=== PATIENT | female | born 1940 | race Caucasian/White ===

== ENCOUNTER 2017-10-04 13:33 | Emergency (ER) | payer MEDICARE, BC ==
[~2017-10-04] VITALS: Ht 157.5 cm; Wt 78.5 kg
[2017-10-04] MEDS ORDERED: normal saline 1000ML IV soln IVB ONE (13:45)
[2017-10-04 14:27] LABS: BASOPHILS # (AUTO) 0.1 X10'3 (0-0.2); BASOPHILS % (AUTO) 0.8 % (0-1); EOSINOPHILS # (AUTO) 0.1 X10'3 (0-0.9); EOSINOPHILS % (AUTO) 1.9 % (0-6); HEMATOCRIT 37.8 % (35.0-45.0); HEMOGLOBIN 12.2 g/dl (12.0-16.0); LYMPHOCYTES # (AUTO) 0.6 X10'3 (1.1-4.8); LYMPHOCYTES % (AUTO) 8.3 % (21-51); MEAN CORPUSCULAR HGB CONC 32.3 % (33.0-36.5); MEAN CORPUSCULAR VOLUME 80.5 FL (78-98); MEAN PLATELET VOLUME 8.1 FL (7.4-10.4); MONOCYTES # (AUTO) 0.4 X10'3 (0-0.9); MONOCYTES % (AUTO) 5.5 % (2-12); NEUTROPHILS # (AUTO) 6.2 X10'3 (1.8-7.7); NEUTROPHILS % (AUTO) 83.5 % (42-75); PLATELET COUNT 223 X10'3 (140-440); WHITE BLOOD COUNT 7.4 X10'3 (4.5-11.0)
[2017-10-04 14:37] LABS: ALANINE AMINOTRANSFERASE 13 U/L (12-78); ALBUMIN 3.5 G/DL (3.4-5.0); ALBUMIN/GLOBULIN RATIO 0.9 (1.1-1.5); ALKALINE PHOSPHATASE 112 IU/L (46-116); ANION GAP 13 (8-16); ASPARTATE AMINO TRANSFERASE 16 U/L (10-37); BILIRUBIN,TOTAL 0.5 MG/DL (0.1-1.0); BLOOD UREA NITROGEN 30 MG/DL (7-18); CALCIUM 9.1 MG/DL (8.5-10.1); CHLORIDE 110 MMOL/L (99-107); CREATININE 1.88 MG/DL (0.40-0.90); GLUCOSE 96 MG/DL (70-104); POTASSIUM 4.9 MMOL/L (3.5-5.1); SODIUM 141 MMOL/L (135-145); TOTAL CARBON DIOXIDE 17.6 MMOL/L (24-32); TOTAL PROTEIN 7.3 G/DL (6.4-8.2); eGFR 26 ML/MIN
[2017-10-04 14:45] LABS: MAGNESIUM 1.7 MG/DL (1.5-2.4)
[2017-10-04] MEDS ORDERED: HYDROcodone/acetaminophen 5mg/325mg tablet PO ONE (15:05)
[2017-10-04] MEDS ORDERED: HYDR-3965 PO (15:05)
[2017-10-04] MEDS ORDERED: normal saline 1000ml 1,000 ML IV ONE (15:10)
[2017-10-04 16:18] VITALS: BP 154/101
[2017-10-04 16:35] LABS: CLARITY,URINE SLIGHTLY CLOUDY (Clear); COLOR,URINE YELLOW (Yellow); GLUCOSE, URINE NEGATIVE (Neg); KETONES,URINE NEGATIVE (Neg); LEUKOCYTE ESTERASE ,URINE NEGATIVE (Neg); NITRITES, URINE NEGATIVE (Neg); OCCULT BLOOD,URINE NEGATIVE (Neg); PH,URINE 5.5 (4.8-8.0); PROTEIN,URINE TRACE mg/dl (Neg); UROBILINOGEN,URINE 0.2 E.U/dL (0.2-1.0)
[2017-10-04 16:36] LABS: UA COLLECTION TYPE CLN CATCH MIDSTREAM
[2017-10-04 16:48] LABS: SQUAMOUS EPITHELIAL CELL,UR MODERATE /LPF (FEW)
[2017-10-04 16:49] LABS: BACTERIA,URINE 1+ /HPF (Neg); RBC,URINE 0-2 /HPF (0-2); WBC,URINE 0-4 /HPF (0-4)
== END 2017-10-04 16:27 | disposition home or self-care (01) ==
LOC: ER 13:34
DX: S32.019A Unspecified fracture of first lumbar vertebra, initial encounter for closed fracture (principal); S32.049A Unspecified fracture of fourth lumbar vertebra, initial encounter for closed fracture; E86.0 Dehydration; I10 Essential (primary) hypertension; J44.9 Chronic obstructive pulmonary disease, unspecified; Z88.0 Allergy status to penicillin; Z86.73 Personal history of transient ischemic attack (TIA), and cerebral infarction without residual deficits; Z98.890 Other specified postprocedural states; W19.XXXA Unspecified fall, initial encounter; Y93.89 Activity, other specified; Y92.89 Other specified places as the place of occurrence of the external cause; Y99.8 Other external cause status
CPT/HCPCS: 36415; 72070; 72100; 80053; 81001; 83735; 84443; 84484; 85025; 93005; 96360; 99285; J7030

== ENCOUNTER 2017-10-15 17:45 | Inpatient (IN) | payer MEDICARE, BC ==
[~2017-10-15] VITALS: Ht 154.9 cm; Wt 77.7 kg
[~2017-10-15 17:45] MED LIST: HYDR-3965 PO
[2017-10-15] MEDS ORDERED: normal saline 1000ML IV soln IVB ONE ×2 (19:00→20:20)
[2017-10-15 19:17] LABS: BASOPHILS % (AUTO) 0.2 % (0-1); EOSINOPHILS # (AUTO) 0.2 X10'3 (0-0.9); EOSINOPHILS % (AUTO) 2.2 % (0-6); HEMATOCRIT 35.2 % (35.0-45.0); HEMOGLOBIN 11.6 g/dl (12.0-16.0); LYMPHOCYTES # (AUTO) 0.7 X10'3 (1.1-4.8); LYMPHOCYTES % (AUTO) 8.4 % (21-51); MEAN CORPUSCULAR HGB CONC 32.8 % (33.0-36.5); MEAN CORPUSCULAR VOLUME 82.3 FL (78-98); MEAN PLATELET VOLUME 8.8 FL (7.4-10.4); MONOCYTES # (AUTO) 0.8 X10'3 (0-0.9); MONOCYTES % (AUTO) 10.7 % (2-12); NEUTROPHILS # (AUTO) 6.1 X10'3 (1.8-7.7); NEUTROPHILS % (AUTO) 78.5 % (42-75); PLATELET COUNT 298 X10'3 (140-440); RED BLOOD COUNT 4.27 X10'6 (4.20-5.60); RED CELL DISTRIBUTION WIDTH 20.4 % (11.5-14.5); WHITE BLOOD COUNT 7.8 X10'3 (4.5-11.0)
[2017-10-15 19:25] LABS: ALANINE AMINOTRANSFERASE 11 U/L (12-78); ALBUMIN/GLOBULIN RATIO 0.7 (1.1-1.5); ALKALINE PHOSPHATASE 125 IU/L (46-116); ANION GAP 12 (8-16); ASPARTATE AMINO TRANSFERASE 17 U/L (10-37); BILIRUBIN,TOTAL 0.4 MG/DL (0.1-1.0); BLOOD UREA NITROGEN 50 MG/DL (7-18); BUN/CREATININE RATIO 20.5 (6.6-38.0); CALCIUM 9.4 MG/DL (8.5-10.1); CHLORIDE 108 MMOL/L (99-107); CREATININE 2.44 MG/DL (0.40-0.90); GLUCOSE 100 MG/DL (70-104); LIPASE 307 U/L (73-393); POTASSIUM 4.2 MMOL/L (3.5-5.1); SODIUM 139 MMOL/L (135-145); TOTAL CARBON DIOXIDE 18.9 MMOL/L (24-32); TOTAL PROTEIN 7.1 G/DL (6.4-8.2); eGFR 19 ML/MIN
[2017-10-15 19:53] LABS: CLARITY,URINE SLIGHTLY CLOUDY (Clear); COLOR,URINE YELLOW (Yellow); GLUCOSE, URINE NEGATIVE (Neg); KETONES,URINE NEGATIVE (Neg); LEUKOCYTE ESTERASE ,URINE SMALL (Neg); NITRITES, URINE NEGATIVE (Neg); OCCULT BLOOD,URINE SMALL (Neg); PROTEIN,URINE TRACE mg/dl (Neg); UROBILINOGEN,URINE 0.2 E.U/dL (0.2-1.0)
[2017-10-15 20:04] LABS: UA COLLECTION TYPE CLN CATCH MIDSTREAM
[2017-10-15 20:06] LABS: BACTERIA,URINE FEW /HPF (Neg); RBC,URINE 0-2 /HPF (0-2); SQUAMOUS EPITHELIAL CELL,UR MODERATE /LPF (FEW); WBC,URINE 0-4 /HPF (0-4)
[2017-10-15] MEDS ORDERED: ACET-2119 PO (20:53)
[2017-10-15] MEDS ORDERED: ALLO100T PO (20:53)
[2017-10-15] MEDS ORDERED: DRON400T2 PO (20:53)
[2017-10-15] MEDS ORDERED: FOLI0.4T2 PO (20:53)
[2017-10-15] MEDS ORDERED: FAMO20TA8 PO (20:53)
[2017-10-15] MEDS ORDERED: TRAM50TA2 PO (20:53)
[2017-10-15] MEDS ORDERED: LEVO50TA8 PO (20:53)
[2017-10-15] MEDS: normal saline 1000ml 1,000 ML IV SCH (22:51)
[2017-10-15] MEDS ORDERED: mag hydrox/Alum hydrox/simeth 30ml oral suspension PO PRN (22:55)
[2017-10-15] MEDS ORDERED: ondansetron/PF 4mg/2ml inj IV PRN (22:55)
[2017-10-15] MEDS ORDERED: magnesium hydroxide 30ml (MOM) UD suspension PO PRN (22:55)
[2017-10-15] MEDS ORDERED: acetaminophen 325mg tablet PO PRN (22:55)
[2017-10-16] VITALS: BP 130/77
[2017-10-16 04:29] LABS: BASOPHILS % (AUTO) 0.6 % (0-1); EOSINOPHILS # (AUTO) 0.1 X10'3 (0-0.9); EOSINOPHILS % (AUTO) 2.2 % (0-6); HEMOGLOBIN 9.7 g/dl (12.0-16.0); LYMPHOCYTES # (AUTO) 0.9 X10'3 (1.1-4.8); LYMPHOCYTES % (AUTO) 14.7 % (21-51); MEAN CORPUSCULAR HEMOGLOBIN 26.3 PG (27.0-31.0); MEAN CORPUSCULAR HGB CONC 32.3 % (33.0-36.5); MEAN CORPUSCULAR VOLUME 81.4 FL (78-98); MONOCYTES # (AUTO) 0.6 X10'3 (0-0.9); MONOCYTES % (AUTO) 11.1 % (2-12); NEUTROPHILS # (AUTO) 4.2 X10'3 (1.8-7.7); NEUTROPHILS % (AUTO) 71.4 % (42-75); PLATELET COUNT 259 X10'3 (140-440); RED BLOOD COUNT 3.68 X10'6 (4.20-5.60); RED CELL DISTRIBUTION WIDTH 20.2 % (11.5-14.5); WHITE BLOOD COUNT 5.9 X10'3 (4.5-11.0)
[2017-10-16 05:00] LABS: ALANINE AMINOTRANSFERASE 9 U/L (12-78); ALBUMIN 2.4 G/DL (3.4-5.0); ALBUMIN/GLOBULIN RATIO 0.7 (1.1-1.5); ALKALINE PHOSPHATASE 101 IU/L (46-116); ANION GAP 14 (8-16); ASPARTATE AMINO TRANSFERASE 19 U/L (10-37); BILIRUBIN,TOTAL 0.3 MG/DL (0.1-1.0); BLOOD UREA NITROGEN 40 MG/DL (7-18); BUN/CREATININE RATIO 22.1 (6.6-38.0); CHLORIDE 113 MMOL/L (99-107); CREATININE 1.81 MG/DL (0.40-0.90); GLUCOSE 82 MG/DL (70-104); POTASSIUM 3.8 MMOL/L (3.5-5.1); SODIUM 144 MMOL/L (135-145); TOTAL CARBON DIOXIDE 16.6 MMOL/L (24-32); TOTAL PROTEIN 5.7 G/DL (6.4-8.2); eGFR 27 ML/MIN
[2017-10-16 06:00] VITALS: BP 117/66
[2017-10-16] MEDS: heparin, porcine 5000 units/ml vial SQ SCH ×2 (07:07→19:58)
[2017-10-16] MEDS: levoTHYROXINE 25mcg tablet PO SCH (07:07)
[2017-10-16] MEDS: famotidine 20mg tablet PO SCH ×2 (07:07→19:58)
[2017-10-16] MEDS: folic acid 1mg tablet PO SCH (07:07)
[2017-10-16] MEDS: dronedarone hcl 400mg tablet PO SCH ×2 (07:14→19:57)
[2017-10-16] MEDS: LIDOcaine 5% patch TP SCH (07:17)
[2017-10-16 10:00] VITALS: BP 129/78
[2017-10-16] MEDS: normal saline 1000ml 1,000 ML IV SCH ×2 (15:57→23:20)
[2017-10-16] MEDS: acetaminophen 325mg tablet PO PRN ×2 (18:10→22:03)
[2017-10-16 18:30] VITALS: BP 139/78
[2017-10-16 23:03] VITALS: BP 138/66
[2017-10-17] MEDS: normal saline 1000ml 1,000 ML IV SCH ×2 (04:22→23:27)
[2017-10-17] MEDS: acetaminophen 325mg tablet PO PRN ×4 (05:42→23:28)
[2017-10-17 06:00] VITALS: BP 136/69
[2017-10-17 07:11] LABS: BASOPHILS % (AUTO) 0.2 % (0-1); EOSINOPHILS # (AUTO) 0.1 X10'3 (0-0.9); EOSINOPHILS % (AUTO) 3.3 % (0-6); HEMOGLOBIN 9.6 g/dl (12.0-16.0); LYMPHOCYTES # (AUTO) 0.7 X10'3 (1.1-4.8); LYMPHOCYTES % (AUTO) 15.2 % (21-51); MEAN CORPUSCULAR HEMOGLOBIN 26.3 PG (27.0-31.0); MEAN CORPUSCULAR HGB CONC 32.2 % (33.0-36.5); MEAN CORPUSCULAR VOLUME 81.6 FL (78-98); MEAN PLATELET VOLUME 7.8 FL (7.4-10.4); MONOCYTES # (AUTO) 0.4 X10'3 (0-0.9); MONOCYTES % (AUTO) 9.8 % (2-12); NEUTROPHILS # (AUTO) 3.2 X10'3 (1.8-7.7); NEUTROPHILS % (AUTO) 71.5 % (42-75); PLATELET COUNT 274 X10'3 (140-440); RED BLOOD COUNT 3.67 X10'6 (4.20-5.60); RED CELL DISTRIBUTION WIDTH 19.9 % (11.5-14.5); WHITE BLOOD COUNT 4.4 X10'3 (4.5-11.0)
[2017-10-17 07:19] LABS: IMMUNOGLOBULIN A, QN, SERUM 61 mg/dL (64-422); IMMUNOGLOBULIN G, QN, SERUM 711 mg/dL (700-1600); IMMUNOGLOBULIN M, QN, SERUM 33 mg/dL (26-217)
[2017-10-17 07:39] LABS: % IRON SATURATION 8 % (11-46); IRON 15 UG/DL (49-151); TOTAL IRON BINDING CAPACITY 183 UG/DL (259-388)
[2017-10-17 07:44] LABS: ALANINE AMINOTRANSFERASE 10 U/L (12-78); ALBUMIN 2.5 G/DL (3.4-5.0); ALBUMIN/GLOBULIN RATIO 0.7 (1.1-1.5); ALKALINE PHOSPHATASE 100 IU/L (46-116); ANION GAP 11 (8-16); ASPARTATE AMINO TRANSFERASE 17 U/L (10-37); BILIRUBIN,TOTAL 0.3 MG/DL (0.1-1.0); BLOOD UREA NITROGEN 24 MG/DL (7-18); BUN/CREATININE RATIO 16.6 (6.6-38.0); CALCIUM 8.8 MG/DL (8.5-10.1); CHLORIDE 115 MMOL/L (99-107); CREATININE 1.45 MG/DL (0.40-0.90); FERRITIN 120 NG/ML (8-252); GLUCOSE 83 MG/DL (70-104); POTASSIUM 3.5 MMOL/L (3.5-5.1); SODIUM 143 MMOL/L (135-145); TOTAL PROTEIN 5.9 G/DL (6.4-8.2); eGFR 35 ML/MIN
[2017-10-17] MEDS: famotidine 20mg tablet PO SCH ×2 (08:22→19:34)
[2017-10-17] MEDS: folic acid 1mg tablet PO SCH (08:22)
[2017-10-17] MEDS: dronedarone hcl 400mg tablet PO SCH ×2 (08:22→19:34)
[2017-10-17] MEDS: levoTHYROXINE 25mcg tablet PO SCH (08:22)
[2017-10-17] MEDS: LIDOcaine 5% patch TP SCH (08:23)
[2017-10-17] MEDS: heparin, porcine 5000 units/ml vial SQ SCH ×3 (08:23→19:35)
[2017-10-17 10:00] VITALS: BP 131/68
[2017-10-17 11:25] LABS: OCCULT BLOOD STOOL NEGATIVE (Neg)
[2017-10-17 13:33] LABS: C DIFF SPECIMEN=DIARRHEA? ACCEPTABLE; C DIFFICILE TOXINS A&B NEGATIVE (Neg)
[2017-10-17 13:37] LABS: C DIFF ANTIGEN POSITIVE (NEGATIVE); C DIFF TOXIN (LAMP) POSITIVE (NEG)
[2017-10-17 22:24] VITALS: BP 140/76
[2017-10-18] MEDS: acetaminophen 325mg tablet PO PRN ×3 (03:17→19:34)
[2017-10-18 05:00] VITALS: BP 132/73
[2017-10-18 05:48] LABS: BASOPHILS % (AUTO) 0.8 % (0-1); EOSINOPHILS # (AUTO) 0.2 X10'3 (0-0.9); EOSINOPHILS % (AUTO) 3.9 % (0-6); HEMATOCRIT 28.7 % (35.0-45.0); HEMOGLOBIN 9.4 g/dl (12.0-16.0); LYMPHOCYTES # (AUTO) 0.8 X10'3 (1.1-4.8); LYMPHOCYTES % (AUTO) 16.6 % (21-51); MEAN CORPUSCULAR HEMOGLOBIN 26.5 PG (27.0-31.0); MEAN CORPUSCULAR HGB CONC 32.7 % (33.0-36.5); MONOCYTES # (AUTO) 0.4 X10'3 (0-0.9); MONOCYTES % (AUTO) 8.4 % (2-12); NEUTROPHILS # (AUTO) 3.3 X10'3 (1.8-7.7); NEUTROPHILS % (AUTO) 70.3 % (42-75); PLATELET COUNT 252 X10'3 (140-440); RED BLOOD COUNT 3.55 X10'6 (4.20-5.60); RED CELL DISTRIBUTION WIDTH 20.3 % (11.5-14.5); WHITE BLOOD COUNT 4.6 X10'3 (4.5-11.0)
[2017-10-18 05:52] LABS: ALANINE AMINOTRANSFERASE 9 U/L (12-78); ALBUMIN 2.3 G/DL (3.4-5.0); ALBUMIN/GLOBULIN RATIO 0.7 (1.1-1.5); ALKALINE PHOSPHATASE 98 IU/L (46-116); ANION GAP 12 (8-16); ASPARTATE AMINO TRANSFERASE 10 U/L (10-37); BILIRUBIN,TOTAL 0.3 MG/DL (0.1-1.0); BLOOD UREA NITROGEN 18 MG/DL (7-18); BUN/CREATININE RATIO 15.8 (6.6-38.0); CALCIUM 7.8 MG/DL (8.5-10.1); CHLORIDE 115 MMOL/L (99-107); CREATININE 1.14 MG/DL (0.40-0.90); GLUCOSE 87 MG/DL (70-104); POTASSIUM 3.3 MMOL/L (3.5-5.1); SODIUM 144 MMOL/L (135-145); TOTAL CARBON DIOXIDE 16.8 MMOL/L (24-32); TOTAL PROTEIN 5.4 G/DL (6.4-8.2); eGFR 46 ML/MIN
[2017-10-18] MEDS ORDERED: potassium Cl 20 mEq SR tablet PO PRN (07:00)
[2017-10-18] MEDS ORDERED: magnesium 4gm in 100ml NS 100 ML IV PRN (07:00)
[2017-10-18] MEDS ORDERED: potassium Cl 40MEQ/NS 500ml 500 ML IV PRN ×2 (07:00)
[2017-10-18] MEDS ORDERED: magnesium Cl slow-release 64mg tablet PO PRN (07:00)
[2017-10-18] MEDS: normal saline 1000ml 1,000 ML IV SCH (07:49)
[2017-10-18] MEDS: levoTHYROXINE 25mcg tablet PO SCH (07:51)
[2017-10-18] MEDS: heparin, porcine 5000 units/ml vial SQ SCH (07:51)
[2017-10-18] MEDS: LIDOcaine 5% patch TP SCH (07:51)
[2017-10-18] MEDS: famotidine 20mg tablet PO SCH ×2 (07:52→19:34)
[2017-10-18] MEDS: folic acid 1mg tablet PO SCH (07:52)
[2017-10-18] MEDS: potassium Cl 20 mEq SR tablet PO PRN ×3 (07:52→20:14)
[2017-10-18] MEDS: dronedarone hcl 400mg tablet PO SCH ×2 (07:53→19:35)
[2017-10-18 10:00] VITALS: BP 132/78
[2017-10-18 18:00] VITALS: BP 125/76
[2017-10-18] MEDS: lactobacillus rhamnosus 10,000 MMU CELLS/CAPSULE PO SCH (19:33)
[2017-10-18 22:10] VITALS: BP 147/71
[2017-10-19] VITALS (17 sets, daily range): BP systolic 123–165; BP diastolic 63–99
[2017-10-19 06:03] LABS: BASOPHILS % (AUTO) 0.5 % (0-1); EOSINOPHILS # (AUTO) 0.2 X10'3 (0-0.9); EOSINOPHILS % (AUTO) 3.2 % (0-6); HEMATOCRIT 30.9 % (35.0-45.0); LYMPHOCYTES # (AUTO) 0.7 X10'3 (1.1-4.8); LYMPHOCYTES % (AUTO) 12.8 % (21-51); MEAN CORPUSCULAR HEMOGLOBIN 26.4 PG (27.0-31.0); MEAN CORPUSCULAR HGB CONC 32.5 % (33.0-36.5); MEAN CORPUSCULAR VOLUME 81.2 FL (78-98); MEAN PLATELET VOLUME 7.7 FL (7.4-10.4); MONOCYTES # (AUTO) 0.4 X10'3 (0-0.9); MONOCYTES % (AUTO) 6.3 % (2-12); NEUTROPHILS # (AUTO) 4.4 X10'3 (1.8-7.7); NEUTROPHILS % (AUTO) 77.2 % (42-75); PLATELET COUNT 260 X10'3 (140-440); RED CELL DISTRIBUTION WIDTH 20.3 % (11.5-14.5); WHITE BLOOD COUNT 5.7 X10'3 (4.5-11.0)
[2017-10-19] MEDS: heparin, porcine 5000 units/ml vial SQ SCH ×2 (06:18→19:48)
[2017-10-19 06:35] LABS: ALANINE AMINOTRANSFERASE 9 U/L (12-78); ALBUMIN 2.4 G/DL (3.4-5.0); ALBUMIN/GLOBULIN RATIO 0.7 (1.1-1.5); ALKALINE PHOSPHATASE 111 IU/L (46-116); ANION GAP 16 (8-16); ASPARTATE AMINO TRANSFERASE 13 U/L (10-37); BILIRUBIN,TOTAL 0.3 MG/DL (0.1-1.0); BLOOD UREA NITROGEN 17 MG/DL (7-18); BUN/CREATININE RATIO 14.5 (6.6-38.0); CALCIUM 8.1 MG/DL (8.5-10.1); CHLORIDE 116 MMOL/L (99-107); CREATININE 1.17 MG/DL (0.40-0.90); GLUCOSE 74 MG/DL (70-104); MAGNESIUM 1.4 MG/DL (1.5-2.4); POTASSIUM 4.3 MMOL/L (3.5-5.1); SODIUM 145 MMOL/L (135-145); TOTAL PROTEIN 5.7 G/DL (6.4-8.2); eGFR 45 ML/MIN
[2017-10-19 06:40] LABS: TOTAL CARBON DIOXIDE 13.4 MMOL/L (24-32)
[2017-10-19] MEDS: dronedarone hcl 400mg tablet PO SCH ×2 (07:40→19:44)
[2017-10-19] MEDS: folic acid 1mg tablet PO SCH (07:40)
[2017-10-19] MEDS: lactobacillus rhamnosus 10,000 MMU CELLS/CAPSULE PO SCH ×2 (07:40→19:44)
[2017-10-19] MEDS: levoTHYROXINE 25mcg tablet PO SCH (07:48)
[2017-10-19] MEDS: famotidine 20mg tablet PO SCH ×2 (07:48→19:44)
[2017-10-19] MEDS: LIDOcaine 5% patch TP SCH (07:52)
[2017-10-19] MEDS: acetaminophen 325mg tablet PO PRN (07:53)
[2017-10-19] MEDS: magnesium/D5W IVPB 100 ML IV PRN ×2 (10:36→11:43)
[2017-10-19] MEDS ORDERED: vancomycin/NS 1 GM ADD-VANTAGE 250 ML IV ONE (14:00)
[2017-10-19] MEDS ORDERED: clindamycin 600mg/D5W 50ml 50 ML IV ONE (14:00)
[2017-10-19] MEDS ORDERED: ROPIVAcaine 0.5% (5mg/ml) 30ml vial ONE (14:34)
[2017-10-19] MEDS ORDERED: epiNEPHrine 1 mg/ml inj ONE (14:35)
[2017-10-19] MEDS ORDERED: ceFAZolin 1000mg inj ONE (14:35)
[2017-10-19] MEDS ORDERED: BUPIVAcaine/PF 7.5mg/ml (0.75%) 10ml vial ONE (14:35)
[2017-10-19] MEDS ORDERED: iohexol 240mg/ml 10ml vial ONE ×2 (14:45→16:48)
[2017-10-19] MEDS ORDERED: sevoflurane 250ml liquid IH ONE (16:02)
[2017-10-19] MEDS ORDERED: fentaNYL /PF 50mcg/ml 5ml ampule ONE (16:39)
[2017-10-19] MEDS ORDERED: etomidate 2mg/ml inj. ONE (16:43)
[2017-10-19] MEDS ORDERED: metoprolol tartrate 1mg/ml inj IV ONE (16:43)
[2017-10-19] MEDS ORDERED: dexamethasone sod phosphate 4mg/ml inj. ONE (16:56)
[2017-10-19] MEDS ORDERED: iohexol 300 MG/1 ML 50ml polymer ONE (17:20)
[2017-10-19] MEDS ORDERED: albumin (Human) 5% 250ml 250 ML IV ONE (17:32)
[2017-10-19] MEDS: sodium bicarbonate (8.4%) inj. 100 MEQ in dextrose 5%-water 1,000 ML IV SCH (19:51)
[2017-10-20 02:00] VITALS: BP 134/81
[2017-10-20] MEDS: sodium bicarbonate (8.4%) inj. 100 MEQ in dextrose 5%-water 1,000 ML IV SCH ×3 (04:45→22:39)
[2017-10-20] MEDS: acetaminophen 325mg tablet PO PRN ×2 (04:52→22:23)
[2017-10-20 05:00] VITALS: BP 129/70
[2017-10-20 07:07] LABS: BASOPHILS % (AUTO) 0.1 % (0-1); EOSINOPHILS % (AUTO) 0.1 % (0-6); HEMATOCRIT 30.6 % (35.0-45.0); HEMOGLOBIN 9.9 g/dl (12.0-16.0); LYMPHOCYTES # (AUTO) 0.2 X10'3 (1.1-4.8); LYMPHOCYTES % (AUTO) 3.2 % (21-51); MEAN CORPUSCULAR HEMOGLOBIN 26.8 PG (27.0-31.0); MEAN CORPUSCULAR HGB CONC 32.5 % (33.0-36.5); MEAN CORPUSCULAR VOLUME 82.4 FL (78-98); MEAN PLATELET VOLUME 7.7 FL (7.4-10.4); MONOCYTES % (AUTO) 0.7 % (2-12); NEUTROPHILS # (AUTO) 5.3 X10'3 (1.8-7.7); NEUTROPHILS % (AUTO) 95.9 % (42-75); PLATELET COUNT 257 X10'3 (140-440); RED BLOOD COUNT 3.71 X10'6 (4.20-5.60); RED CELL DISTRIBUTION WIDTH 18.4 % (11.5-14.5); WHITE BLOOD COUNT 5.5 X10'3 (4.5-11.0)
[2017-10-20] MEDS: folic acid 1mg tablet PO SCH (07:15)
[2017-10-20] MEDS: famotidine 20mg tablet PO SCH ×2 (07:15→19:39)
[2017-10-20] MEDS: levoTHYROXINE 25mcg tablet PO SCH (07:15)
[2017-10-20] MEDS: lactobacillus rhamnosus 10,000 MMU CELLS/CAPSULE PO SCH ×2 (07:15→19:39)
[2017-10-20] MEDS: heparin, porcine 5000 units/ml vial SQ SCH ×2 (07:17→19:39)
[2017-10-20] MEDS: LIDOcaine 5% patch TP SCH (07:18)
[2017-10-20] MEDS: dronedarone hcl 400mg tablet PO SCH ×2 (07:23→19:39)
[2017-10-20 07:41] LABS: ALANINE AMINOTRANSFERASE 10 U/L (12-78); ALBUMIN 2.6 G/DL (3.4-5.0); ALBUMIN/GLOBULIN RATIO 0.9 (1.1-1.5); ALKALINE PHOSPHATASE 114 IU/L (46-116); ANION GAP 10 (8-16); ASPARTATE AMINO TRANSFERASE 12 U/L (10-37); BILIRUBIN,TOTAL 0.3 MG/DL (0.1-1.0); BLOOD UREA NITROGEN 12 MG/DL (7-18); BUN/CREATININE RATIO 9.8 (6.6-38.0); CALCIUM 8.1 MG/DL (8.5-10.1); CHLORIDE 109 MMOL/L (99-107); CREATININE 1.22 MG/DL (0.40-0.90); GLUCOSE 203 MG/DL (70-104); MAGNESIUM 2.1 MG/DL (1.5-2.4); POTASSIUM 4.1 MMOL/L (3.5-5.1); SODIUM 139 MMOL/L (135-145); TOTAL CARBON DIOXIDE 19.8 MMOL/L (24-32); TOTAL PROTEIN 5.6 G/DL (6.4-8.2); eGFR 43 ML/MIN
[2017-10-20 10:00] VITALS: BP 133/75
[2017-10-20 18:00] VITALS: BP 135/91
[2017-10-20 22:00] VITALS: BP 146/93
[2017-10-21] MEDS: acetaminophen 325mg tablet PO PRN ×2 (04:52→20:49)
[2017-10-21 06:00] VITALS: BP 144/66
[2017-10-21 06:55] LABS: POTASSIUM 3.5 MMOL/L (3.5-5.1)
[2017-10-21] MEDS: folic acid 1mg tablet PO SCH (07:29)
[2017-10-21] MEDS: famotidine 20mg tablet PO SCH ×2 (07:29→20:28)
[2017-10-21] MEDS: LIDOcaine 5% patch TP SCH (07:29)
[2017-10-21] MEDS: dronedarone hcl 400mg tablet PO SCH ×2 (07:29→20:28)
[2017-10-21] MEDS: levoTHYROXINE 25mcg tablet PO SCH (07:29)
[2017-10-21] MEDS: lactobacillus rhamnosus 10,000 MMU CELLS/CAPSULE PO SCH ×2 (07:29→20:28)
[2017-10-21] MEDS: heparin, porcine 5000 units/ml vial SQ SCH ×2 (07:30→20:29)
[2017-10-21 10:00] VITALS: BP 126/77
[2017-10-21 12:20] LABS: BASOPHILS % (AUTO) 0.1 % (0-1); EOSINOPHILS # (AUTO) 0.1 X10'3 (0-0.9); HEMOGLOBIN 9.6 g/dl (12.0-16.0); LYMPHOCYTES # (AUTO) 0.6 X10'3 (1.1-4.8); LYMPHOCYTES % (AUTO) 7.2 % (21-51); MEAN CORPUSCULAR HEMOGLOBIN 26.6 PG (27.0-31.0); MEAN CORPUSCULAR HGB CONC 32.9 % (33.0-36.5); MEAN PLATELET VOLUME 7.6 FL (7.4-10.4); MONOCYTES # (AUTO) 0.5 X10'3 (0-0.9); MONOCYTES % (AUTO) 6.1 % (2-12); NEUTROPHILS # (AUTO) 7.5 X10'3 (1.8-7.7); NEUTROPHILS % (AUTO) 85.6 % (42-75); PLATELET COUNT 249 X10'3 (140-440); RED BLOOD COUNT 3.59 X10'6 (4.20-5.60); RED CELL DISTRIBUTION WIDTH 19.9 % (11.5-14.5); WHITE BLOOD COUNT 8.8 X10'3 (4.5-11.0)
[2017-10-21 12:39] LABS: ALBUMIN 2.8 G/DL (3.4-5.0); ANION GAP 8 (8-16); BLOOD UREA NITROGEN 17 MG/DL (7-18); BUN/CREATININE RATIO 10.6 (6.6-38.0); CHLORIDE 106 MMOL/L (99-107); GLUCOSE 85 MG/DL (70-104); POTASSIUM 3.2 MMOL/L (3.5-5.1); SODIUM 141 MMOL/L (135-145); TOTAL CARBON DIOXIDE 26.6 MMOL/L (24-32); eGFR 31 ML/MIN
[2017-10-21] MEDS: normal saline 1000ml 1,000 ML IV SCH (15:10)
[2017-10-21 18:00] VITALS: BP 131/61
[2017-10-21 22:00] VITALS: BP 135/65
[2017-10-21] MEDS ORDERED: magnesium 4gm in 100ml NS 100 ML IV PRN (23:15)
[2017-10-21] MEDS ORDERED: potassium Cl 20 mEq SR tablet PO PRN (23:15)
[2017-10-21] MEDS ORDERED: magnesium Cl slow-release 64mg tablet PO PRN (23:15)
[2017-10-21] MEDS ORDERED: magnesium/D5W IVPB 100 ML IV PRN (23:15)
[2017-10-21] MEDS ORDERED: potassium Cl 40MEQ/NS 500ml 500 ML IV PRN ×2 (23:15)
[2017-10-21] MEDS: potassium Cl 20 mEq SR tablet PO PRN (23:52)
[2017-10-22] MEDS: normal saline 1000ml 1,000 ML IV SCH ×2 (03:07→19:05)
[2017-10-22 05:00] VITALS: BP 127/69
[2017-10-22 06:42] LABS: BASOPHILS % (AUTO) 0.5 % (0-1); EOSINOPHILS # (AUTO) 0.1 X10'3 (0-0.9); EOSINOPHILS % (AUTO) 1.4 % (0-6); HEMATOCRIT 27.2 % (35.0-45.0); HEMOGLOBIN 8.8 g/dl (12.0-16.0); LYMPHOCYTES # (AUTO) 0.9 X10'3 (1.1-4.8); MEAN CORPUSCULAR HEMOGLOBIN 26.2 PG (27.0-31.0); MEAN CORPUSCULAR HGB CONC 32.2 % (33.0-36.5); MEAN CORPUSCULAR VOLUME 81.4 FL (78-98); MEAN PLATELET VOLUME 7.7 FL (7.4-10.4); MONOCYTES # (AUTO) 0.4 X10'3 (0-0.9); MONOCYTES % (AUTO) 7.1 % (2-12); NEUTROPHILS # (AUTO) 3.8 X10'3 (1.8-7.7); PLATELET COUNT 223 X10'3 (140-440); RED BLOOD COUNT 3.34 X10'6 (4.20-5.60); WHITE BLOOD COUNT 5.1 X10'3 (4.5-11.0)
[2017-10-22 06:58] LABS: ALANINE AMINOTRANSFERASE 12 U/L (12-78); ALBUMIN 2.3 G/DL (3.4-5.0); ALBUMIN/GLOBULIN RATIO 0.9 (1.1-1.5); ALKALINE PHOSPHATASE 97 IU/L (46-116); ANION GAP 9 (8-16); ASPARTATE AMINO TRANSFERASE 14 U/L (10-37); BILIRUBIN,TOTAL 0.3 MG/DL (0.1-1.0); BLOOD UREA NITROGEN 14 MG/DL (7-18); CALCIUM 7.9 MG/DL (8.5-10.1); CHLORIDE 111 MMOL/L (99-107); CREATININE 1.17 MG/DL (0.40-0.90); GLUCOSE 75 MG/DL (70-104); MAGNESIUM 1.7 MG/DL (1.5-2.4); PHOSPHORUS 2.4 MG/DL (2.3-4.5); POTASSIUM 3.5 MMOL/L (3.5-5.1); SODIUM 146 MMOL/L (135-145); TOTAL CARBON DIOXIDE 25.9 MMOL/L (24-32); eGFR 45 ML/MIN
[2017-10-22] MEDS: folic acid 1mg tablet PO SCH (07:15)
[2017-10-22] MEDS: dronedarone hcl 400mg tablet PO SCH ×2 (07:15→21:23)
[2017-10-22] MEDS: LIDOcaine 5% patch TP SCH (07:15)
[2017-10-22] MEDS: famotidine 20mg tablet PO SCH ×2 (07:15→21:23)
[2017-10-22] MEDS: lactobacillus rhamnosus 10,000 MMU CELLS/CAPSULE PO SCH ×2 (07:16→21:23)
[2017-10-22] MEDS: levoTHYROXINE 25mcg tablet PO SCH (07:16)
[2017-10-22] MEDS: heparin, porcine 5000 units/ml vial SQ SCH ×2 (07:17→21:25)
[2017-10-22] MEDS: potassium Cl 20 mEq SR tablet PO PRN ×2 (08:59→13:52)
[2017-10-22 10:00] VITALS: BP 129/67
[2017-10-22] MEDS: metroNIDAZOLE-Flagyl 500mg/NS 100 ML IV SCH (16:28)
[2017-10-22 19:00] VITALS: BP 149/82
[2017-10-22 22:00] VITALS: BP 164/87
[2017-10-23] MEDS: metroNIDAZOLE-Flagyl 500mg/NS 100 ML IV SCH ×2 (00:33→07:17)
[2017-10-23] MEDS: acetaminophen 325mg tablet PO PRN (04:59)
[2017-10-23 06:00] VITALS: BP 159/75
[2017-10-23 06:18] LABS: BASOPHILS % (AUTO) 0.4 % (0-1); EOSINOPHILS # (AUTO) 0.1 X10'3 (0-0.9); EOSINOPHILS % (AUTO) 2.1 % (0-6); HEMATOCRIT 28.5 % (35.0-45.0); HEMOGLOBIN 9.3 g/dl (12.0-16.0); LYMPHOCYTES # (AUTO) 0.6 X10'3 (1.1-4.8); LYMPHOCYTES % (AUTO) 15.4 % (21-51); MEAN CORPUSCULAR HEMOGLOBIN 26.5 PG (27.0-31.0); MEAN CORPUSCULAR HGB CONC 32.6 % (33.0-36.5); MEAN CORPUSCULAR VOLUME 81.1 FL (78-98); MEAN PLATELET VOLUME 8.1 FL (7.4-10.4); MONOCYTES # (AUTO) 0.4 X10'3 (0-0.9); MONOCYTES % (AUTO) 9.2 % (2-12); NEUTROPHILS % (AUTO) 72.9 % (42-75); PLATELET COUNT 202 X10'3 (140-440); RED BLOOD COUNT 3.51 X10'6 (4.20-5.60); RED CELL DISTRIBUTION WIDTH 19.7 % (11.5-14.5); WHITE BLOOD COUNT 4.2 X10'3 (4.5-11.0)
[2017-10-23 06:41] LABS: ALANINE AMINOTRANSFERASE 13 U/L (12-78); ALBUMIN 2.4 G/DL (3.4-5.0); ALBUMIN/GLOBULIN RATIO 0.9 (1.1-1.5); ALKALINE PHOSPHATASE 100 IU/L (46-116); ANION GAP 7 (8-16); ASPARTATE AMINO TRANSFERASE 12 U/L (10-37); BILIRUBIN,TOTAL 0.4 MG/DL (0.1-1.0); CALCIUM 7.9 MG/DL (8.5-10.1); CHLORIDE 110 MMOL/L (99-107); CREATININE 0.98 MG/DL (0.40-0.90); GLUCOSE 88 MG/DL (70-104); MAGNESIUM 1.4 MG/DL (1.5-2.4); PHOSPHORUS 1.9 MG/DL (2.3-4.5); POTASSIUM 3.6 MMOL/L (3.5-5.1); SODIUM 142 MMOL/L (135-145); TOTAL CARBON DIOXIDE 24.6 MMOL/L (24-32); TOTAL PROTEIN 5.1 G/DL (6.4-8.2); eGFR 55 ML/MIN
[2017-10-23 07:11] LABS: BLOOD UREA NITROGEN 9 MG/DL (7-18); BUN/CREATININE RATIO 9.2 (6.6-38.0)
[2017-10-23] MEDS: folic acid 1mg tablet PO SCH (07:16)
[2017-10-23] MEDS: lactobacillus rhamnosus 10,000 MMU CELLS/CAPSULE PO SCH (07:16)
[2017-10-23] MEDS: levoTHYROXINE 25mcg tablet PO SCH (07:16)
[2017-10-23] MEDS: famotidine 20mg tablet PO SCH (07:16)
[2017-10-23] MEDS: dronedarone hcl 400mg tablet PO SCH (07:17)
[2017-10-23] MEDS: heparin, porcine 5000 units/ml vial SQ SCH (07:17)
[2017-10-23] MEDS: LIDOcaine 5% patch TP SCH (07:18)
[2017-10-23 10:00] VITALS: BP 127/61
== END 2017-10-23 14:08 | DRG 477 ==
LOC: ER 17:46 → ED HOLD 22:51 → ORTHO 4S 23:40
PROVIDERS: ADMIT Internal Medicine; ATTEND Family Medicine
PROC: 0QU03JZ Supplement Lumbar Vertebra with Synthetic Substitute, Percutaneous Approach (ICD-10-PCS; 2017-10-19)
PROC: 0QB03ZX Excision of Lumbar Vertebra, Percutaneous Approach, Diagnostic (ICD-10-PCS; 2017-10-19)
PROC: 0QS03ZZ Reposition Lumbar Vertebra, Percutaneous Approach (ICD-10-PCS; principal; 2017-10-19 16:02)
DX: M80.88XA Other osteoporosis with current pathological fracture, vertebra(e), initial encounter for fracture (principal); N17.0 Acute kidney failure with tubular necrosis; A04.72 Enterocolitis due to Clostridium difficile, not specified as recurrent; E87.2 Acidosis; E86.0 Dehydration; I48.91 Unspecified atrial fibrillation; J44.9 Chronic obstructive pulmonary disease, unspecified; M48.061 Spinal stenosis, lumbar region without neurogenic claudication; D64.9 Anemia, unspecified; I12.9 Hypertensive chronic kidney disease with stage 1 through stage 4 chronic kidney disease, or unspecified chronic kidney disease; M48.56XA Collapsed vertebra, not elsewhere classified, lumbar region, initial encounter for fracture; M51.36 Other intervertebral disc degeneration, lumbar region; N18.9 Chronic kidney disease, unspecified; R32 Unspecified urinary incontinence; W17.89XA Other fall from one level to another, initial encounter; Z90.5 Acquired absence of kidney; Z90.710 Acquired absence of both cervix and uterus; Z88.0 Allergy status to penicillin; Z88.2 Allergy status to sulfonamides; Z79.899 Other long term (current) drug therapy; Z91.81 History of falling; Z85.528 Personal history of other malignant neoplasm of kidney; Z86.73 Personal history of transient ischemic attack (TIA), and cerebral infarction without residual deficits; Y93.89 Activity, other specified; Y92.89 Other specified places as the place of occurrence of the external cause; Y99.8 Other external cause status
CPT/HCPCS: 36415; 72100; 76000; 80048; 80053; 81001; 82272; 82607; 82728; 82746; 82784; 83540; 83550; 83690; 83735; 83970; 84100; 84132; 85025; 86334; 87070; 87088; 87324; 87449; 87493; 93005; 96360; 97110; 97116; 97162; 97530; 99285; A6255; A7000; J0171; J0690; J1100; J1644; J2795; J3010; J3370; J3475; J3490; J7030; J7120; P9045; Q9966; Q9967

== ENCOUNTER 2018-08-02 08:58 | Inpatient (IN) | payer MEDICARE, BC | END 2018-08-04 21:33 | disposition home or self-care (01) | LOC: ER 08:58 → ED HOLD 13:00 → SUR 3N 14:50 | DX: R31.0 Gross hematuria (principal); Z90.5 Acquired absence of kidney; N18.3 Chronic kidney disease, stage 3 (moderate); I12.9 Hypertensive chronic kidney disease with stage 1 through stage 4 chronic kidney disease, or unspecified chronic kidney disease; I25.10 Atherosclerotic heart disease of native coronary artery without angina pectoris; I48.91 Unspecified atrial fibrillation ==

== ENCOUNTER 2018-08-06 14:35 | Emergency (ER) | payer MEDICARE, BC ==
[~2018-08-06] VITALS: Ht 154.9 cm; Wt 65.9 kg
[~2018-08-06 14:35] MED LIST changes: +ACID1TAB2 PO; +ALLO100T PO; +CHOL400T PO; +CHOL4PAC2 PO; +CIPR-230 PO; +DOCU-267 PO; +DRON400T2 PO; +ERGO500041 PO; +FAMO20TA8 PO; +FOLI1TAB16 PO; -HYDR-3965 PO; +LEVO50TA8 PO; +LISI-600 PO; +MODA100T31 PO; +NOR5T PO; +SERT50TA10 PO; +SODI650T29 PO; +TERI2.4P SUBCUT; +TRAM50TA2 PO
[2018-08-06] MEDS ORDERED: TRAM50TA2 PO (15:11)
[2018-08-06] MEDS ORDERED: bacitracin 15gm ointment TP ONE (16:30)
[2018-08-06 16:41] VITALS: BP 165/74
== END 2018-08-06 16:43 | disposition home or self-care (01) ==
LOC: ER 14:36
DX: S61.412A Laceration without foreign body of left hand, initial encounter (principal); S60.211A Contusion of right wrist, initial encounter; S90.111A Contusion of right great toe without damage to nail, initial encounter; I48.91 Unspecified atrial fibrillation; I10 Essential (primary) hypertension; J44.9 Chronic obstructive pulmonary disease, unspecified; Z86.718 Personal history of other venous thrombosis and embolism; Z86.73 Personal history of transient ischemic attack (TIA), and cerebral infarction without residual deficits; Z88.0 Allergy status to penicillin; Z88.2 Allergy status to sulfonamides; Z79.899 Other long term (current) drug therapy; Z98.890 Other specified postprocedural states; W18.39XA Other fall on same level, initial encounter; Y93.89 Activity, other specified; Y92.89 Other specified places as the place of occurrence of the external cause; Y99.8 Other external cause status
CPT/HCPCS: 12002; 73110; 73130; 73630; 88108; 99284

== ENCOUNTER 2019-02-26 06:12 | Inpatient (IN) | payer MEDICARE, BC ==
[~2019-02-26] VITALS: Ht 154.9 cm; Wt 68.0 kg
[~2019-02-26 06:12] MED LIST changes: -CIPR-230 PO
[2019-02-26 07:26] LABS: BASOPHILS % (AUTO) 0.7 % (0-1); EOSINOPHILS # (AUTO) 0.1 X10'3 (0-0.9); EOSINOPHILS % (AUTO) 1.3 % (0-6); HEMATOCRIT 33.7 % (35.0-45.0); HEMOGLOBIN 11.2 g/dl (12.0-16.0); LYMPHOCYTES % (AUTO) 16.6 % (21-51); MEAN CORPUSCULAR HEMOGLOBIN 27.9 PG (27.0-31.0); MEAN CORPUSCULAR HGB CONC 33.1 g/dL (33.0-36.5); MEAN CORPUSCULAR VOLUME 84.1 FL (78-98); MEAN PLATELET VOLUME 7.4 FL (7.4-10.4); MONOCYTES # (AUTO) 0.6 X10'3 (0-0.9); MONOCYTES % (AUTO) 10.6 % (2-12); NEUTROPHILS # (AUTO) 4.1 X10'3 (1.8-7.7); NEUTROPHILS % (AUTO) 70.8 % (42-75); PLATELET COUNT 134 X10'3 (140-440); RED BLOOD COUNT 4.01 X10'6 (4.20-5.60); RED CELL DISTRIBUTION WIDTH 15.1 % (11.5-14.5); WHITE BLOOD COUNT 5.8 X10'3 (4.5-11.0)
[2019-02-26 07:39] LABS: ALANINE AMINOTRANSFERASE 8 U/L (12-78); ALBUMIN 3.3 G/DL (3.4-5.0); ALKALINE PHOSPHATASE 106 IU/L (46-116); ANION GAP 8 (8-16); ASPARTATE AMINO TRANSFERASE 16 U/L (10-37); BILIRUBIN,TOTAL 0.5 MG/DL (0.1-1.0); BLOOD UREA NITROGEN 20 MG/DL (7-18); BUN/CREATININE RATIO 14.4 (6.6-38.0); CALCIUM 8.5 MG/DL (8.5-10.1); CHLORIDE 110 MMOL/L (99-107); CREATININE 1.39 MG/DL (0.40-0.90); GLUCOSE 82 MG/DL (70-104); POTASSIUM 3.1 MMOL/L (3.5-5.1); SODIUM 144 MMOL/L (135-145); TOTAL CARBON DIOXIDE 26.4 MMOL/L (24-32); TOTAL PROTEIN 6.7 G/DL (6.4-8.2); eGFR 37 ML/MIN
[2019-02-26 07:59] LABS: PARTIAL THROMBOPLASTIN TIME 32 SECONDS (22-32)
[2019-02-26] MEDS ORDERED: heparin 25,000 UNIT/250ml bag 250 ML IV SCH (08:19)
[2019-02-26] MEDS ORDERED: heparin 10,000 units/1 ML INJ IV PRN (08:20)
[2019-02-26] MEDS ORDERED: heparin 10,000 units/1 ML INJ IV ONE ×2 (08:20→08:25)
[2019-02-26 08:38] LABS: CLARITY,URINE SLIGHTLY CLOUDY (Clear); COLOR,URINE YELLOW (Yellow); GLUCOSE, URINE NEGATIVE (Neg); KETONES,URINE NEGATIVE (Neg); LEUKOCYTE ESTERASE ,URINE SMALL (Neg); NITRITES, URINE NEGATIVE (Neg); OCCULT BLOOD,URINE TRACE-INTACT (Neg); PROTEIN,URINE 100 mg/dl (Neg); UROBILINOGEN,URINE 0.2 E.U/dL (0.2-1.0)
[2019-02-26 08:46] LABS: UA COLLECTION TYPE CLN CATCH MIDSTREAM
[2019-02-26 08:51] LABS: BACTERIA,URINE FEW /HPF (Neg); MUCUS STRANDS FEW /LPF (Neg); RBC,URINE 0-2 /HPF (0-2); SQUAMOUS EPITHELIAL CELL,UR MODERATE /LPF (FEW); WBC,URINE 30-50 /HPF (0-4)
[2019-02-26 08:52] LABS: WBC CLUMPS,URINE FEW /HPF (NEGATIVE)
[2019-02-26] MEDS: K and/or MAG REPLACEMENT MC SCH (09:15)
[2019-02-26] MEDS ORDERED: ondansetron/PF 4mg/2ml inj IV PRN (09:15)
[2019-02-26] MEDS ORDERED: potassium CL 10mEq/100ml bag 100 ML IV PRN ×2 (09:15)
[2019-02-26] MEDS ORDERED: potassium Cl 20 mEq SR tablet PO PRN (09:15)
[2019-02-26] MEDS ORDERED: magnesium hydroxide 30ml (MOM) UD suspension PO PRN (09:15)
[2019-02-26] MEDS ORDERED: morphine 2 MG/ML inj. syringe IV PRN ×2 (09:15)
[2019-02-26] MEDS ORDERED: magnesium 4gm in 100ml NS 100 ML IV PRN (09:15)
[2019-02-26] MEDS ORDERED: magnesium 2GM in 50ml NS 50 ML IV PRN (09:15)
[2019-02-26] MEDS ORDERED: bisacodyl 10mg suppository rectal RC PRN (09:15)
[2019-02-26] MEDS ORDERED: diphenhydrAMINE 25mg capsule PO PRN (09:15)
[2019-02-26] MEDS ORDERED: acetaminophen 325mg tablet PO PRN (09:15)
[2019-02-26] MEDS ORDERED: acetaminophen 650mg rectal suppository RC PRN (09:15)
[2019-02-26] MEDS ORDERED: mag hydrox/Alum hydrox/simeth 30ml oral suspension PO PRN (09:15)
[2019-02-26] MEDS ORDERED: HYDROcodone/acetaminophen 5mg/325mg tablet PO PRN (09:15)
[2019-02-26] MEDS ORDERED: magnesium Cl slow-release 64mg tablet PO PRN (09:15)
[2019-02-26] MEDS ORDERED: HYDROcodone/acetaminophen 10/325mg tab PO PRN (09:15)
[2019-02-26 09:48] LABS: HEMOGLOBIN A1C 5.4 % (4.5-6.2)
[2019-02-26] MEDS: normal saline 1000ml 1,000 ML IV SCH ×2 (10:25→19:58)
[2019-02-26] MEDS: potassium Cl 20 mEq SR tablet PO PRN ×3 (10:30→21:42)
--- NOTE | 2019-02-26 10:31 | NUR ---
Break RN; Pt resting comfortably on gurney. Pt NS started at 100ml/hr, 20meq potassium given. Hospitalist at bedside, daughter at bedside to answer questions.
--- NOTE | 2019-02-26 11:01 | NUR ---
Received report from Sofia MCNAIR; patient will be admitted to room 3020.
--- NOTE | 2019-02-26 11:10 | NUR ---
Pt admitted to room 3020. Tele monitor applied, patient oriented to room. Stable, no complaints. Call light in reach. 2 RN skin check performed.
[2019-02-26 11:15] VITALS: BP 197/101
[2019-02-26] MEDS ORDERED: hydrALAZINE 20mg/ml inj. IV PRN (11:55)
[2019-02-26] MEDS ORDERED: amLODIPine 5mg tablet PO ONE (11:55)
[2019-02-26] MEDS ORDERED: lisinopril 10 MG tablet PO ONE (11:55)
[2019-02-26 13:50] VITALS: BP 148/86
[2019-02-26 15:00] VITALS: BP 145/91
[2019-02-26 16:20] LABS: PARTIAL THROMBOPLASTIN TIME 122 SECONDS (22-32)
--- NOTE | 2019-02-26 16:24 | NUR ---
Received critical from lab, PTT 122. Paged Dr Queen to make aware. Will hold infusion for 120 minutes per protocol. PAGER ID: [phone] MESSAGE: Denisse Ramirez1. Edna Sutton. Lab reported critical PTT 122. Will shut off drip for 120 minutes per protocol.
--- NOTE | 2019-02-26 16:47 | NUR ---
Paged hospitalist, Dr. Queen. PAGER ID: [phone] MESSAGE: Marie jono [phone]. RE Edna Fischer0. Pt has redness to groin, can I have order for nystatin powder please? Thank you!
--- NOTE | 2019-02-26 17:13 | NUR ---
Problems reprioritized. Patient report given, questions answered & plan of care reviewed with Jer MCNAIR.
--- NOTE | 2019-02-26 17:29 | NUR ---
Patient in room PCU 3020. I have received report from TABBY Salcedo and had the opportunity to ask questions and assume patient care.
--- NOTE | 2019-02-26 17:57 | NUR ---
Problems reprioritized. Patient report given, questions answered & plan of care reviewed with Jer MCNAIR.
[2019-02-26 19:00] VITALS: BP 148/84
[2019-02-26] MEDS: CefTRIAXone/D5W-Rocephin 1gm 50 ML IV SCH (19:00)
--- NOTE | 2019-02-26 19:03 | NUR ---
1725 rocephin late admin due to no IV access. ABx infusing into 22G right AC per provider order. Will continue to monitor closely.
[2019-02-26] MEDS: dronedarone hcl 400mg tablet PO SCH (19:55)
[2019-02-26] MEDS: famotidine 20mg tablet PO SCH (19:56)
[2019-02-26] MEDS ORDERED: PECTIN CITRUS PO SCH (20:00)
[2019-02-26] MEDS ORDERED: ACIDOPHILUS PO SCH (20:00)
[2019-02-26] MEDS ORDERED: warfarin 5mg tablet PO ONE (21:00)
[2019-02-26] MEDS ORDERED: TERIPARATIDE 20 MCG SUBCUT SCH (21:00)
[2019-02-26] MEDS ORDERED: temazepam 15mg capsule PO PRN (21:00)
[2019-02-26] MEDS: nystatin 15 GM powder TP SCH (21:41)
[2019-02-26] MEDS: acetaminophen 325mg tablet PO PRN (21:42)
[2019-02-26 23:00] VITALS: BP 131/83
--- NOTE | 2019-02-26 23:42 | NUR ---
DVT PTT 52 at 2230. Heparin infusing at 900 units/hr per protocol and provider order. No changes at this time. Next DVT PTT to be drawn at 0430. Will continue to monitor closely.
[2019-02-27] MEDS: normal saline 1000ml 1,000 ML IV SCH (05:27)
--- NOTE | 2019-02-27 05:29 | NUR ---
0430 DVT PTT 68. Heparin gtt infusing at 900 units/hr per provider order. Next DVT PTT to be drawn at 1030. Will continue to monitor closely.
--- NOTE | 2019-02-27 05:49 | NUR ---
Lab notified patient has false critical high Magnesium 1.0 and potassium 2.8. Instructed to redraw jensen.
[2019-02-27 06:00] VITALS: BP 160/82
[2019-02-27] MEDS ORDERED: levoTHYROXINE 25mcg tablet PO SCH (07:00)
[2019-02-27 07:48] LABS: ALANINE AMINOTRANSFERASE 6 U/L (12-78); ALBUMIN 3.1 G/DL (3.4-5.0); ALBUMIN/GLOBULIN RATIO 0.9 (1.1-1.5); ALKALINE PHOSPHATASE 102 IU/L (46-116); ANION GAP 8 (8-16); ASPARTATE AMINO TRANSFERASE 12 U/L (10-37); BILIRUBIN,TOTAL 0.3 MG/DL (0.1-1.0); BLOOD UREA NITROGEN 15 MG/DL (7-18); BUN/CREATININE RATIO 12.7 (6.6-38.0); CALCIUM 8.5 MG/DL (8.5-10.1); CHLORIDE 114 MMOL/L (99-107); CHOL/HDL RATIO 3.6 (0.00-4.99); CHOLESTEROL 147 MG/DL (0-200); CREATININE 1.18 MG/DL (0.40-0.90); GLUCOSE 74 MG/DL (70-104); HDL CHOLESTEROL 41 MG/DL (35-60); LDL CHOLESTEROL 94 MG/DL (50-100); MAGNESIUM 1.4 MG/DL (1.5-2.4); PHOSPHORUS 2.8 MG/DL (2.3-4.5); POTASSIUM 3.8 MMOL/L (3.5-5.1); SODIUM 146 MMOL/L (135-145); TOTAL CARBON DIOXIDE 24.5 MMOL/L (24-32); TOTAL PROTEIN 6.5 G/DL (6.4-8.2); TRIGLYCERIDES 92 MG/DL (20-135); eGFR 44 ML/MIN
[2019-02-27] MEDS ORDERED: sertraline 50mg tablet PO SCH (08:00)
[2019-02-27] MEDS ORDERED: allopurinol 100mg tablet PO SCH (08:00)
[2019-02-27] MEDS ORDERED: lisinopril 20mg tablet PO SCH (08:00)
[2019-02-27] MEDS: CefTRIAXone/D5W-Rocephin 1gm 50 ML IV SCH (08:00)
[2019-02-27] MEDS: K and/or MAG REPLACEMENT MC SCH (08:00)
[2019-02-27] MEDS ORDERED: folic acid 1mg tablet PO SCH (08:00)
[2019-02-27] MEDS ORDERED: amLODIPine 5mg tablet PO SCH (08:00)
[2019-02-27] MEDS ORDERED: cholecalciferol (vitamin D) 400 unit tablet PO SCH (08:00)
[2019-02-27 08:19] LABS: BASOPHILS % (AUTO) 0.6 % (0-1); EOSINOPHILS # (AUTO) 0.1 X10'3 (0-0.9); EOSINOPHILS % (AUTO) 1.5 % (0-6); HEMATOCRIT 35.9 % (35.0-45.0); HEMOGLOBIN 11.8 g/dl (12.0-16.0); LYMPHOCYTES # (AUTO) 1.3 X10'3 (1.1-4.8); LYMPHOCYTES % (AUTO) 24.9 % (21-51); MEAN CORPUSCULAR HEMOGLOBIN 28.1 PG (27.0-31.0); MEAN CORPUSCULAR VOLUME 85.2 FL (78-98); MONOCYTES # (AUTO) 0.6 X10'3 (0-0.9); MONOCYTES % (AUTO) 10.7 % (2-12); NEUTROPHILS # (AUTO) 3.2 X10'3 (1.8-7.7); NEUTROPHILS % (AUTO) 62.3 % (42-75); PLATELET COUNT 117 X10'3 (140-440); RED BLOOD COUNT 4.21 X10'6 (4.20-5.60); RED CELL DISTRIBUTION WIDTH 15.4 % (11.5-14.5); WHITE BLOOD COUNT 5.1 X10'3 (4.5-11.0)
[2019-02-27] MEDS: dronedarone hcl 400mg tablet PO SCH (08:29)
[2019-02-27] MEDS: famotidine 20mg tablet PO SCH (08:29)
[2019-02-27] MEDS: nystatin 15 GM powder TP SCH (08:30)
[2019-02-27] MEDS: acetaminophen 325mg tablet PO PRN (08:30)
--- NOTE | 2019-02-27 08:30 | NUR ---
Entered room to give medications and heparin drip was turned off where 1 hour previously it had been running at 900units/hr, restarted drip, previous PTT at 0630 was therapeutic. Unknown how long heparin was off.
[2019-02-27] MEDS ORDERED: NOR5T PO (09:09)
[2019-02-27] MEDS ORDERED: ENOX60SY7 SQ (09:09)
[2019-02-27] MEDS ORDERED: LISI-600 PO (09:09)
[2019-02-27] MEDS ORDERED: WARF-55 PO (09:09)
[2019-02-27] MEDS ORDERED: CEFD300C3 PO (10:44)
[2019-02-27] MEDS ORDERED: enoxaparin 40mg/0.4ml syringe SUBCUT ONE (10:45)
[2019-02-27] MEDS ORDERED: enoxaparin 30mg/0.3ml syringe SUBCUT ONE (10:50)
[2019-02-27 11:00] VITALS: BP 134/79
--- NOTE | 2019-02-27 11:35 | NUR ---
spoke with Nikki, patient's daughter, she is working until [facility] but will try to arrange a ride and will call back shortly
--- NOTE | 2019-02-27 12:30 | NUR ---
received orders for patient discharge, patient educated on discharge orders including new medications, family member present, understanding verbalized, patient will schedule follow up Dr. sifuentes and will get labs as instructed in discharge instructions. Removed IVs, catheter tips intact, hemostasis achieved, telemetry removed, wrist bands removed, patient transported to vehicle by auxiliary, patient stable at time of discharge.
[2019-03-05] MEDS ORDERED: ergocalciferol (Vitamin D) 50,000 unit capsule PO SCH (09:10)
== END 2019-02-27 12:45 | disposition home or self-care (01) | DRG 301 ==
LOC: ER 06:13 → ED HOLD 09:13 → PCU 3S 11:10
PROVIDERS: ADMIT Family Medicine; ATTEND Family Medicine
DX: I82.432 Acute embolism and thrombosis of left popliteal vein (principal); E03.9 Hypothyroidism, unspecified; E78.5 Hyperlipidemia, unspecified; F03.90 Unspecified dementia, unspecified severity, without behavioral disturbance, psychotic disturbance, mood disturbance, and anxiety; F32.9 Major depressive disorder, single episode, unspecified; F41.9 Anxiety disorder, unspecified; I10 Essential (primary) hypertension; I25.10 Atherosclerotic heart disease of native coronary artery without angina pectoris; I48.0 Paroxysmal atrial fibrillation; I82.502 Chronic embolism and thrombosis of unspecified deep veins of left lower extremity; I82.522 Chronic embolism and thrombosis of left iliac vein; I82.422 Acute embolism and thrombosis of left iliac vein; I82.532 Chronic embolism and thrombosis of left popliteal vein; I82.512 Chronic embolism and thrombosis of left femoral vein; I82.412 Acute embolism and thrombosis of left femoral vein; J44.9 Chronic obstructive pulmonary disease, unspecified; M10.9 Gout, unspecified; Z79.890 Hormone replacement therapy; Z88.0 Allergy status to penicillin; Z88.2 Allergy status to sulfonamides; Z79.899 Other long term (current) drug therapy; Z80.1 Family history of malignant neoplasm of trachea, bronchus and lung; Z82.0 Family history of epilepsy and other diseases of the nervous system; Z80.3 Family history of malignant neoplasm of breast; Z85.528 Personal history of other malignant neoplasm of kidney; Z85.828 Personal history of other malignant neoplasm of skin; Z86.711 Personal history of pulmonary embolism; Z86.72 Personal history of thrombophlebitis; Z86.73 Personal history of transient ischemic attack (TIA), and cerebral infarction without residual deficits; Z90.5 Acquired absence of kidney; Z90.710 Acquired absence of both cervix and uterus; Z79.01 Long term (current) use of anticoagulants
CPT/HCPCS: 36415; 71045; 80053; 80061; 81001; 83036; 83605; 83735; 84100; 84145; 84443; 85025; 85610; 85730; 87081; 87088; 93971; 96365; 96376; 99285; G0378; J0360; J0696; J1644; J1650; J7030; Q0163

== ENCOUNTER 2019-03-02 11:18 | Inpatient (IN) | payer MEDICARE, BC ==
[~2019-03-02] VITALS: Ht 154.9 cm; Wt 70.0 kg
[~2019-03-02 11:18] MED LIST changes: +CEFD300C3 PO; +ENOX60SY7 SQ; +WARF-55 PO
[2019-03-02 11:45] LABS: CLARITY,URINE CLEAR (Clear); COLOR,URINE YELLOW (Yellow); GLUCOSE, URINE NEGATIVE (Neg); KETONES,URINE NEGATIVE (Neg); LEUKOCYTE ESTERASE ,URINE TRACE (Neg); NITRITES, URINE NEGATIVE (Neg); OCCULT BLOOD,URINE TRACE-INTACT (Neg); PROTEIN,URINE 30 mg/dl (Neg); UROBILINOGEN,URINE 0.2 E.U/dL (0.2-1.0)
[2019-03-02 11:47] LABS: UA COLLECTION TYPE VOIDED
[2019-03-02 11:51] LABS: RBC,URINE 0-2 /HPF (0-2)
[2019-03-02 11:52] LABS: BACTERIA,URINE 1+ /HPF (Neg); MUCUS STRANDS NONE SEEN /LPF (Neg); SQUAMOUS EPITHELIAL CELL,UR FEW /LPF (FEW)
[2019-03-02 12:00] LABS: BASOPHILS % (AUTO) 0.8 % (0-1); EOSINOPHILS # (AUTO) 0.1 X10'3 (0-0.9); EOSINOPHILS % (AUTO) 1.1 % (0-6); HEMATOCRIT 34.6 % (35.0-45.0); HEMOGLOBIN 11.4 g/dl (12.0-16.0); LYMPHOCYTES # (AUTO) 0.9 X10'3 (1.1-4.8); LYMPHOCYTES % (AUTO) 16.9 % (21-51); MEAN CORPUSCULAR HGB CONC 32.9 g/dL (33.0-36.5); MEAN CORPUSCULAR VOLUME 84.9 FL (78-98); MEAN PLATELET VOLUME 7.6 FL (7.4-10.4); MONOCYTES # (AUTO) 0.4 X10'3 (0-0.9); MONOCYTES % (AUTO) 8.6 % (2-12); NEUTROPHILS # (AUTO) 3.8 X10'3 (1.8-7.7); NEUTROPHILS % (AUTO) 72.6 % (42-75); PLATELET COUNT 146 X10'3 (140-440); RED BLOOD COUNT 4.08 X10'6 (4.20-5.60); RED CELL DISTRIBUTION WIDTH 15.7 % (11.5-14.5); WHITE BLOOD COUNT 5.2 X10'3 (4.5-11.0)
[2019-03-02 12:09] LABS: ALANINE AMINOTRANSFERASE 12 U/L (12-78); ALBUMIN 3.4 G/DL (3.4-5.0); ALBUMIN/GLOBULIN RATIO 0.9 (1.1-1.5); ALKALINE PHOSPHATASE 102 IU/L (46-116); ANION GAP 9 (8-16); ASPARTATE AMINO TRANSFERASE 26 U/L (10-37); BILIRUBIN,TOTAL 0.3 MG/DL (0.1-1.0); BLOOD UREA NITROGEN 28 MG/DL (7-18); BUN/CREATININE RATIO 22.8 (6.6-38.0); CHLORIDE 111 MMOL/L (99-107); CREATININE 1.23 MG/DL (0.40-0.90); GLUCOSE 86 MG/DL (70-104); POTASSIUM 4.5 MMOL/L (3.5-5.1); SODIUM 144 MMOL/L (135-145); TOTAL CARBON DIOXIDE 24.5 MMOL/L (24-32); eGFR 42 ML/MIN
[2019-03-02] MEDS ORDERED: pantoprazole 40 MG vial IV ONE (12:35)
--- NOTE | 2019-03-02 12:48 | NUR ---
Received call from GI lab re scheduling for endoscopy tomorrow 03/03/19 at 0900. Per GI lab nurse, pt. to be off anticoags from this point and to be NPO after midnight.
[2019-03-02] MEDS ORDERED: phytonadione inj. 3 MG in normal saline 100ml IV soln 99.7 ML IV ONE (13:05)
--- NOTE | 2019-03-02 13:18 | NUR ---
called pharmacy and stated making aqua mephyton now. will be ready in 5 min.
[2019-03-02 13:19] LABS: OCCULT BLOOD STOOL POSITIVE (Neg)
[2019-03-02] MEDS ORDERED: potassium Cl 20 mEq SR tablet PO PRN ×2 (13:20)
[2019-03-02] MEDS ORDERED: acetaminophen 325mg tablet PO PRN ×2 (13:20)
[2019-03-02] MEDS ORDERED: HYDROcodone/acetaminophen 5mg/325mg tablet PO PRN (13:20)
[2019-03-02] MEDS ORDERED: magnesium 4gm in 100ml NS 100 ML IV PRN (13:20)
[2019-03-02] MEDS ORDERED: potassium CL 10mEq/100ml bag 100 ML IV PRN ×2 (13:20)
[2019-03-02] MEDS ORDERED: morphine 2 MG/ML inj. syringe IV PRN (13:20)
[2019-03-02] MEDS ORDERED: magnesium 2GM in 50ml NS 50 ML IV PRN (13:20)
[2019-03-02] MEDS ORDERED: ondansetron/PF 4mg/2ml inj IV PRN (13:20)
[2019-03-02] MEDS ORDERED: magnesium Cl slow-release 64mg tablet PO PRN (13:20)
[2019-03-02] MEDS: normal saline 1000ml 1,000 ML IV SCH (15:48)
--- NOTE | 2019-03-02 16:00 | NUR ---
Received pt report from Yue MCNAIR.
[2019-03-02 16:15] VITALS: BP 173/82
--- NOTE | 2019-03-02 16:21 | NUR ---
Report given to Melody MCNAIR, she will assume pt care. Daughter states pt is limited code, i have relayed this to melody and she will f/u with Dr Walker regarding this.
[2019-03-02 16:26] VITALS: BP 154/92
[2019-03-02] MEDS: levoTHYROXINE 25mcg tablet PO SCH (16:55)
--- NOTE | 2019-03-02 18:34 | NUR ---
Problems reprioritized. Patient report given, questions answered & plan of care reviewed with MEENU MCNAIR.
[2019-03-02 19:00] VITALS: BP 130/80
--- NOTE | 2019-03-02 19:00 | NUR ---
Patient in room GABRIELLE 352. I have received report from day shift RN and had the opportunity to ask questions and assume patient care. Addendum: 03/03/19 at 0516 by Val Deutsch RN Amended: Links added.
[2019-03-02] MEDS: dronedarone hcl 400mg tablet PO SCH (20:04)
[2019-03-02] MEDS: famotidine 20mg tablet PO SCH (20:05)
[2019-03-02] MEDS ORDERED: temazepam 15mg capsule PO PRN (21:00)
[2019-03-03] VITALS (7 sets, daily range): BP systolic 138–156; BP diastolic 80–110
[2019-03-03] MEDS: normal saline 1000ml 1,000 ML IV SCH (01:58)
[2019-03-03 05:45] LABS: BASOPHILS % (AUTO) 0.6 % (0-1); EOSINOPHILS # (AUTO) 0.1 X10'3 (0-0.9); EOSINOPHILS % (AUTO) 1.8 % (0-6); HEMATOCRIT 28.9 % (35.0-45.0); HEMOGLOBIN 9.5 g/dl (12.0-16.0); LYMPHOCYTES # (AUTO) 0.9 X10'3 (1.1-4.8); LYMPHOCYTES % (AUTO) 26.5 % (21-51); MEAN CORPUSCULAR HEMOGLOBIN 27.9 PG (27.0-31.0); MEAN CORPUSCULAR VOLUME 84.6 FL (78-98); MEAN PLATELET VOLUME 7.8 FL (7.4-10.4); MONOCYTES # (AUTO) 0.3 X10'3 (0-0.9); MONOCYTES % (AUTO) 9.8 % (2-12); NEUTROPHILS % (AUTO) 61.3 % (42-75); PLATELET COUNT 118 X10'3 (140-440); RED BLOOD COUNT 3.41 X10'6 (4.20-5.60); RED CELL DISTRIBUTION WIDTH 15.7 % (11.5-14.5); WHITE BLOOD COUNT 3.2 X10'3 (4.5-11.0)
--- NOTE | 2019-03-03 06:00 | NUR ---
Problems reprioritized. Patient report given, questions answered & plan of care reviewed with Emmanuelel MCNAIR. Addendum: 03/03/19 at 0646 by Val Deutsch RN Amended: Links added.
[2019-03-03 06:35] LABS: ALBUMIN 2.7 G/DL (3.4-5.0); ANION GAP 12 (8-16); BLOOD UREA NITROGEN 22 MG/DL (7-18); CALCIUM 8.3 MG/DL (8.5-10.1); CHLORIDE 115 MMOL/L (99-107); CREATININE 1.05 MG/DL (0.40-0.90); GLUCOSE 75 MG/DL (70-104); MAGNESIUM 1.5 MG/DL (1.5-2.4); POTASSIUM 3.6 MMOL/L (3.5-5.1); SODIUM 148 MMOL/L (135-145); TOTAL CARBON DIOXIDE 21.4 MMOL/L (24-32); eGFR 51 ML/MIN
[2019-03-03] MEDS: levoTHYROXINE 25mcg tablet PO SCH (07:27)
[2019-03-03] MEDS: famotidine 20mg tablet PO SCH (07:28)
[2019-03-03] MEDS: dronedarone hcl 400mg tablet PO SCH (07:41)
[2019-03-03] MEDS ORDERED: K and/or MAG REPLACEMENT MC SCH (08:00)
[2019-03-03] MEDS ORDERED: amLODIPine 5mg tablet PO SCH (08:00)
[2019-03-03] MEDS ORDERED: allopurinol 100mg tablet PO SCH (08:00)
[2019-03-03] MEDS ORDERED: sertraline 50mg tablet PO SCH (08:00)
[2019-03-03] MEDS ORDERED: lisinopril 20mg tablet PO SCH (08:00)
[2019-03-03] MEDS ORDERED: MIDAZolam 5mg/5ml vial ONE (08:40)
[2019-03-03] MEDS ORDERED: fentaNYL/PF 50MCG/1 ML 2ML syringe ONE (08:40)
[2019-03-03] MEDS ORDERED: LIDOcaine Viscous 15ml cup ONE (08:40)
--- NOTE | 2019-03-03 10:45 | NUR ---
Student documentation: I have reviewed and agree with all interventions, assessments performed and documented by SN Tanja.
[2019-03-03 13:57] LABS: BASOPHILS % (AUTO) 0.7 % (0-1); EOSINOPHILS # (AUTO) 0.1 X10'3 (0-0.9); EOSINOPHILS % (AUTO) 1.5 % (0-6); HEMATOCRIT 31.3 % (35.0-45.0); HEMOGLOBIN 10.3 g/dl (12.0-16.0); LYMPHOCYTES # (AUTO) 0.7 X10'3 (1.1-4.8); LYMPHOCYTES % (AUTO) 21.1 % (21-51); MEAN CORPUSCULAR HEMOGLOBIN 28.1 PG (27.0-31.0); MEAN CORPUSCULAR HGB CONC 32.9 g/dL (33.0-36.5); MEAN CORPUSCULAR VOLUME 85.5 FL (78-98); MEAN PLATELET VOLUME 7.3 FL (7.4-10.4); MONOCYTES # (AUTO) 0.3 X10'3 (0-0.9); MONOCYTES % (AUTO) 8.8 % (2-12); NEUTROPHILS # (AUTO) 2.3 X10'3 (1.8-7.7); NEUTROPHILS % (AUTO) 67.9 % (42-75); PLATELET COUNT 121 X10'3 (140-440); RED BLOOD COUNT 3.67 X10'6 (4.20-5.60); RED CELL DISTRIBUTION WIDTH 15.9 % (11.5-14.5); WHITE BLOOD COUNT 3.4 X10'3 (4.5-11.0)
[2019-03-03] MEDS ORDERED: PANT40TA4 PO (14:12)
--- NOTE | 2019-03-03 15:15 | NUR ---
Patient discharged home with daughter stable and appropriate. IV removed, lead carpenter removed. All belongings taken from room. new prescription transmitted to [facility] pharmacy.
== END 2019-03-03 15:15 | disposition home or self-care (01) | DRG 378 ==
LOC: ER 11:18 → ED HOLD 13:33 → SUR 3N 14:45
PROVIDERS: ADMIT Internal Medicine; ATTEND Internal Medicine
PROC: 0DB68ZX Excision of Stomach, Via Natural or Artificial Opening Endoscopic, Diagnostic (ICD-10-PCS; principal; 2019-03-03)
DX: K25.4 Chronic or unspecified gastric ulcer with hemorrhage (principal); I48.20 Chronic atrial fibrillation, unspecified; D62 Acute posthemorrhagic anemia; Z79.890 Hormone replacement therapy; I12.9 Hypertensive chronic kidney disease with stage 1 through stage 4 chronic kidney disease, or unspecified chronic kidney disease; I25.10 Atherosclerotic heart disease of native coronary artery without angina pectoris; J44.9 Chronic obstructive pulmonary disease, unspecified; K31.9 Disease of stomach and duodenum, unspecified; K44.9 Diaphragmatic hernia without obstruction or gangrene; K31.89 Other diseases of stomach and duodenum; N18.3 Chronic kidney disease, stage 3 (moderate); R79.1 Abnormal coagulation profile; Z66 Do not resuscitate; Z79.01 Long term (current) use of anticoagulants; Z86.711 Personal history of pulmonary embolism; Z88.0 Allergy status to penicillin; Z88.2 Allergy status to sulfonamides; Z86.718 Personal history of other venous thrombosis and embolism; Z86.73 Personal history of transient ischemic attack (TIA), and cerebral infarction without residual deficits; Z90.5 Acquired absence of kidney
CPT/HCPCS: 36415; 43239; 80048; 80053; 81001; 82272; 83735; 85025; 85610; 86870; 86885; 86900; 86901; 86905; 87081; 87088; 88305; 88342; 96374; 99152; 99285; A4620; C9113; G0378; J2250; J3010; J3430; J7030; J7040

== ENCOUNTER 2019-04-13 13:10 | Emergency (ER) | payer MEDICARE, BC ==
[~2019-04-13] VITALS: Ht 154.9 cm; Wt 65.5 kg
[~2019-04-13 13:10] MED LIST changes: -CEFD300C3 PO; -CHOL4PAC2 PO; -DOCU-267 PO; -ENOX60SY7 SQ; -FAMO20TA8 PO; -MODA100T31 PO; +PANT40TA4 PO; -SODI650T29 PO; -TRAM50TA2 PO; -WARF-55 PO
[2019-04-13 14:03] LABS: BASOPHILS % (AUTO) 0.7 % (0-1); EOSINOPHILS # (AUTO) 0.1 X10'3 (0-0.9); EOSINOPHILS % (AUTO) 2.9 % (0-6); HEMOGLOBIN 9.2 g/dl (12.0-16.0); LYMPHOCYTES # (AUTO) 0.8 X10'3 (1.1-4.8); LYMPHOCYTES % (AUTO) 20.4 % (21-51); MEAN CORPUSCULAR HEMOGLOBIN 27.2 PG (27.0-31.0); MEAN CORPUSCULAR HGB CONC 32.9 g/dL (33.0-36.5); MEAN CORPUSCULAR VOLUME 82.6 FL (78-98); MEAN PLATELET VOLUME 7.2 FL (7.4-10.4); MONOCYTES # (AUTO) 0.4 X10'3 (0-0.9); MONOCYTES % (AUTO) 9.8 % (2-12); NEUTROPHILS # (AUTO) 2.5 X10'3 (1.8-7.7); NEUTROPHILS % (AUTO) 66.2 % (42-75); PLATELET COUNT 125 X10'3 (140-440); RED BLOOD COUNT 3.39 X10'6 (4.20-5.60); RED CELL DISTRIBUTION WIDTH 16.1 % (11.5-14.5); WHITE BLOOD COUNT 3.8 X10'3 (4.5-11.0)
[2019-04-13 14:17] LABS: ALANINE AMINOTRANSFERASE 14 U/L (12-78); ALBUMIN 3.2 G/DL (3.4-5.0); ALBUMIN/GLOBULIN RATIO 1.1 (1.1-1.5); ALKALINE PHOSPHATASE 91 IU/L (46-116); ASPARTATE AMINO TRANSFERASE 10 U/L (10-37); BILIRUBIN,TOTAL 0.3 MG/DL (0.1-1.0); BLOOD UREA NITROGEN 19 MG/DL (7-18); BUN/CREATININE RATIO 13.1 (6.6-38.0); CALCIUM 8.2 MG/DL (8.5-10.1); CHLORIDE 112 MMOL/L (99-107); CREATININE 1.45 MG/DL (0.40-0.90); GLUCOSE 64 MG/DL (70-104); POTASSIUM 3.9 MMOL/L (3.5-5.1); TOTAL CARBON DIOXIDE 25.7 MMOL/L (24-32); TOTAL PROTEIN 6.2 G/DL (6.4-8.2); eGFR 35 ML/MIN
[2019-04-13 14:22] LABS: ANION GAP 7 (8-16); SODIUM 145 MMOL/L (135-145)
--- NOTE | 2019-04-13 14:27 | NUR ---
LOWER LEGS REDDENED AND SWOLLEN. VERY WARM ALMOST HOT TO THE TOUCH, MILD TO MODERATE EDEMA, NON PITTING
[2019-04-13] MEDS ORDERED: aspirin 81mg tab.chew PO ONE (14:45)
[2019-04-13 14:49] LABS: CLARITY,URINE CLEAR (Clear); COLOR,URINE STRAW (Yellow); GLUCOSE, URINE NEGATIVE (Neg); KETONES,URINE NEGATIVE (Neg); LEUKOCYTE ESTERASE ,URINE SMALL (Neg); NITRITES, URINE NEGATIVE (Neg); OCCULT BLOOD,URINE TRACE-LYSED (Neg); PH,URINE 5.5 (4.8-8.0); PROTEIN,URINE TRACE mg/dl (Neg); UROBILINOGEN,URINE 0.2 E.U/dL (0.2-1.0)
[2019-04-13 14:51] LABS: UA COLLECTION TYPE STRAIGHT CATH
[2019-04-13 14:57] LABS: BACTERIA,URINE FEW /HPF (Neg); MUCUS STRANDS NONE SEEN /LPF (Neg); RBC,URINE 0-2 /HPF (0-2); SQUAMOUS EPITHELIAL CELL,UR FEW /LPF (FEW); WBC CLUMPS,URINE MODERATE /HPF (NEGATIVE); WBC,URINE 50-100 /HPF (0-4)
[2019-04-13 15:09] LABS: MAGNESIUM 1.3 MG/DL (1.5-2.4)
[2019-04-13] MEDS ORDERED: CefTRIAXone/D5W-Rocephin 1gm 50 ML IV SCH (16:05)
[2019-04-13] MEDS ORDERED: magnesium 2GM in 50ml NS 50 ML IV ONE (16:05)
[2019-04-13] MEDS ORDERED: CefTRIAXone/D5W-Rocephin 1gm 50 ML IV ONE (16:10)
[2019-04-13] MEDS ORDERED: NITR100C6 PO (17:27)
--- NOTE | 2019-04-13 17:39 | NUR ---
RELIEVING RN FOR LUNCH, PT IS RESTING QUIETLY ON GURNEY,
[2019-04-13 19:21] VITALS: BP 142/97
== END 2019-04-13 19:20 | disposition home or self-care (01) ==
LOC: ER 13:10
DX: N39.0 Urinary tract infection, site not specified (principal); R60.0 Localized edema; I48.91 Unspecified atrial fibrillation; I10 Essential (primary) hypertension; J44.9 Chronic obstructive pulmonary disease, unspecified; Z86.718 Personal history of other venous thrombosis and embolism; Z86.711 Personal history of pulmonary embolism; Z98.890 Other specified postprocedural states; Z90.5 Acquired absence of kidney; Z86.73 Personal history of transient ischemic attack (TIA), and cerebral infarction without residual deficits; Z88.2 Allergy status to sulfonamides; Z88.0 Allergy status to penicillin; Z79.899 Other long term (current) drug therapy
CPT/HCPCS: 36415; 71045; 80053; 81001; 83735; 85025; 85610; 87088; 93970; 96365; 96366; 96367; 99284; J0696; J3475; 96368

== ENCOUNTER 2019-10-14 14:56 | Emergency (ER) | payer MEDICARE, BC ==
[~2019-10-14] VITALS: Ht 154.9 cm; Wt 75.0 kg
[~2019-10-14 14:56] MED LIST changes: +NITR100C6 PO
[2019-10-14 15:07] VITALS: BP 133/83
[2019-10-14 15:47] LABS: BASOPHILS % (AUTO) 0.8 % (0-1); EOSINOPHILS # (AUTO) 0.1 X10'3 (0-0.9); EOSINOPHILS % (AUTO) 3.3 % (0-6); HEMATOCRIT 26.4 % (35.0-45.0); HEMOGLOBIN 8.1 g/dl (12.0-16.0); LYMPHOCYTES # (AUTO) 0.7 X10'3 (1.1-4.8); LYMPHOCYTES % (AUTO) 15.2 % (21-51); MEAN CORPUSCULAR HEMOGLOBIN 25.8 PG (27.0-31.0); MEAN CORPUSCULAR HGB CONC 30.8 g/dL (33.0-36.5); MEAN CORPUSCULAR VOLUME 83.8 FL (78-98); MONOCYTES # (AUTO) 0.4 X10'3 (0-0.9); NEUTROPHILS # (AUTO) 3.2 X10'3 (1.8-7.7); NEUTROPHILS % (AUTO) 71.7 % (42-75); PLATELET COUNT 202 X10'3 (140-440); RED BLOOD COUNT 3.15 X10'6 (4.20-5.60); RED CELL DISTRIBUTION WIDTH 16.6 % (11.5-14.5); WHITE BLOOD COUNT 4.4 X10'3 (4.5-11.0)
[2019-10-14 15:57] LABS: ALANINE AMINOTRANSFERASE 9 U/L (12-78); ALBUMIN 3.3 G/DL (3.4-5.0); ALKALINE PHOSPHATASE 94 IU/L (46-116); ANION GAP 14 (8-16); ASPARTATE AMINO TRANSFERASE 15 U/L (10-37); BILIRUBIN,TOTAL 0.4 MG/DL (0.1-1.0); BLOOD UREA NITROGEN 28 MG/DL (7-18); CALCIUM 8.6 MG/DL (8.5-10.1); CHLORIDE 116 MMOL/L (99-107); CREATININE 1.75 MG/DL (0.40-0.90); GLUCOSE 93 MG/DL (70-104); MAGNESIUM 1.8 MG/DL (1.5-2.4); PHOSPHORUS 3.5 MG/DL (2.3-4.5); POTASSIUM 5.1 MMOL/L (3.5-5.1); SODIUM 148 MMOL/L (135-145); TOTAL CARBON DIOXIDE 17.8 MMOL/L (24-32); TOTAL PROTEIN 6.6 G/DL (6.4-8.2); eGFR 28 ML/MIN
--- NOTE | 2019-10-14 16:22 | NUR ---
X ray completed. Daughter remains at bedside. US in at bedside.
--- NOTE | 2019-10-14 17:21 | NUR ---
Pt up to restroom with daughter. Unable to provide UA. No stool sample obtained.
[2019-10-14 18:08] LABS: CLARITY,URINE CLOUDY (Clear); COLOR,URINE YELLOW (Yellow); GLUCOSE, URINE NEGATIVE (Neg); KETONES,URINE NEGATIVE (Neg); LEUKOCYTE ESTERASE ,URINE MODERATE (Neg); NITRITES, URINE NEGATIVE (Neg); OCCULT BLOOD,URINE TRACE-INTACT (Neg); PROTEIN,URINE TRACE mg/dl (Neg); UROBILINOGEN,URINE 0.2 E.U/dL (0.2-1.0)
[2019-10-14 18:12] LABS: UA COLLECTION TYPE STRAIGHT CATH
[2019-10-14 18:34] LABS: BACTERIA,URINE 2+ /HPF (Neg); RBC,URINE 0-2 /HPF (0-2); RENAL CELLS, URINE FEW /HPF; SQUAMOUS EPITHELIAL CELL,UR FEW /LPF (FEW); TRANSITIONAL EPI CELLS,URINE MODERATE /HPF; WBC CLUMPS,URINE MODERATE /HPF (NEGATIVE); WBC,URINE 20-30 /HPF (0-4)
[2019-10-14 18:56] LABS: OCCULT BLOOD STOOL NEGATIVE (Neg)
[2019-10-14 19:15] LABS: OCCULT BLOOD STOOL NEGATIVE (Neg)
[2019-10-15 11:32] LABS: C DIFF ANTIGEN NEGATIVE (NEGATIVE); C DIFF SPECIMEN=DIARRHEA? ACCEPTABLE; C DIFFICILE TOXINS A&B NEGATIVE (Neg)
--- NOTE | 2019-10-19 09:43 | NUR ---
AT REQUEST OF DR WHITLEY CALLED AND SPOKE WITH PTS DAUGHTER RE URINE CXL RESULTS. SHE STATES PT IS ASYMPTOMATIC, BUT SHE DOES NOT USUALLY HAVE S/S WITH UTI. INFORMED DR WHITLEY, HE STATES ASYMPTOMATIC BACTERIA DOES NOT WARRENT TX. IF DEVELOPES SYMPTOMS, SEE PCP OR RETUN
== END 2019-10-14 17:57 | disposition home or self-care (01) ==
LOC: ER 14:57
DX: S80.11XA Contusion of right lower leg, initial encounter (principal); R19.7 Diarrhea, unspecified; D53.9 Nutritional anemia, unspecified; I48.91 Unspecified atrial fibrillation; I10 Essential (primary) hypertension; J44.9 Chronic obstructive pulmonary disease, unspecified; Z86.73 Personal history of transient ischemic attack (TIA), and cerebral infarction without residual deficits; Z86.711 Personal history of pulmonary embolism; Z86.718 Personal history of other venous thrombosis and embolism; Z85.9 Personal history of malignant neoplasm, unspecified; Z90.49 Acquired absence of other specified parts of digestive tract; Z98.890 Other specified postprocedural states; Z88.0 Allergy status to penicillin; Z88.2 Allergy status to sulfonamides; Z79.899 Other long term (current) drug therapy; W19.XXXA Unspecified fall, initial encounter; Y93.89 Activity, other specified; Y92.89 Other specified places as the place of occurrence of the external cause; Y99.8 Other external cause status
CPT/HCPCS: 36415; 73590; 80053; 81001; 82272; 83735; 84100; 85025; 87077; 87088; 87186; 87324; 87449; 93971; 99285

== ENCOUNTER 2020-11-26 10:52 | Day surgery (SDC) | payer MEDICARE, BC ==
[~2020-11-26 10:52] MED LIST changes: -ACID1TAB2 PO; +CALC500T11 PO; +CARV6.253 PO; +COLE1TAB2 PO; +DICY10CA88 PO; +DOXA2TAB46 PO; -DRON400T2 PO; +DRON400T7 PO; -ERGO500041 PO; +FURO40TA4 PO; +LEVO500T89 PO; -LISI-600 PO; +LOPE2CAP PO; +LOSA50TA64 PO; +MODA100T31 PO; +MUPI22OI30 TP; +NEO/5DRO7 RIGHTEYE; -NITR100C6 PO; -NOR5T PO; +NYSPWD TP; -PANT40TA4 PO; +PREVCR VG; +SERT-433 PO; -SERT50TA10 PO; -TERI2.4P SUBCUT
[2020-11-26 12:50] LABS: BASOPHILS % (AUTO) 0.7 % (0-1); EOSINOPHILS # (AUTO) 0.1 X10'3 (0-0.9); EOSINOPHILS % (AUTO) 2.6 % (0-6); HEMOGLOBIN 10.1 g/dl (12.0-16.0); LYMPHOCYTES # (AUTO) 0.6 X10'3 (1.1-4.8); LYMPHOCYTES % (AUTO) 18.1 % (21-51); MEAN CORPUSCULAR HEMOGLOBIN 28.7 PG (27.0-31.0); MEAN CORPUSCULAR HGB CONC 32.6 g/dL (33.0-36.5); MEAN CORPUSCULAR VOLUME 87.9 FL (78-98); MEAN PLATELET VOLUME 8.3 FL (7.4-10.4); MONOCYTES # (AUTO) 0.3 X10'3 (0-0.9); NEUTROPHILS # (AUTO) 2.4 X10'3 (1.8-7.7); NEUTROPHILS % (AUTO) 70.6 % (42-75); PLATELET COUNT 108 X10'3 (140-440); RED BLOOD COUNT 3.52 X10'6 (4.20-5.60); RED CELL DISTRIBUTION WIDTH 15.8 % (11.5-14.5); WHITE BLOOD COUNT 3.4 X10'3 (4.5-11.0)
[2020-11-26 13:10] LABS: ALANINE AMINOTRANSFERASE 7 U/L (12-78); ALBUMIN 3.1 G/DL (3.4-5.0); ALKALINE PHOSPHATASE 76 IU/L (46-116); ANION GAP 11 (8-16); ASPARTATE AMINO TRANSFERASE 13 U/L (10-37); BILIRUBIN,TOTAL 0.3 MG/DL (0.1-1.0); BLOOD UREA NITROGEN 47 MG/DL (7-18); BUN/CREATININE RATIO 13.7 (6.6-38.0); CALCIUM 7.9 MG/DL (8.5-10.1); CHLORIDE 111 MMOL/L (99-107); CREATININE 3.43 MG/DL (0.40-0.90); GLUCOSE 87 MG/DL (70-104); POTASSIUM 5.5 MMOL/L (3.5-5.1); SODIUM 141 MMOL/L (135-145); TOTAL CARBON DIOXIDE 18.6 MMOL/L (24-32); TOTAL PROTEIN 6.2 G/DL (6.4-8.2); eGFR 13 ML/MIN
== END 2020-11-26 13:00 | disposition home or self-care (01) ==
LOC: SSTAY O 10:52
PROVIDERS: ATTEND Internal Medicine
DX: E86.0 Dehydration (principal); M10.9 Gout, unspecified; E78.5 Hyperlipidemia, unspecified; E03.9 Hypothyroidism, unspecified; I12.9 Hypertensive chronic kidney disease with stage 1 through stage 4 chronic kidney disease, or unspecified chronic kidney disease; N18.30 Chronic kidney disease, stage 3 unspecified; E87.5 Hyperkalemia; I48.91 Unspecified atrial fibrillation; F03.90 Unspecified dementia, unspecified severity, without behavioral disturbance, psychotic disturbance, mood disturbance, and anxiety; F32.9 Major depressive disorder, single episode, unspecified; Z90.5 Acquired absence of kidney; Z86.73 Personal history of transient ischemic attack (TIA), and cerebral infarction without residual deficits; Z88.0 Allergy status to penicillin; Z88.2 Allergy status to sulfonamides; Z88.5 Allergy status to narcotic agent; Z79.899 Other long term (current) drug therapy; Z85.828 Personal history of other malignant neoplasm of skin; Z85.528 Personal history of other malignant neoplasm of kidney
CPT/HCPCS: 36415; 36573; 80053; 85025

== ENCOUNTER → 2020-12-03 | Outpatient (CLI) | payer MEDICARE, BC ==
[2020-12-03 13:45] LABS: BASOPHILS % (AUTO) 0.8 % (0-1); EOSINOPHILS # (AUTO) 0.1 X10'3 (0-0.9); EOSINOPHILS % (AUTO) 2.9 % (0-6); HEMATOCRIT 33.7 % (35.0-45.0); LYMPHOCYTES # (AUTO) 0.9 X10'3 (1.1-4.8); LYMPHOCYTES % (AUTO) 19.5 % (21-51); MEAN CORPUSCULAR HEMOGLOBIN 28.8 PG (27.0-31.0); MEAN CORPUSCULAR HGB CONC 32.6 g/dL (33.0-36.5); MEAN CORPUSCULAR VOLUME 88.4 FL (78-98); MONOCYTES # (AUTO) 0.3 X10'3 (0-0.9); MONOCYTES % (AUTO) 6.9 % (2-12); NEUTROPHILS # (AUTO) 3.4 X10'3 (1.8-7.7); NEUTROPHILS % (AUTO) 69.9 % (42-75); PLATELET COUNT 104 X10'3 (140-440); RED BLOOD COUNT 3.82 X10'6 (4.20-5.60); RED CELL DISTRIBUTION WIDTH 15.9 % (11.5-14.5); WHITE BLOOD COUNT 4.8 X10'3 (4.5-11.0)
[2020-12-03 13:51] LABS: ALANINE AMINOTRANSFERASE 12 U/L (12-78); ALBUMIN 3.3 G/DL (3.4-5.0); ALKALINE PHOSPHATASE 84 IU/L (46-116); ANION GAP 12 (8-16); ASPARTATE AMINO TRANSFERASE 10 U/L (10-37); BILIRUBIN,TOTAL 0.3 MG/DL (0.1-1.0); BLOOD UREA NITROGEN 38 MG/DL (7-18); BUN/CREATININE RATIO 18.9 (6.6-38.0); CALCIUM 7.7 MG/DL (8.5-10.1); CHLORIDE 112 MMOL/L (99-107); CREATININE 2.01 MG/DL (0.40-0.90); GLUCOSE 85 MG/DL (70-104); POTASSIUM 5.4 MMOL/L (3.5-5.1); SODIUM 141 MMOL/L (135-145); TOTAL PROTEIN 6.7 G/DL (6.4-8.2); eGFR 24 ML/MIN
== END | disposition home or self-care (01) ==
LOC: LAB 12:39
DX: N18.30 Chronic kidney disease, stage 3 unspecified (principal); D63.1 Anemia in chronic kidney disease
CPT/HCPCS: 36415; 80053; 85025

== ENCOUNTER 2021-01-20 22:03 | Inpatient (IN) | payer MEDICARE, BC ==
[~2021-01-20] VITALS: Ht 154.9 cm; Wt 62.9 kg
[~2021-01-20 22:03] MED LIST changes: -LEVO500T89 PO
[2021-01-20 23:09] LABS: BASOPHILS % (AUTO) 0.7 % (0-1); EOSINOPHILS % (AUTO) 1.2 % (0-6); HEMOGLOBIN 11.2 g/dl (12.0-16.0); LYMPHOCYTES # (AUTO) 0.4 X10'3 (1.1-4.8); LYMPHOCYTES % (AUTO) 19.5 % (21-51); MEAN CORPUSCULAR HEMOGLOBIN 28.8 PG (27.0-31.0); MEAN CORPUSCULAR VOLUME 87.1 FL (78-98); MEAN PLATELET VOLUME 7.5 FL (7.4-10.4); MONOCYTES # (AUTO) 0.4 X10'3 (0-0.9); MONOCYTES % (AUTO) 19.5 % (2-12); NEUTROPHILS # (AUTO) 1.2 X10'3 (1.8-7.7); NEUTROPHILS % (AUTO) 59.1 % (42-75); PLATELET COUNT 93 X10'3 (140-440); RED BLOOD COUNT 3.91 X10'6 (4.20-5.60); RED CELL DISTRIBUTION WIDTH 15.1 % (11.5-14.5)
[2021-01-20 23:22] LABS: AMMONIA < 10 UMOL/L (11-32)
[2021-01-20 23:27] LABS: LACTIC SEPSIS 0.8 MMOL/L (0.4-2.0)
[2021-01-20 23:34] LABS: ALANINE AMINOTRANSFERASE 12 U/L (12-78); ALBUMIN 3.4 G/DL (3.4-5.0); ALBUMIN/GLOBULIN RATIO 1.1 (1.1-1.5); ALKALINE PHOSPHATASE 94 IU/L (46-116); ANION GAP 8 (8-16); ASPARTATE AMINO TRANSFERASE 13 U/L (10-37); BILIRUBIN,TOTAL 0.5 MG/DL (0.1-1.0); BLOOD UREA NITROGEN 19 MG/DL (7-18); BUN/CREATININE RATIO 10.6 (6.6-38.0); CALCIUM 8.3 MG/DL (8.5-10.1); CHLORIDE 107 MMOL/L (99-107); ETHANOL < 0.010 GM/DL (0.0-0.010); GLUCOSE 81 MG/DL (70-104); POTASSIUM 3.3 MMOL/L (3.5-5.1); SODIUM 142 MMOL/L (135-145); TOTAL CARBON DIOXIDE 27.1 MMOL/L (24-32); TOTAL PROTEIN 6.5 G/DL (6.4-8.2); TROPONIN I < 0.04 NG/ML (0.0-0.05); eGFR 27 ML/MIN
[2021-01-20 23:39] LABS: LYMPHOCYTES % (MANUAL) 21 % (21-51); METAMYLEOCYTES% (MANUAL) 1 % (0-0); MONOCYTES % (MANUAL) 8 % (2-12); NEUTROPHILS % (MANUAL) 70 % (42-75); PLATELET ESTIMATE DECREASED; TOTAL CELLS COUNTED 100
[2021-01-20 23:58] LABS: URINE AMPHETAMINE SCREEN NEGATIVE (Neg); URINE BARBITUATE SCREEN NEGATIVE (Neg); URINE BENZODIAZEPINES SCREEN NEGATIVE (Neg); URINE CANNABINOID SCREEN NEGATIVE (Neg); URINE COCAINE SCREEN NEGATIVE (Neg); URINE METHADONE SCREEN NEGATIVE (Neg); URINE OPIATE SCREEN NEGATIVE (Neg); URINE PHENCYCLIDINE SCREEN NEGATIVE (Neg)
[2021-01-20 23:59] LABS: CLARITY,URINE CLEAR (Clear); COLOR,URINE YELLOW (Yellow); GLUCOSE, URINE NEGATIVE (Neg); KETONES,URINE NEGATIVE (Neg); PH,URINE 7.5 (4.8-8.0); PROTEIN,URINE >=1000 mg/dl (Neg); UA COLLECTION TYPE NON-SPECIFIED
[2021-01-21] LABS: LEUKOCYTE ESTERASE ,URINE NEGATIVE (Neg); NITRITES, URINE NEGATIVE (Neg); OCCULT BLOOD,URINE TRACE-LYSED (Neg); UROBILINOGEN,URINE 0.2 E.U/dL (0.2-1.0)
[2021-01-21 00:08] LABS: BACTERIA,URINE NONE SEEN /HPF (Neg); RBC,URINE NONE SEEN /HPF (0-2); SQUAMOUS EPITHELIAL CELL,UR NONE SEEN /LPF (FEW); WBC,URINE NONE SEEN /HPF (0-4)
[2021-01-21 02:57] LABS: ABG BASE EXCESS 2.5 mmol/L (-2.0-2.0); ABG HCO3 26.7 mmol/L (22.0-26.0); ABG OXYGEN SATURATION 97.9 % (94-97); ABG PCO2 (T) 40.6 mmHg (32.0-45.0); ABG PO2 (T) 112.7 mmHg (75.0-100.0); ALLEN'S TEST POSITIVE; FCOHb 0.3 % (0.0-3.9); FMetHb 0.2 % (0.0-1.5); FO2Hb 97.4 % (94-97); PATIENT TEMPERATURE 37.4
[2021-01-21] MEDS ORDERED: furosemide 10 MG/1 ML 10ml inj IV ONE (03:30)
[2021-01-21] MEDS ORDERED: mag hydrox/Alum hydrox/simeth 30ml oral suspension PO PRN (03:40)
[2021-01-21] MEDS ORDERED: acetaminophen 325mg tablet PO PRN (03:40)
[2021-01-21] MEDS ORDERED: magnesium 4gm in 100ml NS 100 ML IV PRN (03:40)
[2021-01-21] MEDS ORDERED: ondansetron/PF 4mg/2ml inj IV PRN (03:40)
[2021-01-21] MEDS ORDERED: magnesium hydroxide 30ml (MOM) UD suspension PO PRN (03:40)
[2021-01-21] MEDS ORDERED: magnesium Cl slow-release 64mg tablet PO PRN (03:40)
[2021-01-21] MEDS ORDERED: potassium Cl 20 mEq SR tablet PO PRN (03:40)
[2021-01-21] MEDS ORDERED: magnesium 2GM in 50ml NS 50 ML IV PRN (03:40)
[2021-01-21] MEDS ORDERED: potassium Cl 40MEQ/1/2NS 520ml 520 ML IV PRN ×2 (03:40)
[2021-01-21] MEDS ORDERED: metoclopramide 5 mg/ml inj IV PRN (03:40)
[2021-01-21] MEDS: docusate sod 100mg capsule PO SCH ×2 (07:06→20:07)
[2021-01-21] MEDS: levoTHYROXINE 25mcg tablet PO SCH (07:06)
[2021-01-21] MEDS: modafinil 100mg tablet PO SCH (07:06)
[2021-01-21] MEDS: potassium Cl 20 mEq SR tablet PO PRN (07:07)
[2021-01-21] MEDS: sertraline 50mg tablet PO SCH (07:07)
[2021-01-21] MEDS: losartan 50mg tablet PO SCH (07:07)
[2021-01-21] MEDS: furosemide 40mg/4ml inj IV SCH ×2 (07:13→20:07)
[2021-01-21] MEDS: heparin, porcine 5000 units/ml vial SQ SCH ×2 (07:14→20:06)
[2021-01-21] MEDS: dronedarone hcl 400mg tablet PO SCH ×2 (08:00→20:08)
[2021-01-21] MEDS: K and/or MAG REPLACEMENT MC SCH ×2 (08:00→20:00)
[2021-01-21] MEDS ORDERED: albuterol 2.5 MG/3 ML nebule NEB PRN (08:30)
[2021-01-21] MEDS ORDERED: ipratropium/albuterol 3ml nebule NEB PRN (08:30)
[2021-01-21] MEDS: acetaminophen 325mg tablet PO PRN (09:05)
[2021-01-21] MEDS: carvedilol 6.25mg tablet PO SCH ×2 (09:58→20:07)
[2021-01-21] MEDS ORDERED: ondansetron 4mg rapidly disintigrating tab PO PRN (14:00)
[2021-01-21] MEDS ORDERED: PERFLUTREN PROTEIN-A MICROSPHR (Optison) 0.22 MG/ML 3ML VIAL IV ONE (14:55)
[2021-01-21] MEDS: dextrose 5%-water 1,000 ML IV SCH (18:14)
[2021-01-21] MEDS: doxazosin mesylate 2mg tablet PO SCH (20:08)
--- NOTE | 2021-01-21 20:37 | NUR ---
educated pt on possible low blood suger from not eating. pt states "doesn't feel like eating at all". pt refused dinner tray. pt did drink 4oz of orange juice and drank water for medication pass.
--- NOTE | 2021-01-21 23:00 | NUR ---
full bed change. pt incontinent of stool and urine, purewick displaced. replaced purewick, placed pt on dry flows, pt in position of comfort, bed in low position with call light in reach.
--- NOTE | 2021-01-22 00:29 | NUR ---
md carrington notified of positive blood culture results. also notified her of pt blood pressure high after evening medication. new orders recieved
[2021-01-22] MEDS ORDERED: hydrALAZINE 20mg/ml inj. IV PRN (00:35)
[2021-01-22 01:49] LABS: BASOPHILS % (AUTO) 0.6 % (0-1); EOSINOPHILS % (AUTO) 0.4 % (0-6); HEMATOCRIT 35.8 % (35.0-45.0); HEMOGLOBIN 11.9 g/dl (12.0-16.0); LYMPHOCYTES # (AUTO) 0.7 X10'3 (1.1-4.8); LYMPHOCYTES % (AUTO) 17.2 % (21-51); MEAN CORPUSCULAR HEMOGLOBIN 28.4 PG (27.0-31.0); MEAN CORPUSCULAR HGB CONC 33.2 g/dL (33.0-36.5); MEAN CORPUSCULAR VOLUME 85.4 FL (78-98); MEAN PLATELET VOLUME 7.9 FL (7.4-10.4); MONOCYTES # (AUTO) 0.7 X10'3 (0-0.9); NEUTROPHILS # (AUTO) 2.5 X10'3 (1.8-7.7); NEUTROPHILS % (AUTO) 64.8 % (42-75); PLATELET COUNT 99 X10'3 (140-440); RED BLOOD COUNT 4.19 X10'6 (4.20-5.60); RED CELL DISTRIBUTION WIDTH 15.1 % (11.5-14.5); WHITE BLOOD COUNT 3.8 X10'3 (4.5-11.0)
[2021-01-22 02:00] LABS: PARTIAL THROMBOPLASTIN TIME 39 SECONDS (22-32)
[2021-01-22 02:05] LABS: ALANINE AMINOTRANSFERASE 11 U/L (12-78); ALBUMIN 3.3 G/DL (3.4-5.0); ALBUMIN/GLOBULIN RATIO 1.1 (1.1-1.5); ALKALINE PHOSPHATASE 95 IU/L (46-116); ANION GAP 6 (8-16); ASPARTATE AMINO TRANSFERASE 15 U/L (10-37); BILIRUBIN,TOTAL 0.9 MG/DL (0.1-1.0); BLOOD UREA NITROGEN 20 MG/DL (7-18); BUN/CREATININE RATIO 10.4 (6.6-38.0); CHLORIDE 102 MMOL/L (99-107); CREATININE 1.92 MG/DL (0.40-0.90); GLUCOSE 122 MG/DL (70-104); MAGNESIUM 1.4 MG/DL (1.5-2.4); POTASSIUM 3.5 MMOL/L (3.5-5.1); SODIUM 138 MMOL/L (135-145); TOTAL CARBON DIOXIDE 30.3 MMOL/L (24-32); TOTAL PROTEIN 6.3 G/DL (6.4-8.2); eGFR 25 ML/MIN
[2021-01-22] MEDS: dextrose 5%-water 1,000 ML IV SCH ×3 (04:39→18:22)
--- NOTE | 2021-01-22 05:32 | NUR ---
bed change, repositioned pt and purewick. bed in low position, pt in position of comfort, call light in reach.
[2021-01-22] MEDS: K and/or MAG REPLACEMENT MC SCH ×2 (08:00→20:00)
[2021-01-22] MEDS: modafinil 100mg tablet PO SCH (09:33)
[2021-01-22] MEDS: carvedilol 6.25mg tablet PO SCH ×2 (09:33→20:35)
[2021-01-22] MEDS: docusate sod 100mg capsule PO SCH ×2 (09:34→20:34)
[2021-01-22] MEDS: sertraline 50mg tablet PO SCH (09:34)
[2021-01-22] MEDS: losartan 50mg tablet PO SCH (09:34)
[2021-01-22] MEDS: levoFLOXACIN-Levaquin 500mg/D5 100 ML IV SCH ×2 (09:34→09:49)
[2021-01-22] MEDS: levoTHYROXINE 25mcg tablet PO SCH (09:34)
[2021-01-22] MEDS: furosemide 40mg/4ml inj IV SCH ×2 (09:49→20:34)
[2021-01-22] MEDS: heparin, porcine 5000 units/ml vial SQ SCH (10:55)
[2021-01-22] MEDS: dronedarone hcl 400mg tablet PO SCH ×2 (10:55→20:51)
[2021-01-22] MEDS ORDERED: ondansetron/PF 4mg/2ml inj IV PRN (12:20)
[2021-01-22 16:21] LABS: C DIFF ANTIGEN NEGATIVE (NEGATIVE); C DIFF SPECIMEN=DIARRHEA? ACCEPTABLE; C DIFFICILE TOXINS A&B NEGATIVE (Neg)
[2021-01-22] MEDS: pantoprazole 40MG/NS 100ML BAG 100 ML IV SCH ×2 (17:28→20:35)
[2021-01-22 19:00] VITALS: BP 169/94
--- NOTE | 2021-01-22 19:01 | NUR ---
Patient in room ED 6. I have received report from SHERRIE MCNAIR IN ER and had the opportunity to ask questions and will assume patient care patient arrives.
[2021-01-22] MEDS: apixaban 5mg tablet PO SCH (20:34)
[2021-01-22] MEDS: doxazosin mesylate 2mg tablet PO SCH (20:34)
[2021-01-22 22:00] VITALS: BP 114/65
[2021-01-23] MEDS ORDERED: LORazepam 2 mg/ml vial IV ONE (00:50)
[2021-01-23] MEDS: pantoprazole 40MG/NS 100ML BAG 100 ML IV SCH ×5 (01:01→21:34)
[2021-01-23 02:00] VITALS: BP 141/95
[2021-01-23] MEDS: dextrose 5%-water 1,000 ML IV SCH (06:31)
--- NOTE | 2021-01-23 06:35 | NUR ---
Problems reprioritized. Patient report given, questions answered & plan of care reviewed with SHEN MCNAIR.
[2021-01-23 06:44] LABS: BASOPHILS % (AUTO) 0.2 % (0-1); EOSINOPHILS % (AUTO) 0.5 % (0-6); HEMATOCRIT 33.6 % (35.0-45.0); HEMOGLOBIN 11.4 g/dl (12.0-16.0); LYMPHOCYTES # (AUTO) 0.4 X10'3 (1.1-4.8); LYMPHOCYTES % (AUTO) 17.4 % (21-51); MEAN CORPUSCULAR HEMOGLOBIN 28.9 PG (27.0-31.0); MEAN CORPUSCULAR HGB CONC 33.9 g/dL (33.0-36.5); MEAN CORPUSCULAR VOLUME 85.2 FL (78-98); MEAN PLATELET VOLUME 7.9 FL (7.4-10.4); MONOCYTES # (AUTO) 0.3 X10'3 (0-0.9); MONOCYTES % (AUTO) 13.7 % (2-12); NEUTROPHILS # (AUTO) 1.5 X10'3 (1.8-7.7); NEUTROPHILS % (AUTO) 68.2 % (42-75); PLATELET COUNT 84 X10'3 (140-440); RED BLOOD COUNT 3.94 X10'6 (4.20-5.60); RED CELL DISTRIBUTION WIDTH 14.7 % (11.5-14.5); WHITE BLOOD COUNT 2.2 X10'3 (4.5-11.0)
[2021-01-23 06:51] LABS: PARTIAL THROMBOPLASTIN TIME 44 SECONDS (22-32)
--- NOTE | 2021-01-23 06:53 | NUR ---
Patient in room PCU 3008. I have received report from Marybeth MCNAIR and had the opportunity to ask questions and assume patient care. Pt Semi fowlers in bed with O2/NC/3LPM. safety measures in place. no s/s acute distress.
[2021-01-23 07:00] VITALS: BP 129/78
[2021-01-23 07:08] LABS: ALANINE AMINOTRANSFERASE 6 U/L (12-78); ALBUMIN 2.9 G/DL (3.4-5.0); ALKALINE PHOSPHATASE 79 IU/L (46-116); ANION GAP 8 (8-16); ASPARTATE AMINO TRANSFERASE 15 U/L (10-37); BILIRUBIN,TOTAL 0.5 MG/DL (0.1-1.0); BLOOD UREA NITROGEN 21 MG/DL (7-18); BUN/CREATININE RATIO 10.6 (6.6-38.0); CALCIUM 7.3 MG/DL (8.5-10.1); CHLORIDE 92 MMOL/L (99-107); CREATININE 1.98 MG/DL (0.40-0.90); GLUCOSE 136 MG/DL (70-104); MAGNESIUM 1.2 MG/DL (1.5-2.4); POTASSIUM 3.1 MMOL/L (3.5-5.1); SODIUM 129 MMOL/L (135-145); TOTAL CARBON DIOXIDE 29.1 MMOL/L (24-32); TOTAL PROTEIN 5.9 G/DL (6.4-8.2); eGFR 24 ML/MIN
[2021-01-23 07:44] LABS: PLATELET ESTIMATE DECREASED; TOTAL CELLS COUNTED 100
[2021-01-23 07:45] LABS: ELLIPTOCYTES FEW
[2021-01-23] MEDS: carvedilol 6.25mg tablet PO SCH ×2 (08:00→21:34)
--- NOTE | 2021-01-23 08:00 | NUR ---
Pharmacy paged Protonix dose not available on the floor to administer. Pharmacy paged.
[2021-01-23] MEDS: sertraline 50mg tablet PO SCH (08:09)
[2021-01-23] MEDS: docusate sod 100mg capsule PO SCH ×2 (08:09→21:34)
[2021-01-23] MEDS: apixaban 5mg tablet PO SCH (08:09)
[2021-01-23] MEDS: furosemide 40mg/4ml inj IV SCH ×2 (08:09→21:35)
[2021-01-23] MEDS: modafinil 100mg tablet PO SCH (08:10)
[2021-01-23] MEDS: levoTHYROXINE 25mcg tablet PO SCH (08:11)
[2021-01-23] MEDS: losartan 50mg tablet PO SCH (08:11)
[2021-01-23] MEDS: dronedarone hcl 400mg tablet PO SCH ×2 (08:14→21:34)
[2021-01-23] MEDS: K and/or MAG REPLACEMENT MC SCH ×2 (08:17→20:00)
[2021-01-23] MEDS ORDERED: vancomycin/NS 1 GM ADD-VANTAGE 250 ML IV PRN (10:40)
--- NOTE | 2021-01-23 10:43 | NUR ---
Ever Consult: Ever Stephen w/ skin intact per EMR. Addendum: 01/23/21 at [address] Amended: Links added.
[2021-01-23 11:00] VITALS: BP 153/86
--- NOTE | 2021-01-23 11:34 | NUR ---
Pt's daughter expressing her mother is not a full code. Per Nikki Depieri her mother is limited code. no compressions, no intubation. Additional nurse Itzel MCNAIR witnessed Nikki Depieri state/indicate no compressions, no intubation. Dr. Cheng paged and notified. "PAGER ID: [phone] MESSAGE: RE: [phone] Shi Fischer: Per daughter, pt is limited code: no compressions, no intubation. additional nurse witnessed this statement. Can you/we change her code status ? Thank you, Roxanne #[phone]"
--- NOTE | 2021-01-23 13:06 | NUR ---
Dr. Prosper camar[place]. PAGER ID: [phone] MESSAGE: RE: Shi Fischer: [phone]: Pt diet changed to pureed/honey thick liq. pt coughing on food and water. pt with significant lung congestion/rattle. -Roxanne #[phone]
[2021-01-23 15:00] VITALS: BP 153/84
[2021-01-23 18:00] VITALS: BP 145/91
--- NOTE | 2021-01-23 19:03 | NUR ---
Problems reprioritized. Patient report given, questions answered & plan of care reviewed with Prudence RN.
[2021-01-23] MEDS: doxazosin mesylate 2mg tablet PO SCH (21:34)
[2021-01-23 22:00] VITALS: BP 154/81
[2021-01-24] MEDS: pantoprazole 40MG/NS 100ML BAG 100 ML IV SCH ×5 (01:09→21:00)
[2021-01-24 02:00] VITALS: BP 150/69
[2021-01-24] MEDS: potassium Cl 20 mEq SR tablet PO PRN (02:07)
[2021-01-24] MEDS: VANCOMYCIN LEVEL IV SCH (03:00)
[2021-01-24 06:00] VITALS: BP 148/68
[2021-01-24 06:27] LABS: BASOPHILS % (AUTO) 0.3 % (0-1); EOSINOPHILS % (AUTO) 1.1 % (0-6); HEMATOCRIT 33.5 % (35.0-45.0); HEMOGLOBIN 11.1 g/dl (12.0-16.0); LYMPHOCYTES # (AUTO) 0.2 X10'3 (1.1-4.8); LYMPHOCYTES % (AUTO) 6.9 % (21-51); MEAN CORPUSCULAR HEMOGLOBIN 28.4 PG (27.0-31.0); MEAN CORPUSCULAR HGB CONC 33.1 g/dL (33.0-36.5); MEAN CORPUSCULAR VOLUME 85.6 FL (78-98); MEAN PLATELET VOLUME 8.5 FL (7.4-10.4); MONOCYTES # (AUTO) 0.3 X10'3 (0-0.9); MONOCYTES % (AUTO) 9.5 % (2-12); NEUTROPHILS # (AUTO) 2.7 X10'3 (1.8-7.7); NEUTROPHILS % (AUTO) 82.2 % (42-75); PLATELET COUNT 85 X10'3 (140-440); RED BLOOD COUNT 3.92 X10'6 (4.20-5.60); RED CELL DISTRIBUTION WIDTH 14.7 % (11.5-14.5); WHITE BLOOD COUNT 3.3 X10'3 (4.5-11.0)
--- NOTE | 2021-01-24 06:28 | NUR ---
Patient in room PCU 3008. I have received report from Marybeth MCNAIR and had the opportunity to ask questions and assume patient care.
--- NOTE | 2021-01-24 06:33 | NUR ---
Problems reprioritized. Patient report given, questions answered & plan of care reviewed with JUVENAL MCNAIR.
[2021-01-24 06:49] LABS: PARTIAL THROMBOPLASTIN TIME 50 SECONDS (22-32)
[2021-01-24 07:21] LABS: ALANINE AMINOTRANSFERASE < 6 U/L (12-78); ALBUMIN 2.8 G/DL (3.4-5.0); ALBUMIN/GLOBULIN RATIO 0.9 (1.1-1.5); ALKALINE PHOSPHATASE 77 IU/L (46-116); ANION GAP 9 (8-16); ASPARTATE AMINO TRANSFERASE 13 U/L (10-37); BILIRUBIN,TOTAL 0.4 MG/DL (0.1-1.0); BLOOD UREA NITROGEN 25 MG/DL (7-18); BUN/CREATININE RATIO 10.7 (6.6-38.0); CALCIUM 7.3 MG/DL (8.5-10.1); CHLORIDE 95 MMOL/L (99-107); CREATININE 2.34 MG/DL (0.40-0.90); GLUCOSE 88 MG/DL (70-104); MAGNESIUM 1.3 MG/DL (1.5-2.4); POTASSIUM 3.7 MMOL/L (3.5-5.1); SODIUM 134 MMOL/L (135-145); TOTAL CARBON DIOXIDE 29.7 MMOL/L (24-32); TOTAL PROTEIN 5.8 G/DL (6.4-8.2); VANCOMYCIN,RANDOM 18.3 UG/ML; eGFR 20 ML/MIN
[2021-01-24] MEDS ORDERED: magnesium 4gm in 100ml NS 100 ML IV PRN (07:25)
[2021-01-24] MEDS ORDERED: magnesium Cl slow-release 64mg tablet PO PRN (07:25)
[2021-01-24] MEDS ORDERED: potassium Cl 20 mEq SR tablet PO PRN ×2 (07:25)
[2021-01-24] MEDS: carvedilol 6.25mg tablet PO SCH ×3 (08:00→20:00)
[2021-01-24] MEDS: dronedarone hcl 400mg tablet PO SCH ×3 (08:00→20:00)
[2021-01-24] MEDS: losartan 50mg tablet PO SCH ×2 (08:00→08:27)
[2021-01-24] MEDS: K and/or MAG REPLACEMENT MC SCH ×2 (08:10→20:00)
[2021-01-24] MEDS: levoTHYROXINE 25mcg tablet PO SCH (08:25)
[2021-01-24] MEDS: furosemide 40mg/4ml inj IV SCH ×2 (08:25→08:55)
[2021-01-24] MEDS: docusate sod 100mg capsule PO SCH ×2 (08:26→20:00)
[2021-01-24] MEDS: sertraline 50mg tablet PO SCH (08:28)
[2021-01-24] MEDS: modafinil 100mg tablet PO SCH (08:30)
--- NOTE | 2021-01-24 10:43 | NUR ---
Pt refused her blood pressure medications this AM, stating she "only takes them at night", educated patient on different medication administration schedule while she's here at the hospital, pt continues to refuse. BP 148/68, HR 55. Made Dr. Cheng aware, who wishes her to take her Coreg and Losartan for her Afib, will re-offer medication at next pt interaction.
[2021-01-24 13:00] VITALS: BP 123/60
--- NOTE | 2021-01-24 13:36 | NUR ---
PAGER ID: [phone] MESSAGE: Pt Shi Fischer 300, her daughter is here and is requesting a blood gas for her mom because of her confusion which she insists is new. ABG was done 01/21 and pH was normal. Daughter is bedside, thank you, Erika [id number]
--- NOTE | 2021-01-24 13:40 | NUR ---
New order from Prosper for ABG
[2021-01-24 14:12] VITALS: BP 135/87
[2021-01-24 14:28] LABS: ABG BASE EXCESS 1.2 mmol/L (-2.0-2.0); ABG HCO3 24.9 mmol/L (22.0-26.0); ABG PCO2 (T) 36.6 mmHg (32.0-45.0); ABG PO2 (T) 82.2 mmHg (75.0-100.0); ALLEN'S TEST POSITIVE; FLOW 2 L/min; FMetHb 0.2 % (0.0-1.5); FO2Hb 95.8 % (94-97); TOTAL HEMOGLOBIN 12.2 G/dl (12.0-16.0)
[2021-01-24 15:00] VITALS: BP 126/83
--- NOTE | 2021-01-24 18:18 | NUR ---
Problems reprioritized. Patient report given, questions answered & plan of care reviewed with Pat RN.
--- NOTE | 2021-01-24 18:21 | NUR ---
Problems reprioritized. Patient report given, questions answered & plan of care reviewed with Pat RN.
[2021-01-24 19:30] VITALS: BP 122/77
[2021-01-24] MEDS: doxazosin mesylate 2mg tablet PO SCH (21:00)
[2021-01-25] VITALS (8 sets, daily range): BP systolic 134–163; BP diastolic 70–96
[2021-01-25] MEDS ORDERED: LORazepam 2 mg/ml vial IV ONE (00:25)
[2021-01-25] MEDS: pantoprazole 40MG/NS 100ML BAG 100 ML IV SCH ×3 (01:53→06:36)
[2021-01-25] MEDS: VANCOMYCIN LEVEL IV SCH (03:00)
[2021-01-25 07:39] LABS: BASOPHILS % (AUTO) 0.2 % (0-1); EOSINOPHILS % (AUTO) 0.9 % (0-6); HEMATOCRIT 34.1 % (35.0-45.0); HEMOGLOBIN 11.6 g/dl (12.0-16.0); LYMPHOCYTES # (AUTO) 0.3 X10'3 (1.1-4.8); LYMPHOCYTES % (AUTO) 10.6 % (21-51); MEAN CORPUSCULAR HEMOGLOBIN 28.9 PG (27.0-31.0); MEAN CORPUSCULAR HGB CONC 34.1 g/dL (33.0-36.5); MEAN CORPUSCULAR VOLUME 84.9 FL (78-98); MEAN PLATELET VOLUME 8.3 FL (7.4-10.4); MONOCYTES # (AUTO) 0.4 X10'3 (0-0.9); MONOCYTES % (AUTO) 13.3 % (2-12); NEUTROPHILS # (AUTO) 2.1 X10'3 (1.8-7.7); PLATELET COUNT 77 X10'3 (140-440); RED BLOOD COUNT 4.02 X10'6 (4.20-5.60); RED CELL DISTRIBUTION WIDTH 14.6 % (11.5-14.5); WHITE BLOOD COUNT 2.8 X10'3 (4.5-11.0)
[2021-01-25 08:00] LABS: ALANINE AMINOTRANSFERASE 8 U/L (12-78); ALBUMIN 2.8 G/DL (3.4-5.0); ALBUMIN/GLOBULIN RATIO 0.9 (1.1-1.5); ALKALINE PHOSPHATASE 79 IU/L (46-116); ANION GAP 4 (8-16); ASPARTATE AMINO TRANSFERASE 15 U/L (10-37); BILIRUBIN,TOTAL 0.4 MG/DL (0.1-1.0); BLOOD UREA NITROGEN 30 MG/DL (7-18); BUN/CREATININE RATIO 12.1 (6.6-38.0); CALCIUM 7.3 MG/DL (8.5-10.1); CHLORIDE 93 MMOL/L (99-107); CREATININE 2.48 MG/DL (0.40-0.90); GLUCOSE 76 MG/DL (70-104); MAGNESIUM 1.4 MG/DL (1.5-2.4); SODIUM 124 MMOL/L (135-145); TOTAL CARBON DIOXIDE 27.4 MMOL/L (24-32); TOTAL PROTEIN 5.9 G/DL (6.4-8.2); VANCOMYCIN,RANDOM 13.6 UG/ML; eGFR 19 ML/MIN
[2021-01-25] MEDS: K and/or MAG REPLACEMENT MC SCH ×2 (08:00→20:00)
[2021-01-25] MEDS: docusate sod 100mg capsule PO SCH ×2 (08:00→20:00)
[2021-01-25 08:23] LABS: PLATELET ESTIMATE DECREASED; TOTAL CELLS COUNTED 100
[2021-01-25 08:24] LABS: SMUDGE CELLS FEW
[2021-01-25] MEDS: potassium Cl 40MEQ/1/2NS 520ml 520 ML IV PRN ×2 (09:17→14:33)
[2021-01-25] MEDS: sertraline 50mg tablet PO SCH (09:18)
[2021-01-25] MEDS: normal saline 1000ml 1,000 ML IV SCH (09:18)
[2021-01-25] MEDS: dronedarone hcl 400mg tablet PO SCH ×2 (09:19→20:00)
[2021-01-25] MEDS: carvedilol 6.25mg tablet PO SCH ×2 (09:19→20:00)
[2021-01-25] MEDS: modafinil 100mg tablet PO SCH (09:20)
[2021-01-25] MEDS: levoTHYROXINE 25mcg tablet PO SCH (09:20)
[2021-01-25] MEDS: losartan 50mg tablet PO SCH (09:27)
[2021-01-25] MEDS: furosemide 40mg/4ml inj IV SCH (09:28)
[2021-01-25] MEDS ORDERED: vancomycin/NS 1 GM ADD-VANTAGE 250 ML IV ONE (12:45)
--- NOTE | 2021-01-25 17:00 | NUR ---
Pt has become more resistive to care, very confused, somewhat combative at times. Pulled out IV, unable to finish vanco/potassium. Trying to clean up patient. Unable to leave bedside for long at this time due to risk of fall.
--- NOTE | 2021-01-25 18:00 | NUR ---
Will send patient to covid unit after shift change so patient has better view from nursing with current confusion.
--- NOTE | 2021-01-25 18:30 | NUR ---
Pt refusing to go back to bed, confused, trying to walk out but unable to walk well, fall risk. Dr Cheng notified. PRN ativan 0.5mg ordered and restraint order. Pt waiting to be moved to covid unit. Waiting to give report to RN.
[2021-01-25] MEDS ORDERED: LORazepam 2 mg/ml vial IV PRN (19:30)
--- NOTE | 2021-01-25 19:45 | NUR ---
Pt moved to covid unit. In restraints at this time. Report given to Kiki MCNAIR. She is aware that patient needs 2nd bag of potassium and was unable to finish vanco due to pt pulling out IV. Dr Cheng also told when I talked to him. Jimydamir will finish potasssium and hang magnesium and states she will do a redraw for critical potassium. Pt refused PO meds and difficult IV start.
[2021-01-25] MEDS: pantoprazole 40mg Tablet.DR PO SCH (20:00)
--- NOTE | 2021-01-25 20:00 | NUR ---
Talked to Nikki, daughter multiple times to update on plan of care. She is aware of confusion and thats patient is now in covid unit for more eyes on her mom during confusion.
[2021-01-25] MEDS: doxazosin mesylate 2mg tablet PO SCH (21:00)
[2021-01-26] MEDS: VANCOMYCIN LEVEL IV SCH (03:00)
[2021-01-26] MEDS: normal saline 1000ml 1,000 ML IV SCH (04:52)
[2021-01-26] MEDS: docusate sod 100mg capsule PO SCH (07:45)
[2021-01-26] MEDS: pantoprazole 40mg Tablet.DR PO SCH ×2 (07:45→20:10)
[2021-01-26] MEDS: acetaminophen 325mg tablet PO PRN (07:45)
[2021-01-26 07:49] VITALS: BP 150/87
[2021-01-26] MEDS: losartan 50mg tablet PO SCH (07:51)
[2021-01-26] MEDS: sertraline 50mg tablet PO SCH (07:51)
[2021-01-26] MEDS: carvedilol 6.25mg tablet PO SCH ×2 (07:52→20:09)
[2021-01-26] MEDS: levoTHYROXINE 25mcg tablet PO SCH (07:52)
[2021-01-26] MEDS: modafinil 100mg tablet PO SCH (07:53)
[2021-01-26] MEDS: K and/or MAG REPLACEMENT MC SCH ×2 (07:53→19:49)
[2021-01-26] MEDS: dronedarone hcl 400mg tablet PO SCH ×2 (08:00→20:10)
[2021-01-26 08:36] LABS: BASOPHILS % (AUTO) 0.3 % (0-1); EOSINOPHILS % (AUTO) 0.5 % (0-6); HEMOGLOBIN 12.3 g/dl (12.0-16.0); LYMPHOCYTES # (AUTO) 0.3 X10'3 (1.1-4.8); LYMPHOCYTES % (AUTO) 9.1 % (21-51); MEAN CORPUSCULAR HEMOGLOBIN 28.2 PG (27.0-31.0); MEAN CORPUSCULAR HGB CONC 33.3 g/dL (33.0-36.5); MEAN CORPUSCULAR VOLUME 84.6 FL (78-98); MEAN PLATELET VOLUME 8.7 FL (7.4-10.4); MONOCYTES # (AUTO) 0.4 X10'3 (0-0.9); MONOCYTES % (AUTO) 12.5 % (2-12); NEUTROPHILS # (AUTO) 2.4 X10'3 (1.8-7.7); NEUTROPHILS % (AUTO) 77.6 % (42-75); PLATELET COUNT 93 X10'3 (140-440); RED BLOOD COUNT 4.37 X10'6 (4.20-5.60); RED CELL DISTRIBUTION WIDTH 14.8 % (11.5-14.5); WHITE BLOOD COUNT 3.1 X10'3 (4.5-11.0)
[2021-01-26 08:58] LABS: ALANINE AMINOTRANSFERASE 9 U/L (12-78); ALBUMIN/GLOBULIN RATIO 0.8 (1.1-1.5); ALKALINE PHOSPHATASE 83 IU/L (46-116); ANION GAP 9 (8-16); ASPARTATE AMINO TRANSFERASE 15 U/L (10-37); BILIRUBIN,TOTAL 0.5 MG/DL (0.1-1.0); BLOOD UREA NITROGEN 31 MG/DL (7-18); CALCIUM 7.9 MG/DL (8.5-10.1); CHLORIDE 100 MMOL/L (99-107); CREATININE 2.06 MG/DL (0.40-0.90); GLUCOSE 77 MG/DL (70-104); MAGNESIUM 1.5 MG/DL (1.5-2.4); POTASSIUM 3.9 MMOL/L (3.5-5.1); SODIUM 134 MMOL/L (135-145); TOTAL PROTEIN 6.6 G/DL (6.4-8.2); VANCOMYCIN,RANDOM 15.6 UG/ML; eGFR 23 ML/MIN
[2021-01-26 11:45] VITALS: BP 115/68
--- NOTE | 2021-01-26 14:59 | NUR ---
Initial: Pt admit DX COVID-19, possible CHF exacerbation, acute encephalopathy secondary to sepsis vs toxic/Benadryl usage, afib, acute on chronic renal failure, and hyponatremia per MD note. Pt AOx1 w/ hx early dementia per EMR PO 0-25% avg meals 5 days not meeting needs. Noted pt serum Na 134 receiving NS initially on Na-restricted diet however advanced to pureed/honey thick since coughing on foods/water per RN note. RD recommended INSIDE SALES PERSON BSS given report swallow issue since none this admit; MD notified. IF pt unable to take safe PO would benefit from NG nutrition to meet needs IF within plan of care this admit. TF recs below in case alternative nutrition. LBM 01/26 w/ colace stopped given frequent diarrhea per MD note. Will continue to monitor. Rec: 1. advance diet as medically indicated to regular per INSIDE SALES PERSON/MD recs; pending BSS 2. IF unsafe for PO would benefit from NG nutrition IF within patient's plan of care; IF TF Vital AF at 65ml/hr goal to provide 1560ml volume/day, 1264ml water, 1872 kcals, and 117g protein. 3. IF TF; additional free water per MD; serum Na 134 4. IF TF; PALB Q /; daily wts 5. bowel care per rx; consider anti-diarrheal if diarrhea persists 6. weekly wts Addendum: 01/26/21 at [address] Amended: Links added.
--- NOTE | 2021-01-26 15:52 | NUR ---
Called CT- they have 2 pts ahead of this pt. for head CT
--- NOTE | 2021-01-26 15:57 | NUR ---
PAGER ID: [phone] MESSAGE: Shi Fischer [id number] Can I have nystatin order for red rash in groin please? Mounika [phone]
[2021-01-26 16:40] VITALS: BP 133/74
[2021-01-26 18:00] VITALS: BP 150/81
--- NOTE | 2021-01-26 18:51 | NUR ---
Pt. just repositioned and cleaned. Gave report to traveler RN.
[2021-01-26 20:00] VITALS: BP 150/81
[2021-01-26] MEDS: doxazosin mesylate 2mg tablet PO SCH (20:10)
[2021-01-27] MEDS: normal saline 1000ml 1,000 ML IV SCH ×2 (00:22→20:30)
[2021-01-27 02:00] VITALS: BP 139/98
[2021-01-27] MEDS: VANCOMYCIN LEVEL IV SCH (03:00)
--- NOTE | 2021-01-27 06:32 | NUR ---
Problems reprioritized. Patient report given, questions answered & plan of care reviewed with Nieves MCNAIR.
[2021-01-27 07:47] LABS: MAGNESIUM 1.6 MG/DL (1.5-2.4); VANCOMYCIN,RANDOM 12.2 UG/ML
[2021-01-27] MEDS: K and/or MAG REPLACEMENT MC SCH ×2 (08:00→20:00)
[2021-01-27] MEDS: pantoprazole 40mg Tablet.DR PO SCH ×2 (08:15→21:09)
[2021-01-27] MEDS: sertraline 50mg tablet PO SCH (08:15)
[2021-01-27] MEDS: levoTHYROXINE 25mcg tablet PO SCH (08:15)
[2021-01-27] MEDS: carvedilol 6.25mg tablet PO SCH ×2 (08:15→21:09)
[2021-01-27] MEDS: modafinil 100mg tablet PO SCH (08:16)
[2021-01-27] MEDS: losartan 50mg tablet PO SCH (08:17)
[2021-01-27 09:16] LABS: BASOPHILS % (AUTO) 0.3 % (0-1); EOSINOPHILS % (AUTO) 1.4 % (0-6); HEMATOCRIT 37.6 % (35.0-45.0); HEMOGLOBIN 12.3 g/dl (12.0-16.0); LYMPHOCYTES # (AUTO) 0.3 X10'3 (1.1-4.8); LYMPHOCYTES % (AUTO) 13.3 % (21-51); MEAN CORPUSCULAR HEMOGLOBIN 28.2 PG (27.0-31.0); MEAN CORPUSCULAR HGB CONC 32.6 g/dL (33.0-36.5); MEAN CORPUSCULAR VOLUME 86.5 FL (78-98); MEAN PLATELET VOLUME 8.6 FL (7.4-10.4); MONOCYTES # (AUTO) 0.3 X10'3 (0-0.9); MONOCYTES % (AUTO) 10.3 % (2-12); NEUTROPHILS # (AUTO) 1.8 X10'3 (1.8-7.7); NEUTROPHILS % (AUTO) 74.7 % (42-75); PLATELET COUNT 87 X10'3 (140-440); RED BLOOD COUNT 4.35 X10'6 (4.20-5.60); RED CELL DISTRIBUTION WIDTH 14.8 % (11.5-14.5); WHITE BLOOD COUNT 2.4 X10'3 (4.5-11.0)
[2021-01-27 09:22] LABS: ALBUMIN 2.8 G/DL (3.4-5.0); ANION GAP 15 (8-16); BLOOD UREA NITROGEN 29 MG/DL (7-18); BUN/CREATININE RATIO 15.3 (6.6-38.0); CALCIUM 8.1 MG/DL (8.5-10.1); CHLORIDE 103 MMOL/L (99-107); CREATININE 1.89 MG/DL (0.40-0.90); GLUCOSE 60 MG/DL (70-104); POTASSIUM 3.9 MMOL/L (3.5-5.1); SODIUM 140 MMOL/L (135-145); TOTAL CARBON DIOXIDE 21.9 MMOL/L (24-32); eGFR 26 ML/MIN
[2021-01-27 09:46] LABS: TOTAL CELLS COUNTED 100
[2021-01-27 09:47] LABS: PLATELET ESTIMATE DECREASED; TOXIC VACUOLATION 1+
[2021-01-27] MEDS ORDERED: vancomycin/NS 1 GM ADD-VANTAGE 250 ML IV ONE (14:05)
[2021-01-27] MEDS: dronedarone hcl 400mg tablet PO SCH ×2 (15:29→21:09)
[2021-01-27] MEDS: acetaminophen 325mg tablet PO PRN (16:52)
--- NOTE | 2021-01-27 17:07 | NUR ---
Pt lying in bed this shift. VS within normal limits.Sitter notified nurse of IV not being patent. Infiltration noted about 0700 this morning. RN accessed the area and removed IV. Pt hand elevated on 2 pillows. Pt denies pain at this time. Pt tolerated oral meds well this shift. Daughter called around 1000 and updated on status of patient. Picc line nurse paged x2 to restart IV due to attempted fail by charge nurse. VS taken at 1700 and nurse notified of patient having low grade fever of 99.3. PRN tylenol administered. Pt will continue to be monitored.
[2021-01-27 18:00] VITALS: BP 159/96
--- NOTE | 2021-01-27 19:10 | NUR ---
During shift change off going nurse mentioned no PIV in place. I asked about he left chest IV and was able to locate and flush to use. No new PIV placement needed.
[2021-01-27] MEDS: doxazosin mesylate 2mg tablet PO SCH (21:09)
[2021-01-27 22:00] VITALS: BP 109/64
[2021-01-28 02:00] VITALS: BP 118/72
[2021-01-28] MEDS: VANCOMYCIN LEVEL IV SCH (03:00)
--- NOTE | 2021-01-28 06:47 | NUR ---
Problems reprioritized. Patient report given, questions answered & plan of care reviewed with Audra MCNAIR.
--- NOTE | 2021-01-28 06:57 | NUR ---
Patient in room ORTHO 4015. I have received report from Christina MCNAIR and had the opportunity to ask questions and assume patient care.
[2021-01-28] MEDS: sertraline 50mg tablet PO SCH (08:00)
[2021-01-28] MEDS: levoTHYROXINE 25mcg tablet PO SCH (08:00)
[2021-01-28] MEDS: dronedarone hcl 400mg tablet PO SCH ×2 (08:00→22:23)
[2021-01-28] MEDS: modafinil 100mg tablet PO SCH (08:01)
[2021-01-28] MEDS: pantoprazole 40mg Tablet.DR PO SCH ×2 (08:01→22:24)
[2021-01-28] MEDS: losartan 50mg tablet PO SCH (08:05)
[2021-01-28] MEDS: carvedilol 6.25mg tablet PO SCH ×2 (08:07→22:23)
[2021-01-28 08:29] LABS: BASOPHILS % (AUTO) 0.5 % (0-1); EOSINOPHILS % (AUTO) 1.8 % (0-6); HEMATOCRIT 32.2 % (35.0-45.0); HEMOGLOBIN 10.7 g/dl (12.0-16.0); LYMPHOCYTES # (AUTO) 0.3 X10'3 (1.1-4.8); LYMPHOCYTES % (AUTO) 20.9 % (21-51); MEAN CORPUSCULAR HEMOGLOBIN 28.3 PG (27.0-31.0); MEAN CORPUSCULAR HGB CONC 33.3 g/dL (33.0-36.5); MEAN PLATELET VOLUME 7.8 FL (7.4-10.4); MONOCYTES # (AUTO) 0.2 X10'3 (0-0.9); MONOCYTES % (AUTO) 15.2 % (2-12); NEUTROPHILS # (AUTO) 0.8 X10'3 (1.8-7.7); NEUTROPHILS % (AUTO) 61.6 % (42-75); PLATELET COUNT 86 X10'3 (140-440); RED BLOOD COUNT 3.79 X10'6 (4.20-5.60); RED CELL DISTRIBUTION WIDTH 14.8 % (11.5-14.5); WHITE BLOOD COUNT 1.4 X10'3 (4.5-11.0)
[2021-01-28 08:40] LABS: ALBUMIN 2.5 G/DL (3.4-5.0); ANION GAP 12 (8-16); BLOOD UREA NITROGEN 34 MG/DL (7-18); BUN/CREATININE RATIO 14.7 (6.6-38.0); CALCIUM 7.9 MG/DL (8.5-10.1); CHLORIDE 107 MMOL/L (99-107); CREATININE 2.32 MG/DL (0.40-0.90); GLUCOSE 77 MG/DL (70-104); MAGNESIUM 1.7 MG/DL (1.5-2.4); POTASSIUM 3.3 MMOL/L (3.5-5.1); SODIUM 143 MMOL/L (135-145); TOTAL CARBON DIOXIDE 24.2 MMOL/L (24-32); VANCOMYCIN,RANDOM 24.8 UG/ML; eGFR 20 ML/MIN
[2021-01-28] MEDS ORDERED: magnesium 4gm in 100ml NS 100 ML IV PRN (09:55)
[2021-01-28] MEDS ORDERED: magnesium Cl slow-release 64mg tablet PO PRN (09:55)
[2021-01-28] MEDS ORDERED: potassium Cl 40MEQ/1/2NS 520ml 520 ML IV PRN (09:55)
[2021-01-28] MEDS ORDERED: potassium Cl 20 mEq SR tablet PO PRN (09:55)
[2021-01-28 10:00] VITALS: BP 115/76
[2021-01-28 10:17] LABS: ELLIPTOCYTES 1+; PLATELET ESTIMATE DECREASED
[2021-01-28] MEDS: potassium Cl 20 mEq SR tablet PO PRN ×3 (10:33→22:24)
[2021-01-28] MEDS: K and/or MAG REPLACEMENT MC SCH ×2 (10:36→20:00)
[2021-01-28] MEDS: normal saline 1000ml 1,000 ML IV SCH (10:36)
[2021-01-28 14:00] VITALS: BP 129/72
--- NOTE | 2021-01-28 14:20 | NUR ---
Reassessment: Pt advanced to pureed/thin liquids per BIOINFORMATICS SOFTWARE ENGINEER recs from prior honey thick. PO remains poor overall ~7% meals past 6 days not meeting needs. PO slightly improving since yesterday up to 38% avg w/ total assistance at meals though still not meeting needs. Pt remains ALOC AOx2; also noted pt receiving modafinil which can decrease appetite. BINU Protein Bar.Filmzu DO regarding appetite stimulant if agreeable. RD recommends ensure enlive TIDWM for additional protein/kcals given recent improvement in PO trends hopefully will drink; DO notified. Given poor PO hx since admit, R hand +2 edema, and severe weakness pt meets severe malnutrition criteria; DO notified. LBM 01/26. Will continue to monitor for additional protein/kcal needs. IF PO regresses then would certainly benefit from full strength vs supplemental EN to meet nutrition needs. Rec: 1. continue regular/pureed/thin liquids diet per BIOINFORMATICS SOFTWARE ENGINEER/DO recs; full assistance w/ meals; encourage PO 2. Ensure Enlive TIDWM; pending DO verification in EMR; encourage PO 3. consider appetite stimulant IF DO agreeable given poor PO hx 4. IF PO regresses would benefit from NG nutrition IF within patient's plan of care; IF TF Vital AF at 65ml/hr goal to provide 1560ml volume/day, 1264ml water, 1872 kcals, and 117g protein. 5. IF TF; additional water flush 125ml Q4H 6. IF TF; PALB Q M/; daily wts 7. bowel care per rx; consider anti-diarrheal if diarrhea persists 8. weekly wts Addendum: 01/28/21 at [address] Amended: Links added.
--- NOTE | 2021-01-28 17:06 | NUR ---
promotional table spacer PAGER ID: [phone] MESSAGE: Audra [phone]. Patient Amado Osullivan, 5022Z: WBC is 1.4, K level is 3.3. potassium replacement protocol already initiated. 2 doses of potassium 20meq has been given. (6140 and 3549)
--- NOTE | 2021-01-28 17:12 | NUR ---
Patient has 2 loose stool, Dr. Poole notified, order for C. diffe
[2021-01-28] MEDS: lactose-reduced food (Ensure Enlive) - 237ml bottle PO SCH (18:00)
--- NOTE | 2021-01-28 19:23 | NUR ---
Problems reprioritized. Patient report given, questions answered & plan of care reviewed with Lucy MCNAIR.
--- NOTE | 2021-01-28 20:42 | NUR ---
Patient in room ORTHO 4016. I have received report from Lucy MCNAIR and had the opportunity to ask questions and assume patient care.
[2021-01-28] MEDS: apixaban 5mg tablet PO SCH (22:23)
[2021-01-28] MEDS: doxazosin mesylate 2mg tablet PO SCH (22:24)
[2021-01-28 22:55] VITALS: BP 166/91
[2021-01-28 23:00] VITALS: BP 149/81
[2021-01-29 06:00] VITALS: BP 138/74
--- NOTE | 2021-01-29 06:30 | NUR ---
Patient in room ORTHO 4016. I have received report from Nathaniel MCNAIR and had the opportunity to ask questions and assume patient care.
--- NOTE | 2021-01-29 06:42 | NUR ---
patient report given to Day RN
[2021-01-29] MEDS: levoTHYROXINE 25mcg tablet PO SCH (09:11)
[2021-01-29] MEDS: modafinil 100mg tablet PO SCH (09:11)
[2021-01-29] MEDS: carvedilol 6.25mg tablet PO SCH ×2 (09:12→20:00)
[2021-01-29] MEDS: sertraline 50mg tablet PO SCH (09:12)
[2021-01-29] MEDS: apixaban 5mg tablet PO SCH ×2 (09:12→20:00)
[2021-01-29] MEDS: dronedarone hcl 400mg tablet PO SCH ×2 (09:12→20:00)
[2021-01-29] MEDS: pantoprazole 40mg Tablet.DR PO SCH ×2 (09:12→20:00)
[2021-01-29] MEDS: losartan 50mg tablet PO SCH (09:14)
[2021-01-29 10:00] VITALS: BP 112/60
[2021-01-29 12:09] LABS: BASOPHILS % (AUTO) 0.4 % (0-1); EOSINOPHILS % (AUTO) 1.6 % (0-6); HEMATOCRIT 33.9 % (35.0-45.0); HEMOGLOBIN 10.9 g/dl (12.0-16.0); LYMPHOCYTES # (AUTO) 0.3 X10'3 (1.1-4.8); LYMPHOCYTES % (AUTO) 20.7 % (21-51); MEAN CORPUSCULAR HGB CONC 32.1 g/dL (33.0-36.5); MEAN CORPUSCULAR VOLUME 87.2 FL (78-98); MEAN PLATELET VOLUME 7.6 FL (7.4-10.4); MONOCYTES # (AUTO) 0.3 X10'3 (0-0.9); MONOCYTES % (AUTO) 17.2 % (2-12); NEUTROPHILS # (AUTO) 0.9 X10'3 (1.8-7.7); NEUTROPHILS % (AUTO) 60.1 % (42-75); PLATELET COUNT 95 X10'3 (140-440); RED BLOOD COUNT 3.89 X10'6 (4.20-5.60); RED CELL DISTRIBUTION WIDTH 14.8 % (11.5-14.5); WHITE BLOOD COUNT 1.5 X10'3 (4.5-11.0)
[2021-01-29 12:27] LABS: ALBUMIN 2.5 G/DL (3.4-5.0); ALBUMIN/GLOBULIN RATIO 0.8 (1.1-1.5); ALKALINE PHOSPHATASE 67 IU/L (46-116); ASPARTATE AMINO TRANSFERASE 14 U/L (10-37); BILIRUBIN,TOTAL 0.3 MG/DL (0.1-1.0); BLOOD UREA NITROGEN 39 MG/DL (7-18); BUN/CREATININE RATIO 17.1 (6.6-38.0); CREATININE 2.28 MG/DL (0.40-0.90); GLUCOSE 103 MG/DL (70-104); TOTAL CARBON DIOXIDE 24.8 MMOL/L (24-32); TOTAL PROTEIN 5.8 G/DL (6.4-8.2); eGFR 21 ML/MIN
[2021-01-29 12:42] LABS: ALANINE AMINOTRANSFERASE 8 U/L (12-78); ANION GAP 8 (8-16); CHLORIDE 111 MMOL/L (99-107); SODIUM 144 MMOL/L (135-145)
[2021-01-29 14:00] VITALS: BP 137/73
[2021-01-29] MEDS ORDERED: PERFLUTREN PROTEIN-A MICROSPHR (Optison) 0.22 MG/ML 3ML VIAL IV ONE (14:00)
[2021-01-29 15:20] LABS: TOTAL CELLS COUNTED 100
[2021-01-29 15:21] LABS: ELLIPTOCYTES 1+; PLATELET ESTIMATE DECREASED
[2021-01-29 18:00] VITALS: BP 159/90
[2021-01-29] MEDS: lactose-reduced food (Ensure Enlive) - 237ml bottle PO SCH (18:00)
--- NOTE | 2021-01-29 18:41 | NUR ---
Problems reprioritized. Patient report given, questions answered & plan of care reviewed with Yessenia MCNAIR.
--- NOTE | 2021-01-29 18:43 | NUR ---
Patient in room ORTHO 4016. I have received report from TABBY Godinez and had the opportunity to ask questions and assume patient care.
[2021-01-29] MEDS: K and/or MAG REPLACEMENT MC SCH ×2 (18:53→18:54)
[2021-01-29 20:00] VITALS: BP 159/84
[2021-01-29] MEDS ORDERED: apixaban 5mg tablet PO SCH (20:00)
[2021-01-29] MEDS: doxazosin mesylate 2mg tablet PO SCH (20:00)
[2021-01-29 22:00] VITALS: BP 142/75
[2021-01-30 02:00] VITALS: BP 142/80
--- NOTE | 2021-01-30 06:20 | NUR ---
Problems reprioritized. Patient report given, questions answered & plan of care reviewed with TABBY White.
[2021-01-30] MEDS: levoTHYROXINE 25mcg tablet PO SCH (07:50)
[2021-01-30] MEDS: pantoprazole 40mg Tablet.DR PO SCH ×2 (07:50→19:38)
[2021-01-30] MEDS: apixaban 5mg tablet PO SCH (07:50)
[2021-01-30] MEDS: modafinil 100mg tablet PO SCH (07:50)
[2021-01-30] MEDS: losartan 50mg tablet PO SCH (07:51)
[2021-01-30] MEDS: carvedilol 6.25mg tablet PO SCH ×2 (07:52→19:38)
[2021-01-30] MEDS: dronedarone hcl 400mg tablet PO SCH ×2 (07:52→19:38)
[2021-01-30] MEDS: sertraline 50mg tablet PO SCH (07:52)
[2021-01-30] MEDS: K and/or MAG REPLACEMENT MC SCH ×2 (08:00→19:26)
[2021-01-30 08:39] LABS: BASOPHILS % (AUTO) 0.8 % (0-1); EOSINOPHILS % (AUTO) 2.2 % (0-6); HEMATOCRIT 33.3 % (35.0-45.0); HEMOGLOBIN 10.8 g/dl (12.0-16.0); LYMPHOCYTES # (AUTO) 0.3 X10'3 (1.1-4.8); LYMPHOCYTES % (AUTO) 22.5 % (21-51); MEAN CORPUSCULAR HEMOGLOBIN 28.1 PG (27.0-31.0); MEAN CORPUSCULAR HGB CONC 32.5 g/dL (33.0-36.5); MEAN CORPUSCULAR VOLUME 86.4 FL (78-98); MEAN PLATELET VOLUME 7.8 FL (7.4-10.4); MONOCYTES # (AUTO) 0.2 X10'3 (0-0.9); MONOCYTES % (AUTO) 15.1 % (2-12); NEUTROPHILS # (AUTO) 0.8 X10'3 (1.8-7.7); NEUTROPHILS % (AUTO) 59.4 % (42-75); PLATELET COUNT 109 X10'3 (140-440); RED BLOOD COUNT 3.86 X10'6 (4.20-5.60); RED CELL DISTRIBUTION WIDTH 14.9 % (11.5-14.5); WHITE BLOOD COUNT 1.4 X10'3 (4.5-11.0)
[2021-01-30 09:05] LABS: ALANINE AMINOTRANSFERASE 7 U/L (12-78); ALBUMIN 2.4 G/DL (3.4-5.0); ALBUMIN/GLOBULIN RATIO 0.7 (1.1-1.5); ALKALINE PHOSPHATASE 63 IU/L (46-116); ANION GAP 12 (8-16); ASPARTATE AMINO TRANSFERASE 12 U/L (10-37); BILIRUBIN,TOTAL 0.3 MG/DL (0.1-1.0); BLOOD UREA NITROGEN 39 MG/DL (7-18); BUN/CREATININE RATIO 18.5 (6.6-38.0); CALCIUM 8.1 MG/DL (8.5-10.1); CHLORIDE 113 MMOL/L (99-107); CREATININE 2.11 MG/DL (0.40-0.90); GLUCOSE 79 MG/DL (70-104); POTASSIUM 4.4 MMOL/L (3.5-5.1); SODIUM 148 MMOL/L (135-145); TOTAL CARBON DIOXIDE 22.8 MMOL/L (24-32); TOTAL PROTEIN 5.7 G/DL (6.4-8.2); eGFR 23 ML/MIN
[2021-01-30 10:00] VITALS: BP 101/59
[2021-01-30] MEDS: sodium chloride 0.45% 1,000 ML IV SCH (11:17)
--- NOTE | 2021-01-30 13:02 | NUR ---
Patient in room ORTHO 4016. I have received report from Doreen MCNAIR and had the opportunity to ask questions and assume patient care.
--- NOTE | 2021-01-30 14:34 | NUR ---
PAGER ID: [phone] MESSAGE: Audra [phone]. Patient Amado Osullivan, 2649K: Lab called that Dr. Thompson and Hans ortega cancelled the C.diffe test .
[2021-01-30] MEDS: loperamide 2mg capsule PO PRN (14:48)
--- NOTE | 2021-01-30 15:02 | NUR ---
PAGER ID: [phone] MESSAGE: [id number], Amado, family member that you tried to call just saying her cell phone is not currently working. Provided with this number to contact: Nikki [phone] dorothy [phone]
[2021-01-30 15:07] LABS: PLATELET ESTIMATE DECREASED; TOTAL CELLS COUNTED 100
[2021-01-30 15:08] LABS: ELLIPTOCYTES 1+
[2021-01-30 16:00] VITALS: BP 125/70
[2021-01-30 18:00] VITALS: BP 135/66
[2021-01-30] MEDS: lactose-reduced food (Ensure Enlive) - 237ml bottle PO SCH (18:00)
--- NOTE | 2021-01-30 18:33 | NUR ---
Problems reprioritized. Patient report given, questions answered & plan of care reviewed with Lucy MCNAIR.
--- NOTE | 2021-01-30 18:37 | NUR ---
Patient in room ORTHO 4016. I have received report from TABBY White and had the opportunity to ask questions and assume patient care.
[2021-01-30] MEDS: doxazosin mesylate 2mg tablet PO SCH (19:38)
[2021-01-30 22:00] VITALS: BP 116/67
[2021-01-31] MEDS: sodium chloride 0.45% 1,000 ML IV SCH ×3 (00:25→22:54)
[2021-01-31 02:00] VITALS: BP 83/47
[2021-01-31 03:00] VITALS: BP 120/72
--- NOTE | 2021-01-31 06:18 | NUR ---
Problems reprioritized. Patient report given, questions answered & plan of care reviewed with TABBY Zhu.
[2021-01-31] MEDS: lactose-reduced food (Ensure Enlive) - 237ml bottle PO SCH ×2 (08:00→13:00)
[2021-01-31] MEDS: K and/or MAG REPLACEMENT MC SCH ×2 (08:00→20:00)
[2021-01-31 08:09] LABS: BASOPHILS % (AUTO) 0.5 % (0-1); EOSINOPHILS % (AUTO) 1.1 % (0-6); HEMATOCRIT 27.4 % (35.0-45.0); HEMOGLOBIN 9.1 g/dl (12.0-16.0); LYMPHOCYTES # (AUTO) 0.5 X10'3 (1.1-4.8); LYMPHOCYTES % (AUTO) 28.4 % (21-51); MEAN CORPUSCULAR HEMOGLOBIN 28.2 PG (27.0-31.0); MEAN CORPUSCULAR HGB CONC 33.3 g/dL (33.0-36.5); MEAN CORPUSCULAR VOLUME 84.9 FL (78-98); MEAN PLATELET VOLUME 8.4 FL (7.4-10.4); MONOCYTES # (AUTO) 0.2 X10'3 (0-0.9); MONOCYTES % (AUTO) 14.2 % (2-12); NEUTROPHILS # (AUTO) 0.9 X10'3 (1.8-7.7); NEUTROPHILS % (AUTO) 55.8 % (42-75); PLATELET COUNT 101 X10'3 (140-440); RED BLOOD COUNT 3.23 X10'6 (4.20-5.60); RED CELL DISTRIBUTION WIDTH 14.9 % (11.5-14.5); WHITE BLOOD COUNT 1.6 X10'3 (4.5-11.0)
[2021-01-31 08:30] LABS: ALANINE AMINOTRANSFERASE 7 U/L (12-78); ALBUMIN 2.1 G/DL (3.4-5.0); ALBUMIN/GLOBULIN RATIO 0.7 (1.1-1.5); ALKALINE PHOSPHATASE 53 IU/L (46-116); ANION GAP 10 (8-16); ASPARTATE AMINO TRANSFERASE 13 U/L (10-37); BILIRUBIN,TOTAL 0.3 MG/DL (0.1-1.0); BLOOD UREA NITROGEN 50 MG/DL (7-18); BUN/CREATININE RATIO 20.5 (6.6-38.0); CALCIUM 7.6 MG/DL (8.5-10.1); CHLORIDE 112 MMOL/L (99-107); CREATININE 2.44 MG/DL (0.40-0.90); GLUCOSE 84 MG/DL (70-104); POTASSIUM 4.2 MMOL/L (3.5-5.1); SODIUM 146 MMOL/L (135-145); TOTAL CARBON DIOXIDE 23.7 MMOL/L (24-32); TOTAL PROTEIN 5.2 G/DL (6.4-8.2); eGFR 19 ML/MIN
[2021-01-31 09:15] LABS: PLATELET ESTIMATE DECREASED; TOTAL CELLS COUNTED 100
[2021-01-31 09:16] LABS: ELLIPTOCYTES FEW
[2021-01-31] MEDS: dronedarone hcl 400mg tablet PO SCH ×2 (09:19→23:51)
[2021-01-31] MEDS: levoTHYROXINE 25mcg tablet PO SCH (09:19)
[2021-01-31] MEDS: sertraline 50mg tablet PO SCH (09:20)
[2021-01-31] MEDS: modafinil 100mg tablet PO SCH (09:20)
[2021-01-31] MEDS: pantoprazole 40mg Tablet.DR PO SCH ×2 (09:20→23:53)
[2021-01-31] MEDS: losartan 50mg tablet PO SCH (09:20)
[2021-01-31] MEDS: carvedilol 6.25mg tablet PO SCH ×2 (09:21→23:52)
--- NOTE | 2021-01-31 09:22 | NUR ---
F/u 01/31: Pt w/ improvement in PO intake, avg 48% x 12 meals on Puree diet and 83% x 3 ONS now meeting needs w/ ONS. If PO intake declines or becomes inconsistent pt may benefit from supplemental TF given malnutrition status. Pt noted to be confused A&O x 1 and requiring total assist w/ meals. LBM 01/30 noted to be diarrhea. No new nutritional interventions implemented at this time. Will continue to monitor. Rec: 1. continue regular/pureed/thin liquids diet per TELEPHONIC NURSE CASE MANAGER/DO recs; full assistance w/ meals; encourage PO 2. Ensure Enlive TIDWM 3. consider appetite stimulant IF DO agreeable given poor PO hx 4. IF PO regresses would benefit from NG nutrition IF within patient's plan of care; IF TF Vital AF at 65ml/hr goal to provide 1560ml volume/day, 1264ml water, 1872 kcals, and 117g protein. 5. IF TF; additional water flush 125ml Q4H 6. IF TF; PALB Q /; daily wts 7. bowel care per rx; consider anti-diarrheal if diarrhea persists 8. weekly wts Addendum: 01/31/21 at [address] Amended: Links added.
[2021-01-31] MEDS: loperamide 2mg capsule PO PRN (13:15)
[2021-01-31 18:00] VITALS: BP 119/69
--- NOTE | 2021-01-31 19:33 | NUR ---
Problems reprioritized. Patient report given, questions answered & plan of care reviewed with Corey MCNAIR.
[2021-01-31 22:00] VITALS: BP 139/77
[2021-01-31] MEDS: doxazosin mesylate 2mg tablet PO SCH (23:51)
[2021-02-01 02:00] VITALS: BP 126/66
[2021-02-01] MEDS: sodium chloride 0.45% 1,000 ML IV SCH (07:47)
[2021-02-01] MEDS: carvedilol 6.25mg tablet PO SCH ×2 (07:48→21:54)
[2021-02-01] MEDS: loperamide 2mg capsule PO PRN (07:48)
[2021-02-01] MEDS: dronedarone hcl 400mg tablet PO SCH ×2 (07:48→21:53)
[2021-02-01] MEDS: pantoprazole 40mg Tablet.DR PO SCH ×2 (07:48→21:54)
[2021-02-01] MEDS: modafinil 100mg tablet PO SCH (07:48)
[2021-02-01] MEDS: losartan 50mg tablet PO SCH (07:48)
[2021-02-01] MEDS: sertraline 50mg tablet PO SCH (07:48)
[2021-02-01] MEDS: levoTHYROXINE 25mcg tablet PO SCH (07:49)
[2021-02-01] MEDS: K and/or MAG REPLACEMENT MC SCH ×2 (08:00→20:00)
[2021-02-01 08:27] LABS: BASOPHILS % (AUTO) 0.6 % (0-1); EOSINOPHILS % (AUTO) 0.7 % (0-6); HEMATOCRIT 31.1 % (35.0-45.0); HEMOGLOBIN 10.2 g/dl (12.0-16.0); LYMPHOCYTES # (AUTO) 0.4 X10'3 (1.1-4.8); LYMPHOCYTES % (AUTO) 19.6 % (21-51); MEAN CORPUSCULAR HEMOGLOBIN 28.1 PG (27.0-31.0); MEAN CORPUSCULAR HGB CONC 32.7 g/dL (33.0-36.5); MEAN CORPUSCULAR VOLUME 85.9 FL (78-98); MEAN PLATELET VOLUME 7.6 FL (7.4-10.4); MONOCYTES # (AUTO) 0.2 X10'3 (0-0.9); MONOCYTES % (AUTO) 9.9 % (2-12); NEUTROPHILS # (AUTO) 1.4 X10'3 (1.8-7.7); NEUTROPHILS % (AUTO) 69.2 % (42-75); PLATELET COUNT 92 X10'3 (140-440); RED BLOOD COUNT 3.62 X10'6 (4.20-5.60); RED CELL DISTRIBUTION WIDTH 15.1 % (11.5-14.5)
[2021-02-01 08:46] LABS: ALANINE AMINOTRANSFERASE 6 U/L (12-78); ALBUMIN 2.1 G/DL (3.4-5.0); ALBUMIN/GLOBULIN RATIO 0.6 (1.1-1.5); ALKALINE PHOSPHATASE 59 IU/L (46-116); ANION GAP 11 (8-16); ASPARTATE AMINO TRANSFERASE 16 U/L (10-37); BILIRUBIN,TOTAL 0.3 MG/DL (0.1-1.0); BLOOD UREA NITROGEN 49 MG/DL (7-18); BUN/CREATININE RATIO 21.8 (6.6-38.0); CALCIUM 7.5 MG/DL (8.5-10.1); CHLORIDE 110 MMOL/L (99-107); CREATININE 2.25 MG/DL (0.40-0.90); GLUCOSE 77 MG/DL (70-104); POTASSIUM 4.8 MMOL/L (3.5-5.1); SODIUM 143 MMOL/L (135-145); TOTAL CARBON DIOXIDE 22.2 MMOL/L (24-32); TOTAL PROTEIN 5.5 G/DL (6.4-8.2); eGFR 21 ML/MIN
[2021-02-01 09:46] LABS: PLATELET ESTIMATE DECREASED; TOTAL CELLS COUNTED 100
[2021-02-01 10:00] VITALS: BP 118/62
[2021-02-01 14:00] VITALS: BP 118/64
[2021-02-01] MEDS: nystatin 15 GM powder TP SCH ×2 (16:32→22:24)
--- NOTE | 2021-02-01 17:45 | NUR ---
Patient in room ORTHO 4016. I have received report from Corey MCNAIR and had the opportunity to ask questions and assume patient care.
[2021-02-01 18:00] VITALS: BP 103/60
[2021-02-01] MEDS: lactose-reduced food (Ensure Enlive) - 237ml bottle PO SCH (18:00)
--- NOTE | 2021-02-01 19:14 | NUR ---
Problems reprioritized. Patient report given, questions answered & plan of care reviewed with Corey MCNAIR.
[2021-02-01] MEDS: doxazosin mesylate 2mg tablet PO SCH (21:54)
[2021-02-02] MEDS: sodium chloride 0.45% 1,000 ML IV SCH ×2 (05:44→12:30)
[2021-02-02 06:00] VITALS: BP 75/41
--- NOTE | 2021-02-02 07:08 | NUR ---
Patient in room ORTHO 4016. I have received report from TABBY HOLBROOK and had the opportunity to ask questions and assume patient care.
[2021-02-02] MEDS: K and/or MAG REPLACEMENT MC SCH ×2 (08:00→20:00)
[2021-02-02] MEDS: dronedarone hcl 400mg tablet PO SCH ×2 (08:35→20:52)
[2021-02-02] MEDS: pantoprazole 40mg Tablet.DR PO SCH ×2 (08:35→20:52)
[2021-02-02] MEDS: modafinil 100mg tablet PO SCH (08:36)
[2021-02-02] MEDS: sertraline 50mg tablet PO SCH (08:36)
[2021-02-02] MEDS: levoTHYROXINE 25mcg tablet PO SCH (08:37)
[2021-02-02] MEDS: nystatin 15 GM powder TP SCH ×3 (08:37→20:53)
[2021-02-02] MEDS: lactose-reduced food (Ensure Enlive) - 237ml bottle PO SCH ×3 (08:38→18:05)
[2021-02-02] MEDS: carvedilol 6.25mg tablet PO SCH ×2 (08:39→20:52)
[2021-02-02] MEDS: losartan 50mg tablet PO SCH (08:39)
[2021-02-02 09:04] LABS: BASOPHILS % (AUTO) 0.5 % (0-1); EOSINOPHILS % (AUTO) 0.8 % (0-6); HEMATOCRIT 27.5 % (35.0-45.0); LYMPHOCYTES # (AUTO) 0.5 X10'3 (1.1-4.8); LYMPHOCYTES % (AUTO) 23.3 % (21-51); MEAN CORPUSCULAR HGB CONC 32.7 g/dL (33.0-36.5); MEAN CORPUSCULAR VOLUME 85.6 FL (78-98); MEAN PLATELET VOLUME 8.5 FL (7.4-10.4); MONOCYTES # (AUTO) 0.2 X10'3 (0-0.9); MONOCYTES % (AUTO) 9.7 % (2-12); NEUTROPHILS # (AUTO) 1.4 X10'3 (1.8-7.7); NEUTROPHILS % (AUTO) 65.7 % (42-75); PLATELET COUNT 92 X10'3 (140-440); RED BLOOD COUNT 3.21 X10'6 (4.20-5.60); RED CELL DISTRIBUTION WIDTH 15.6 % (11.5-14.5); WHITE BLOOD COUNT 2.1 X10'3 (4.5-11.0)
[2021-02-02 09:44] LABS: ALBUMIN/GLOBULIN RATIO 0.6 (1.1-1.5); ALKALINE PHOSPHATASE 56 IU/L (46-116); ANION GAP 10 (8-16); ASPARTATE AMINO TRANSFERASE 11 U/L (10-37); BILIRUBIN,TOTAL 0.3 MG/DL (0.1-1.0); BLOOD UREA NITROGEN 62 MG/DL (7-18); BUN/CREATININE RATIO 23.9 (6.6-38.0); CALCIUM 7.5 MG/DL (8.5-10.1); CHLORIDE 109 MMOL/L (99-107); CREATININE 2.59 MG/DL (0.40-0.90); GLUCOSE 84 MG/DL (70-104); POTASSIUM 4.6 MMOL/L (3.5-5.1); SODIUM 140 MMOL/L (135-145); TOTAL CARBON DIOXIDE 20.7 MMOL/L (24-32); TOTAL PROTEIN 5.2 G/DL (6.4-8.2); eGFR 18 ML/MIN
[2021-02-02 09:54] LABS: ALANINE AMINOTRANSFERASE < 6 U/L (12-78)
[2021-02-02 10:03] LABS: TOTAL CELLS COUNTED 100
[2021-02-02 10:04] LABS: PLATELET ESTIMATE DECREASED
[2021-02-02 10:05] LABS: ELLIPTOCYTES 1+; TEAR DROP CELLS FEW
[2021-02-02 10:06] LABS: ROULEAUX 1+; SCHISTOCYTES FEW
[2021-02-02 14:00] VITALS: BP 116/65
[2021-02-02 18:00] VITALS: BP 137/45
--- NOTE | 2021-02-02 18:35 | NUR ---
Patient in room ORTHO 4016. I have received report from TABBY Oliver and had the opportunity to ask questions and assume patient care.
[2021-02-02] MEDS: dexamethasone inj 6 MG in normal saline 50ml IV soln 50 ML IV SCH (20:52)
[2021-02-02] MEDS: doxazosin mesylate 2mg tablet PO SCH (20:52)
[2021-02-02 22:00] VITALS: BP 91/58
[2021-02-03] MEDS: sodium chloride 0.45% 1,000 ML IV SCH ×2 (01:29→13:30)
[2021-02-03 02:00] VITALS: BP 131/74
--- NOTE | 2021-02-03 06:23 | NUR ---
Problems reprioritized. Patient report given, questions answered & plan of care reviewed with TABBY Reddy.
[2021-02-03 07:02] VITALS: BP 120/71
--- NOTE | 2021-02-03 07:03 | NUR ---
Patient in room ORTHO 4016. I have received report from Julianna MCNAIR and had the opportunity to ask questions and assume patient care.
[2021-02-03 07:59] LABS: BASOPHILS % (AUTO) 0.3 % (0-1); EOSINOPHILS % (AUTO) 0.1 % (0-6); HEMATOCRIT 28.5 % (35.0-45.0); HEMOGLOBIN 9.3 g/dl (12.0-16.0); LYMPHOCYTES # (AUTO) 0.2 X10'3 (1.1-4.8); MEAN CORPUSCULAR HEMOGLOBIN 27.9 PG (27.0-31.0); MEAN CORPUSCULAR HGB CONC 32.5 g/dL (33.0-36.5); MEAN CORPUSCULAR VOLUME 85.7 FL (78-98); MEAN PLATELET VOLUME 8.1 FL (7.4-10.4); MONOCYTES # (AUTO) 0.1 X10'3 (0-0.9); MONOCYTES % (AUTO) 4.9 % (2-12); NEUTROPHILS # (AUTO) 1.5 X10'3 (1.8-7.7); NEUTROPHILS % (AUTO) 83.7 % (42-75); PLATELET COUNT 107 X10'3 (140-440); RED BLOOD COUNT 3.33 X10'6 (4.20-5.60); RED CELL DISTRIBUTION WIDTH 15.4 % (11.5-14.5); WHITE BLOOD COUNT 1.8 X10'3 (4.5-11.0)
[2021-02-03] MEDS: lactose-reduced food (Ensure Enlive) - 237ml bottle PO SCH ×3 (08:00→18:00)
[2021-02-03] MEDS: nystatin 15 GM powder TP SCH (08:00)
[2021-02-03] MEDS: K and/or MAG REPLACEMENT MC SCH ×2 (08:00→20:00)
[2021-02-03 08:27] LABS: ALBUMIN 2.1 G/DL (3.4-5.0); ALBUMIN/GLOBULIN RATIO 0.6 (1.1-1.5); ALKALINE PHOSPHATASE 59 IU/L (46-116); ANION GAP 11 (8-16); ASPARTATE AMINO TRANSFERASE 12 U/L (10-37); BILIRUBIN,TOTAL 0.3 MG/DL (0.1-1.0); BLOOD UREA NITROGEN 66 MG/DL (7-18); BUN/CREATININE RATIO 26.7 (6.6-38.0); C-REACTIVE PROTEIN 13.37 MG/DL (0.0-0.5); CALCIUM 7.7 MG/DL (8.5-10.1); CHLORIDE 109 MMOL/L (99-107); CREATININE 2.47 MG/DL (0.40-0.90); GLUCOSE 130 MG/DL (70-104); POTASSIUM 5.1 MMOL/L (3.5-5.1); SODIUM 139 MMOL/L (135-145); TOTAL CARBON DIOXIDE 19.1 MMOL/L (24-32); TOTAL PROTEIN 5.7 G/DL (6.4-8.2); eGFR 19 ML/MIN
[2021-02-03 08:29] LABS: ALANINE AMINOTRANSFERASE < 6 U/L (12-78)
[2021-02-03 08:51] LABS: D-DIMER 1.99 MG/L FEU (0-0.50)
[2021-02-03 09:07] LABS: TOTAL CELLS COUNTED 100
[2021-02-03 09:08] LABS: PLATELET ESTIMATE DECREASED
[2021-02-03 09:09] LABS: ELLIPTOCYTES FEW; TEAR DROP CELLS FEW
[2021-02-03] MEDS: sertraline 50mg tablet PO SCH (09:30)
[2021-02-03] MEDS: dexamethasone inj 6 MG in normal saline 50ml IV soln 50 ML IV SCH ×2 (09:30→20:24)
[2021-02-03] MEDS: pantoprazole 40mg Tablet.DR PO SCH ×2 (09:30→20:24)
[2021-02-03] MEDS: dronedarone hcl 400mg tablet PO SCH ×2 (09:30→20:24)
[2021-02-03] MEDS: modafinil 100mg tablet PO SCH (09:30)
[2021-02-03] MEDS: losartan 50mg tablet PO SCH (09:30)
[2021-02-03] MEDS: levoTHYROXINE 25mcg tablet PO SCH (09:30)
[2021-02-03] MEDS: carvedilol 6.25mg tablet PO SCH ×2 (09:31→20:24)
--- NOTE | 2021-02-03 10:47 | NUR ---
PRESSURE ULCER EDUCATION: DEFINITION: A pressure ulcer is an area of skin that breaks down when you stay in one position too long. The constant pressure against the skin reduces the blood flow to that area and the affected tissue dies. CAUSES: "Being bedridden or in a wheelchair "Fragile skin "Having a chronic condition, such as diabetes or vascular disease "Inability to move certain parts of your body without assistance "Older age "Incontinence of urine or stool SYMPTOMS: "A reddened area that DOES NOT turn white when pressed on - this can be the beginning of a pressure ulcer "A blister, deep sore or a crater - these can be advanced pressure ulcers FIRST AID: "Relieve the pressure on this area "Keep the area clean and dry "Call your primary doctor if you see any of the above symptoms "DO NOT massage the area "DO NOT use a donut shaped or ring shaped pillow- these actually interfere with the blood flow and cause complications PREVENTION: "Check for pressure ulcers everyday "Change position at least every two hours to relieve pressure "Use items that help relieve pressure- pillows, sheepskin, foam padding, and powders. "Keep skin clean and dry "Eat healthy well balanced meals "Exercise daily IF YOU SEE ANY OF THESE SYMPTOMS WHILE IN THE HOSPITAL - TELL YOUR NURSE IMMEDIATELY. IF YOU SEE ANY OF THESE SYMPTOMS WHILE AT HOME OR HAVE ANY QUESTIONS OR CONCERNS ABOUT PRESSURE ULCERS - CALL YOUR PRIMARY DOCTOR IMMEDIATELY. Addendum: 02/03/21 at 1047 by Katharine Lo RN Amended: Links added.
[2021-02-03 10:49] VITALS: BP 144/75
[2021-02-03] MEDS: loperamide 2mg capsule PO PRN (14:36)
[2021-02-03] MEDS ORDERED: ALBUTEROL INHALER 1 PUFF/90 MCG INHALER IH PRN (15:55)
[2021-02-03 18:00] VITALS: BP 152/84
--- NOTE | 2021-02-03 18:44 | NUR ---
Problems reprioritized. Patient report given, questions answered & plan of care reviewed with Brii MCNAIR.
--- NOTE | 2021-02-03 18:45 | NUR ---
Patient in room ORTHO 4016. I have received report from Maureen MCNAIR and had the opportunity to ask questions and assume patient care.
[2021-02-03] MEDS: doxazosin mesylate 2mg tablet PO SCH (20:24)
[2021-02-03] MEDS: loperamide 2mg capsule PO SCH (20:24)
[2021-02-03 22:00] VITALS: BP 127/74
[2021-02-04 02:00] VITALS: BP 114/58
[2021-02-04] MEDS: loperamide 2mg capsule PO SCH ×4 (02:11→19:53)
[2021-02-04 06:33] VITALS: BP 125/69
--- NOTE | 2021-02-04 06:33 | NUR ---
Patient in room ORTHO 4016. I have received report from Brii MCNAIR and had the opportunity to ask questions and assume patient care.
--- NOTE | 2021-02-04 06:35 | NUR ---
Problems reprioritized. Patient report given, questions answered & plan of care reviewed with Maureen MCNAIR.
[2021-02-04] MEDS: carvedilol 6.25mg tablet PO SCH ×2 (08:00→19:52)
[2021-02-04] MEDS: K and/or MAG REPLACEMENT MC SCH ×2 (08:00→19:43)
[2021-02-04] MEDS: dexamethasone inj 6 MG in normal saline 50ml IV soln 50 ML IV SCH ×2 (08:22→19:52)
[2021-02-04] MEDS: pantoprazole 40mg Tablet.DR PO SCH ×2 (08:23→19:52)
[2021-02-04] MEDS: modafinil 100mg tablet PO SCH (08:23)
[2021-02-04] MEDS: dronedarone hcl 400mg tablet PO SCH ×2 (08:23→19:53)
[2021-02-04] MEDS: sertraline 50mg tablet PO SCH (08:23)
[2021-02-04] MEDS: losartan 50mg tablet PO SCH (08:23)
[2021-02-04] MEDS: levoTHYROXINE 25mcg tablet PO SCH (08:23)
[2021-02-04] MEDS: lactose-reduced food (Ensure Enlive) - 237ml bottle PO SCH ×3 (08:23→18:00)
[2021-02-04] MEDS ORDERED: REMDESIVIR INJ 200 MG in normal saline 100ml IV soln 60 ML IV ONE (09:15)
[2021-02-04 09:24] LABS: D-DIMER 1.93 MG/L FEU (0-0.50)
[2021-02-04 10:11] VITALS: BP 143/65
[2021-02-04 10:12] LABS: BASOPHILS % (AUTO) 0.2 % (0-1); EOSINOPHILS % (AUTO) 0 % (0-6); HEMOGLOBIN 9.6 g/dl (12.0-16.0); LYMPHOCYTES # (AUTO) 0.2 X10'3 (1.1-4.8); LYMPHOCYTES % (AUTO) 9.6 % (21-51); MEAN CORPUSCULAR HEMOGLOBIN 27.9 PG (27.0-31.0); MEAN CORPUSCULAR HGB CONC 33.1 g/dL (33.0-36.5); MEAN CORPUSCULAR VOLUME 84.3 FL (78-98); MEAN PLATELET VOLUME 7.3 FL (7.4-10.4); MONOCYTES # (AUTO) 0.1 X10'3 (0-0.9); MONOCYTES % (AUTO) 6.5 % (2-12); NEUTROPHILS # (AUTO) 1.9 X10'3 (1.8-7.7); NEUTROPHILS % (AUTO) 83.7 % (42-75); PLATELET COUNT 120 X10'3 (140-440); RED BLOOD COUNT 3.44 X10'6 (4.20-5.60); RED CELL DISTRIBUTION WIDTH 15.2 % (11.5-14.5); WHITE BLOOD COUNT 2.3 X10'3 (4.5-11.0)
[2021-02-04 10:16] LABS: ALANINE AMINOTRANSFERASE 10 U/L (12-78); ALBUMIN 2.1 G/DL (3.4-5.0); ALBUMIN/GLOBULIN RATIO 0.5 (1.1-1.5); ALKALINE PHOSPHATASE 58 IU/L (46-116); ANION GAP 11 (8-16); ASPARTATE AMINO TRANSFERASE 14 U/L (10-37); BILIRUBIN,TOTAL 0.3 MG/DL (0.1-1.0); BLOOD UREA NITROGEN 67 MG/DL (7-18); BUN/CREATININE RATIO 28.5 (6.6-38.0); CHLORIDE 111 MMOL/L (99-107); CREATININE 2.35 MG/DL (0.40-0.90); GLUCOSE 147 MG/DL (70-104); POTASSIUM 4.9 MMOL/L (3.5-5.1); SODIUM 143 MMOL/L (135-145); TOTAL CARBON DIOXIDE 21.5 MMOL/L (24-32); eGFR 20 ML/MIN
[2021-02-04 11:19] LABS: PLATELET ESTIMATE DECREASED; TOTAL CELLS COUNTED 100
[2021-02-04 11:20] LABS: ELLIPTOCYTES FEW; LARGE PLATELETS FEW; SCHISTOCYTES FEW
[2021-02-04] MEDS: acetaminophen 325mg tablet PO PRN (12:52)
[2021-02-04 14:24] VITALS: BP 139/79
[2021-02-04] MEDS ORDERED: furosemide 40mg/4ml inj IV ONE (15:00)
--- NOTE | 2021-02-04 15:05 | NUR ---
F/u 02/04: Pt PO continues to fluctuate declining past 4 days w/ ALOC. PO ~0-25% avg meals past 4 days w/ ~50% avg Ensure Enlive TIDWM partially meeting needs. AOx1 per receiving total assistance w/ meals on 5L nasal cannula per EMR. LBM 02/03 receiving Q6H imodium for diarrhea. Will continue to monitor PO hx and additional nutrition intervention needs. Rec: 1. continue regular/pureed/thin liquids diet per CIVIL ENGINEER IN TRAINING/DO recs; full assistance w/ meals; encourage PO 2. Ensure Enlive TIDWM; encourage PO 3. consider appetite stimulant IF DO agreeable given poor PO hx 4. IF PO regresses would benefit from NG nutrition IF within patient's plan of care; IF TF Vital AF at 65ml/hr goal to provide 1560ml volume/day, 1264ml water, 1872 kcals, and 117g protein. 5. IF TF; additional water flush 125ml Q4H 6. bowel care per rx; routine anti-diarrheal per DO 7. weekly wts Addendum: 02/04/21 at [address] Amended: Links added.
[2021-02-04 17:07] VITALS: BP 147/86
--- NOTE | 2021-02-04 18:13 | NUR ---
Problems reprioritized. Patient report given, questions answered & plan of care reviewed with Brii MCNAIR.
--- NOTE | 2021-02-04 18:21 | NUR ---
Patient in room ORTHO 4016. I have received report from Maureen MCNAIR and had the opportunity to ask questions and assume patient care.
[2021-02-04] MEDS: doxazosin mesylate 2mg tablet PO SCH (19:53)
[2021-02-04 22:00] VITALS: BP 145/84
[2021-02-05 02:00] VITALS: BP 134/76
[2021-02-05] MEDS: loperamide 2mg capsule PO SCH ×5 (02:10→19:30)
[2021-02-05 06:00] VITALS: BP 147/84
--- NOTE | 2021-02-05 06:35 | NUR ---
Problems reprioritized. Patient report given, questions answered & plan of care reviewed with Zohreh MCNAIR.
[2021-02-05] MEDS ORDERED: REMDESIVIR INJ 100 MG in normal saline 100ml IV soln 80 ML IV SCH (08:00)
[2021-02-05] MEDS ORDERED: apixaban 5mg tablet PO SCH (08:00)
[2021-02-05] MEDS: K and/or MAG REPLACEMENT MC SCH ×2 (08:00→18:59)
[2021-02-05] MEDS: levoTHYROXINE 25mcg tablet PO SCH (08:11)
[2021-02-05] MEDS: dronedarone hcl 400mg tablet PO SCH ×2 (08:11→20:00)
[2021-02-05] MEDS: modafinil 100mg tablet PO SCH (08:12)
[2021-02-05] MEDS: losartan 50mg tablet PO SCH (08:12)
[2021-02-05] MEDS: carvedilol 6.25mg tablet PO SCH ×2 (08:12→19:10)
[2021-02-05] MEDS: lactose-reduced food (Ensure Enlive) - 237ml bottle PO SCH ×3 (08:13→18:58)
[2021-02-05] MEDS: pantoprazole 40mg Tablet.DR PO SCH ×2 (08:13→19:10)
[2021-02-05] MEDS: dexamethasone inj 6 MG in normal saline 50ml IV soln 50 ML IV SCH ×2 (08:15→19:10)
[2021-02-05] MEDS: sertraline 50mg tablet PO SCH (08:23)
[2021-02-05 08:39] LABS: D-DIMER 3.46 MG/L FEU (0-0.50)
[2021-02-05] MEDS ORDERED: furosemide 20 MG/2 ML vial IV ONE (08:40)
[2021-02-05 10:00] VITALS: BP 135/81
[2021-02-05 12:21] LABS: BASOPHILS % (AUTO) 0.2 % (0-1); EOSINOPHILS % (AUTO) 0 % (0-6); HEMATOCRIT 31.2 % (35.0-45.0); HEMOGLOBIN 10.5 g/dl (12.0-16.0); LYMPHOCYTES # (AUTO) 0.2 X10'3 (1.1-4.8); LYMPHOCYTES % (AUTO) 5.7 % (21-51); MEAN CORPUSCULAR HEMOGLOBIN 27.9 PG (27.0-31.0); MEAN CORPUSCULAR HGB CONC 33.5 g/dL (33.0-36.5); MEAN CORPUSCULAR VOLUME 83.3 FL (78-98); MEAN PLATELET VOLUME 7.5 FL (7.4-10.4); MONOCYTES # (AUTO) 0.2 X10'3 (0-0.9); MONOCYTES % (AUTO) 6.3 % (2-12); NEUTROPHILS # (AUTO) 2.9 X10'3 (1.8-7.7); NEUTROPHILS % (AUTO) 87.8 % (42-75); PLATELET COUNT 174 X10'3 (140-440); RED BLOOD COUNT 3.75 X10'6 (4.20-5.60); RED CELL DISTRIBUTION WIDTH 15.3 % (11.5-14.5); WHITE BLOOD COUNT 3.3 X10'3 (4.5-11.0)
[2021-02-05] MEDS: dronabinol 2.5mg capsule PO SCH ×2 (12:31→18:02)
[2021-02-05 12:38] LABS: ALANINE AMINOTRANSFERASE 9 U/L (12-78); ALBUMIN 2.3 G/DL (3.4-5.0); ALBUMIN/GLOBULIN RATIO 0.5 (1.1-1.5); ALKALINE PHOSPHATASE 61 IU/L (46-116); ANION GAP 11 (8-16); ASPARTATE AMINO TRANSFERASE 12 U/L (10-37); BILIRUBIN,TOTAL 0.3 MG/DL (0.1-1.0); BLOOD UREA NITROGEN 78 MG/DL (7-18); BUN/CREATININE RATIO 33.5 (6.6-38.0); CALCIUM 8.5 MG/DL (8.5-10.1); CHLORIDE 109 MMOL/L (99-107); CREATININE 2.33 MG/DL (0.40-0.90); GLUCOSE 149 MG/DL (70-104); POTASSIUM 4.8 MMOL/L (3.5-5.1); SODIUM 143 MMOL/L (135-145); TOTAL CARBON DIOXIDE 23.4 MMOL/L (24-32); TOTAL PROTEIN 6.6 G/DL (6.4-8.2); eGFR 20 ML/MIN
[2021-02-05 15:17] VITALS: BP 120/70
[2021-02-05 18:00] VITALS: BP 134/83
--- NOTE | 2021-02-05 18:37 | NUR ---
Problems reprioritized. Patient report given, questions answered & plan of care reviewed with TABBY Vasquez.
[2021-02-05] MEDS: doxazosin mesylate 2mg tablet PO SCH (19:10)
[2021-02-05] MEDS: furosemide 20 MG/2 ML vial IV SCH (19:10)
[2021-02-05 22:00] VITALS: BP 129/69
[2021-02-06 02:00] VITALS: BP 166/93
--- NOTE | 2021-02-06 06:42 | NUR ---
Patient in room ORTHO 4016. I have received report from Christina MCNAIR and had the opportunity to ask questions and assume patient care.
[2021-02-06 06:43] VITALS: BP 143/96
[2021-02-06] MEDS: modafinil 100mg tablet PO SCH (07:50)
[2021-02-06] MEDS: levoTHYROXINE 25mcg tablet PO SCH (07:50)
[2021-02-06] MEDS: dexamethasone inj 6 MG in normal saline 50ml IV soln 50 ML IV SCH ×2 (07:50→19:52)
[2021-02-06] MEDS: sertraline 50mg tablet PO SCH (07:50)
[2021-02-06] MEDS: pantoprazole 40mg Tablet.DR PO SCH ×2 (07:50→19:52)
[2021-02-06] MEDS: loperamide 2mg capsule PO SCH ×4 (07:50→19:56)
[2021-02-06] MEDS: carvedilol 6.25mg tablet PO SCH ×2 (07:51→19:52)
[2021-02-06] MEDS: losartan 50mg tablet PO SCH (07:51)
[2021-02-06] MEDS: furosemide 20 MG/2 ML vial IV SCH ×2 (07:51→19:52)
[2021-02-06] MEDS: K and/or MAG REPLACEMENT MC SCH ×2 (08:00→19:34)
[2021-02-06] MEDS: lactose-reduced food (Ensure Enlive) - 237ml bottle PO SCH ×3 (08:00→18:00)
[2021-02-06] MEDS: dronabinol 2.5mg capsule PO SCH ×3 (08:09→17:39)
[2021-02-06] MEDS: dronedarone hcl 400mg tablet PO SCH ×2 (08:09→19:52)
[2021-02-06 09:32] LABS: BASOPHILS % (AUTO) 0.2 % (0-1); EOSINOPHILS % (AUTO) 0.1 % (0-6); HEMATOCRIT 31.7 % (35.0-45.0); HEMOGLOBIN 10.5 g/dl (12.0-16.0); LYMPHOCYTES # (AUTO) 0.3 X10'3 (1.1-4.8); LYMPHOCYTES % (AUTO) 9.2 % (21-51); MEAN CORPUSCULAR HEMOGLOBIN 27.7 PG (27.0-31.0); MEAN CORPUSCULAR HGB CONC 33.1 g/dL (33.0-36.5); MEAN CORPUSCULAR VOLUME 83.7 FL (78-98); MONOCYTES # (AUTO) 0.2 X10'3 (0-0.9); NEUTROPHILS # (AUTO) 2.3 X10'3 (1.8-7.7); NEUTROPHILS % (AUTO) 83.5 % (42-75); PLATELET COUNT 179 X10'3 (140-440); RED BLOOD COUNT 3.79 X10'6 (4.20-5.60); RED CELL DISTRIBUTION WIDTH 15.3 % (11.5-14.5); WHITE BLOOD COUNT 2.8 X10'3 (4.5-11.0)
[2021-02-06 09:55] LABS: ALANINE AMINOTRANSFERASE 10 U/L (12-78); ALBUMIN 2.4 G/DL (3.4-5.0); ALBUMIN/GLOBULIN RATIO 0.6 (1.1-1.5); ALKALINE PHOSPHATASE 62 IU/L (46-116); ASPARTATE AMINO TRANSFERASE 9 U/L (10-37); BILIRUBIN,TOTAL 0.3 MG/DL (0.1-1.0); BLOOD UREA NITROGEN 81 MG/DL (7-18); BUN/CREATININE RATIO 37.3 (6.6-38.0); C-REACTIVE PROTEIN 4.37 MG/DL (0.0-0.5); CALCIUM 8.5 MG/DL (8.5-10.1); CREATININE 2.17 MG/DL (0.40-0.90); GLUCOSE 97 MG/DL (70-104); POTASSIUM 4.8 MMOL/L (3.5-5.1); TOTAL PROTEIN 6.6 G/DL (6.4-8.2); eGFR 22 ML/MIN
[2021-02-06 09:57] LABS: ANION GAP 8 (8-16); CHLORIDE 108 MMOL/L (99-107); D-DIMER 5.21 MG/L FEU (0-0.50); SODIUM 145 MMOL/L (135-145)
[2021-02-06 11:33] VITALS: BP 169/93
[2021-02-06 13:05] LABS: PLATELET ESTIMATE NORMAL; TOTAL CELLS COUNTED 100
[2021-02-06 13:06] LABS: ELLIPTOCYTES 1+; SCHISTOCYTES FEW
[2021-02-06 15:04] VITALS: BP 130/76
--- NOTE | 2021-02-06 16:53 | NUR ---
Supplied patient with geomat while sitting in chair
[2021-02-06 18:00] VITALS: BP 114/74
--- NOTE | 2021-02-06 18:27 | NUR ---
Problems reprioritized. Patient report given, questions answered & plan of care reviewed with Christina MCNAIR.
[2021-02-06] MEDS: doxazosin mesylate 2mg tablet PO SCH (19:51)
[2021-02-06 22:00] VITALS: BP 90/55
[2021-02-07] VITALS (7 sets, daily range): BP systolic 108–153; BP diastolic 56–86
--- NOTE | 2021-02-07 06:14 | NUR ---
Problems reprioritized. Patient report given, questions answered & plan of care reviewed with Melody MCNAIR.
--- NOTE | 2021-02-07 06:34 | NUR ---
Patient in room [facility] 4016. I have received report from TABBY FLORES and had the opportunity to ask questions and assume patient care.
[2021-02-07] MEDS: dronabinol 2.5mg capsule PO SCH ×3 (07:00→16:12)
[2021-02-07] MEDS: furosemide 20 MG/2 ML vial IV SCH ×2 (07:19→20:58)
[2021-02-07] MEDS: dexamethasone inj 6 MG in normal saline 50ml IV soln 50 ML IV SCH ×2 (07:19→20:59)
[2021-02-07] MEDS: dronedarone hcl 400mg tablet PO SCH ×2 (07:19→20:58)
[2021-02-07] MEDS: pantoprazole 40mg Tablet.DR PO SCH ×2 (07:20→21:01)
[2021-02-07] MEDS: sertraline 50mg tablet PO SCH (07:20)
[2021-02-07] MEDS: loperamide 2mg capsule PO SCH ×3 (07:20→21:01)
[2021-02-07] MEDS: levoTHYROXINE 25mcg tablet PO SCH (07:20)
[2021-02-07] MEDS: modafinil 100mg tablet PO SCH (07:20)
[2021-02-07] MEDS: losartan 50mg tablet PO SCH (07:23)
[2021-02-07] MEDS: carvedilol 6.25mg tablet PO SCH ×2 (07:23→20:58)
[2021-02-07 07:56] LABS: BASOPHILS % (AUTO) 0 % (0-1); EOSINOPHILS % (AUTO) 0.1 % (0-6); HEMATOCRIT 30.9 % (35.0-45.0); HEMOGLOBIN 10.4 g/dl (12.0-16.0); LYMPHOCYTES # (AUTO) 0.3 X10'3 (1.1-4.8); LYMPHOCYTES % (AUTO) 9.7 % (21-51); MEAN CORPUSCULAR HGB CONC 33.6 g/dL (33.0-36.5); MEAN CORPUSCULAR VOLUME 83.4 FL (78-98); MEAN PLATELET VOLUME 8.2 FL (7.4-10.4); MONOCYTES # (AUTO) 0.2 X10'3 (0-0.9); MONOCYTES % (AUTO) 6.5 % (2-12); NEUTROPHILS # (AUTO) 2.3 X10'3 (1.8-7.7); NEUTROPHILS % (AUTO) 83.7 % (42-75); PLATELET COUNT 166 X10'3 (140-440); RED BLOOD COUNT 3.71 X10'6 (4.20-5.60); RED CELL DISTRIBUTION WIDTH 15.4 % (11.5-14.5); WHITE BLOOD COUNT 2.8 X10'3 (4.5-11.0)
[2021-02-07] MEDS: lactose-reduced food (Ensure Enlive) - 237ml bottle PO SCH ×3 (08:00→18:14)
[2021-02-07] MEDS: K and/or MAG REPLACEMENT MC SCH ×2 (08:00→20:00)
[2021-02-07 08:13] LABS: D-DIMER 5.58 MG/L FEU (0-0.50)
[2021-02-07 08:14] LABS: ALANINE AMINOTRANSFERASE 10 U/L (12-78); ALBUMIN 2.4 G/DL (3.4-5.0); ALBUMIN/GLOBULIN RATIO 0.6 (1.1-1.5); ALKALINE PHOSPHATASE 64 IU/L (46-116); ANION GAP 8 (8-16); ASPARTATE AMINO TRANSFERASE 12 U/L (10-37); BILIRUBIN,TOTAL 0.3 MG/DL (0.1-1.0); BLOOD UREA NITROGEN 96 MG/DL (7-18); BUN/CREATININE RATIO 39.5 (6.6-38.0); C-REACTIVE PROTEIN 3.22 MG/DL (0.0-0.5); CALCIUM 8.3 MG/DL (8.5-10.1); CHLORIDE 107 MMOL/L (99-107); CREATININE 2.43 MG/DL (0.40-0.90); GLUCOSE 120 MG/DL (70-104); POTASSIUM 5.2 MMOL/L (3.5-5.1); SODIUM 142 MMOL/L (135-145); TOTAL CARBON DIOXIDE 27.1 MMOL/L (24-32); TOTAL PROTEIN 6.4 G/DL (6.4-8.2); eGFR 19 ML/MIN
--- NOTE | 2021-02-07 09:14 | NUR ---
F/u 02/07: PO intake remains low, avg 19% x 9 meals on Puree diet though is up to 50% 01/07 once appetite stimulant was started. Pt also consuming 87% x 8 ONS likely meeting minimum nutrient needs at current PO. Pt documented as A&O zx 2 and confused requiring total assist w/ meals. LBM 02/05 receiving routine imodium for diarrhea. No new nutrition intervention implemented at this time, will continue to monitor. Rec: 1. continue regular/pureed/thin liquids diet per PYROTECHNIC MIXER/DO recs; full assistance w/ meals; encourage PO 2. Ensure Enlive TIDWM; encourage PO 3. Continue appetite stimulant per DO 4. IF PO regresses would benefit from NG nutrition IF within patient's plan of care; IF TF Vital AF at 65ml/hr goal to provide 1560ml volume/day, 1264ml water, 1872 kcals, and 117g protein. 5. IF TF; additional water flush 125ml Q4H 6. bowel care per rx; routine anti-diarrheal per DO 7. weekly wts Addendum: 02/07/21 at [address] Amended: Links added.
[2021-02-07 09:51] LABS: ELLIPTOCYTES 1+; PLATELET ESTIMATE NORMAL; TOTAL CELLS COUNTED 100
[2021-02-07 09:52] LABS: POIKILOCYTOSIS FEW
--- NOTE | 2021-02-07 18:53 | NUR ---
Problems reprioritized. Patient report given, questions answered & plan of care reviewed with césar marshall.
[2021-02-07] MEDS: doxazosin mesylate 2mg tablet PO SCH (20:58)
[2021-02-07] MEDS: enoxaparin 30mg/0.3ml syringe SUBCUT SCH (20:58)
[2021-02-08] MEDS: loperamide 2mg capsule PO SCH ×4 (01:25→21:40)
[2021-02-08 02:00] VITALS: BP 123/69
[2021-02-08 06:00] VITALS: BP 164/86
--- NOTE | 2021-02-08 06:14 | NUR ---
Patient in room [facility] 4016. I have received report from TABBY GARCIA and had the opportunity to ask questions and assume patient care.
[2021-02-08] MEDS: furosemide 20 MG/2 ML vial IV SCH (07:34)
[2021-02-08] MEDS: enoxaparin 30mg/0.3ml syringe SUBCUT SCH ×2 (07:34→21:42)
[2021-02-08] MEDS: sertraline 50mg tablet PO SCH (07:34)
[2021-02-08] MEDS: dronedarone hcl 400mg tablet PO SCH ×2 (07:34→21:41)
[2021-02-08] MEDS: dexamethasone inj 6 MG in normal saline 50ml IV soln 50 ML IV SCH ×2 (07:34→23:10)
[2021-02-08] MEDS: levoTHYROXINE 25mcg tablet PO SCH (07:34)
[2021-02-08] MEDS: modafinil 100mg tablet PO SCH (07:34)
[2021-02-08] MEDS: pantoprazole 40mg Tablet.DR PO SCH ×2 (07:35→21:40)
[2021-02-08] MEDS: carvedilol 6.25mg tablet PO SCH ×2 (07:36→21:40)
[2021-02-08] MEDS: losartan 50mg tablet PO SCH (07:36)
[2021-02-08] MEDS: dronabinol 2.5mg capsule PO SCH ×3 (07:58→17:18)
[2021-02-08] MEDS: lactose-reduced food (Ensure Enlive) - 237ml bottle PO SCH ×3 (08:00→18:00)
[2021-02-08] MEDS: K and/or MAG REPLACEMENT MC SCH ×2 (08:00→20:00)
[2021-02-08 08:29] LABS: ALANINE AMINOTRANSFERASE 13 U/L (12-78); ALBUMIN 2.3 G/DL (3.4-5.0); ALBUMIN/GLOBULIN RATIO 0.5 (1.1-1.5); ALKALINE PHOSPHATASE 64 IU/L (46-116); ANION GAP 8 (8-16); ASPARTATE AMINO TRANSFERASE 10 U/L (10-37); BILIRUBIN,TOTAL 0.4 MG/DL (0.1-1.0); BLOOD UREA NITROGEN 113 MG/DL (7-18); C-REACTIVE PROTEIN 1.98 MG/DL (0.0-0.5); CALCIUM 8.4 MG/DL (8.5-10.1); CHLORIDE 108 MMOL/L (99-107); CREATININE 2.57 MG/DL (0.40-0.90); GLUCOSE 114 MG/DL (70-104); POTASSIUM 5.8 MMOL/L (3.5-5.1); SODIUM 144 MMOL/L (135-145); TOTAL CARBON DIOXIDE 28.5 MMOL/L (24-32); TOTAL PROTEIN 6.5 G/DL (6.4-8.2); eGFR 18 ML/MIN
[2021-02-08 08:43] LABS: BASOPHILS % (AUTO) 0.1 % (0-1); EOSINOPHILS % (AUTO) 0.1 % (0-6); HEMATOCRIT 31.2 % (35.0-45.0); HEMOGLOBIN 10.2 g/dl (12.0-16.0); LYMPHOCYTES # (AUTO) 0.4 X10'3 (1.1-4.8); LYMPHOCYTES % (AUTO) 10.8 % (21-51); MEAN CORPUSCULAR HEMOGLOBIN 27.6 PG (27.0-31.0); MEAN CORPUSCULAR HGB CONC 32.5 g/dL (33.0-36.5); MEAN CORPUSCULAR VOLUME 84.8 FL (78-98); MEAN PLATELET VOLUME 7.9 FL (7.4-10.4); MONOCYTES # (AUTO) 0.3 X10'3 (0-0.9); NEUTROPHILS # (AUTO) 3.3 X10'3 (1.8-7.7); PLATELET COUNT 177 X10'3 (140-440); RED BLOOD COUNT 3.68 X10'6 (4.20-5.60); RED CELL DISTRIBUTION WIDTH 15.3 % (11.5-14.5)
[2021-02-08 10:00] VITALS: BP 111/70
[2021-02-08 14:00] VITALS: BP 91/61
--- NOTE | 2021-02-08 18:32 | NUR ---
Problems reprioritized. Patient report given, questions answered & plan of care reviewed with TABBY BLOOM.
[2021-02-08] MEDS: doxazosin mesylate 2mg tablet PO SCH (21:40)
[2021-02-09] MEDS: loperamide 2mg capsule PO SCH ×4 (04:15→21:37)
[2021-02-09 06:00] VITALS: BP 144/80
--- NOTE | 2021-02-09 06:19 | NUR ---
Patient in room [facility] 4016. I have received report from TABBY BLOOM and had the opportunity to ask questions and assume patient care.
--- NOTE | 2021-02-09 06:38 | NUR ---
Problems reprioritized. Patient report given, questions answered & plan of care reviewed with Melody.
[2021-02-09] MEDS: K and/or MAG REPLACEMENT MC SCH ×2 (08:00→20:00)
[2021-02-09 08:04] LABS: BASOPHILS % (AUTO) 0.1 % (0-1); EOSINOPHILS % (AUTO) 0.3 % (0-6); HEMATOCRIT 32.4 % (35.0-45.0); HEMOGLOBIN 10.6 g/dl (12.0-16.0); LYMPHOCYTES # (AUTO) 0.4 X10'3 (1.1-4.8); LYMPHOCYTES % (AUTO) 11.4 % (21-51); MEAN CORPUSCULAR HGB CONC 32.8 g/dL (33.0-36.5); MEAN CORPUSCULAR VOLUME 85.2 FL (78-98); MEAN PLATELET VOLUME 8.5 FL (7.4-10.4); MONOCYTES # (AUTO) 0.3 X10'3 (0-0.9); MONOCYTES % (AUTO) 6.6 % (2-12); NEUTROPHILS # (AUTO) 3.1 X10'3 (1.8-7.7); NEUTROPHILS % (AUTO) 81.6 % (42-75); PLATELET COUNT 187 X10'3 (140-440); RED CELL DISTRIBUTION WIDTH 15.5 % (11.5-14.5); WHITE BLOOD COUNT 3.8 X10'3 (4.5-11.0)
[2021-02-09 08:37] LABS: ALANINE AMINOTRANSFERASE 14 U/L (12-78); ALBUMIN 2.4 G/DL (3.4-5.0); ALBUMIN/GLOBULIN RATIO 0.5 (1.1-1.5); ALKALINE PHOSPHATASE 68 IU/L (46-116); ANION GAP 10 (8-16); ASPARTATE AMINO TRANSFERASE 14 U/L (10-37); BILIRUBIN,TOTAL 0.4 MG/DL (0.1-1.0); BLOOD UREA NITROGEN 135 MG/DL (7-18); BUN/CREATININE RATIO 45.2 (6.6-38.0); C-REACTIVE PROTEIN 1.36 MG/DL (0.0-0.5); CALCIUM 8.8 MG/DL (8.5-10.1); CHLORIDE 108 MMOL/L (99-107); CREATININE 2.99 MG/DL (0.40-0.90); GLUCOSE 121 MG/DL (70-104); SODIUM 147 MMOL/L (135-145); TOTAL CARBON DIOXIDE 29.1 MMOL/L (24-32); TOTAL PROTEIN 6.8 G/DL (6.4-8.2); eGFR 15 ML/MIN
[2021-02-09] MEDS: lactose-reduced food (Ensure Enlive) - 237ml bottle PO SCH ×4 (08:40→21:32)
[2021-02-09 08:41] LABS: POTASSIUM 6.8 MMOL/L (3.5-5.1)
--- NOTE | 2021-02-09 08:47 | NUR ---
Page Sent PAGER ID: [phone] MESSAGE: FIDEL [id number] RE: FELICITY JARRELL [phone] PT'S K+ WAS 6.8 TODAY. THANKS!
[2021-02-09] MEDS: dronabinol 2.5mg capsule PO SCH ×3 (08:56→16:48)
[2021-02-09] MEDS: dronedarone hcl 400mg tablet PO SCH ×2 (08:56→21:37)
[2021-02-09] MEDS: dexamethasone inj 6 MG in normal saline 50ml IV soln 50 ML IV SCH ×2 (08:56→21:37)
[2021-02-09] MEDS: modafinil 100mg tablet PO SCH (08:56)
[2021-02-09] MEDS: pantoprazole 40mg Tablet.DR PO SCH ×2 (08:57→21:37)
[2021-02-09] MEDS: enoxaparin 30mg/0.3ml syringe SUBCUT SCH ×2 (08:57→21:38)
[2021-02-09] MEDS: sertraline 50mg tablet PO SCH (08:57)
[2021-02-09] MEDS: levoTHYROXINE 25mcg tablet PO SCH (08:58)
[2021-02-09] MEDS: losartan 50mg tablet PO SCH (09:00)
[2021-02-09] MEDS: carvedilol 6.25mg tablet PO SCH ×2 (09:00→20:00)
[2021-02-09 10:00] VITALS: BP 141/78
[2021-02-09 14:00] VITALS: BP 111/57
[2021-02-09] MEDS ORDERED: insulin regular, human 10 units/0.1 ml syringe IV ONE (16:05)
[2021-02-09] MEDS ORDERED: dextrose 50%-water 50ml dispensing syringe IV ONE (16:05)
[2021-02-09 18:00] VITALS: BP 148/71
[2021-02-09] MEDS: doxazosin mesylate 2mg tablet PO SCH (21:38)
[2021-02-09 21:40] VITALS: BP 95/63
[2021-02-09 22:00] VITALS: BP 103/66
[2021-02-10] MEDS: loperamide 2mg capsule PO SCH ×4 (02:10→21:40)
[2021-02-10 02:30] VITALS: BP 122/75
[2021-02-10 06:00] VITALS: BP 122/69
--- NOTE | 2021-02-10 06:48 | NUR ---
Patient in room [facility] 4016. I have received report from Suleiman MCNAIR and had the opportunity to ask questions and assume patient care.
[2021-02-10] MEDS: levoTHYROXINE 25mcg tablet PO SCH (07:33)
[2021-02-10] MEDS: dronabinol 2.5mg capsule PO SCH ×3 (07:34→17:55)
[2021-02-10] MEDS: dexamethasone inj 6 MG in normal saline 50ml IV soln 50 ML IV SCH ×3 (07:34→21:40)
[2021-02-10] MEDS: pantoprazole 40mg Tablet.DR PO SCH (07:38)
[2021-02-10] MEDS: sertraline 50mg tablet PO SCH (07:39)
[2021-02-10] MEDS: modafinil 100mg tablet PO SCH (07:39)
[2021-02-10] MEDS: dronedarone hcl 400mg tablet PO SCH ×2 (07:40→21:40)
[2021-02-10] MEDS: carvedilol 6.25mg tablet PO SCH ×2 (08:00→20:00)
[2021-02-10] MEDS: K and/or MAG REPLACEMENT MC SCH ×2 (08:00→20:00)
--- NOTE | 2021-02-10 08:00 | NUR ---
0800 Carvedilol dose held due to pt's heart rate 55. aware. Will continue to monitor.
--- NOTE | 2021-02-10 08:00 | NUR ---
Attempted to scan Ensure, but NOC shift RN had inadvertently scanned 0800 dose. Pt did drink 100% (240cc). Will continue to monitor.
[2021-02-10] MEDS: enoxaparin 30mg/0.3ml syringe SUBCUT SCH (08:25)
[2021-02-10 08:40] LABS: BASOPHILS % (AUTO) 0.6 % (0-1); EOSINOPHILS % (AUTO) 0.2 % (0-6); HEMATOCRIT 31.6 % (35.0-45.0); HEMOGLOBIN 10.4 g/dl (12.0-16.0); LYMPHOCYTES # (AUTO) 0.4 X10'3 (1.1-4.8); LYMPHOCYTES % (AUTO) 10.6 % (21-51); MEAN CORPUSCULAR HEMOGLOBIN 28.4 PG (27.0-31.0); MEAN PLATELET VOLUME 8.9 FL (7.4-10.4); MONOCYTES # (AUTO) 0.3 X10'3 (0-0.9); MONOCYTES % (AUTO) 6.2 % (2-12); NEUTROPHILS # (AUTO) 3.4 X10'3 (1.8-7.7); NEUTROPHILS % (AUTO) 82.4 % (42-75); PLATELET COUNT 178 X10'3 (140-440); RED BLOOD COUNT 3.67 X10'6 (4.20-5.60); RED CELL DISTRIBUTION WIDTH 15.5 % (11.5-14.5); WHITE BLOOD COUNT 4.1 X10'3 (4.5-11.0)
[2021-02-10 09:14] LABS: ALANINE AMINOTRANSFERASE 16 U/L (12-78); ALBUMIN 2.4 G/DL (3.4-5.0); ALBUMIN/GLOBULIN RATIO 0.6 (1.1-1.5); ALKALINE PHOSPHATASE 67 IU/L (46-116); ANION GAP 9 (8-16); ASPARTATE AMINO TRANSFERASE 13 U/L (10-37); BILIRUBIN,TOTAL 0.3 MG/DL (0.1-1.0); BLOOD UREA NITROGEN 145 MG/DL (7-18); BUN/CREATININE RATIO 47.1 (6.6-38.0); C-REACTIVE PROTEIN 0.98 MG/DL (0.0-0.5); CALCIUM 8.5 MG/DL (8.5-10.1); CHLORIDE 109 MMOL/L (99-107); CREATININE 3.08 MG/DL (0.40-0.90); GLUCOSE 117 MG/DL (70-104); SODIUM 146 MMOL/L (135-145); TOTAL CARBON DIOXIDE 27.8 MMOL/L (24-32); TOTAL PROTEIN 6.6 G/DL (6.4-8.2); eGFR 15 ML/MIN
[2021-02-10 09:22] LABS: POTASSIUM 7.2 MMOL/L (3.5-5.1)
--- NOTE | 2021-02-10 09:43 | NUR ---
PAGER ID: [phone] MESSAGE: re: room 4016 Shi Fischer Critical K+ 7.2 today. Orders? thank you, Mary de la [id number] Received critical value info from concrete vibrator operator at 0925. Will continue to monitor.
[2021-02-10 10:00] VITALS: BP 92/58
[2021-02-10] MEDS ORDERED: dextrose 50%-water 50ml dispensing syringe IV ONE (10:50)
[2021-02-10] MEDS ORDERED: insulin regular, human 10 units/0.1 ml syringe IV ONE (10:50)
--- NOTE | 2021-02-10 11:07 | NUR ---
phoned Pharmacy, Pt's Hernandezulin not on the floor, they will send Humulin up. Will continue to daina.
--- NOTE | 2021-02-10 11:54 | NUR ---
PAGER ID: [phone] MESSAGE: re: room 4016, Shi Fischer Production Manager is wondering if you'd like a Cor Pac placed? Also, 0800 Carvedilol held due to pt's HR 55. Thank you, Mary de la [email or web address] Will continue to monitor.
--- NOTE | 2021-02-10 13:00 | NUR ---
Dr Villalobos at pt bedside, discussed: lab values (K+ 7.2), possible Cor Pack, pt's poor food/fluid intake, x1 large incontinent void this a.m. states he will be speaking with family, Nikki HODGE RN at [facility] pt's daughter. Will continue to monitor.
[2021-02-10] MEDS: lactose-reduced food (Ensure Enlive) - 237ml bottle PO SCH ×2 (13:02→17:56)
--- NOTE | 2021-02-10 14:32 | NUR ---
F/u 02/10: Pt continues to be malnourished only PO 25-50% 4 meals past 8 days. PO Ensure Enlive TIDWM declined to 50% yesterday from prior 75-100% not meeting needs. Pt appetite remains poor w/ ALOC already receiving marinol AC since 02/05. Serum Na, K, BUN, and Cr all increasing w/ poor PO intake. BINU d/w RN and paged MD regarding NG to optimize nutrition/hydration status if agreeable given malnutrition status w/ poor PO intake. Pending response at this time. Noted large diarrhea yesterday 02/09 per EMR not helping hydration status. Will continue to monitor for further nutrition intervention needs. Rec: 1. continue regular/pureed/thin liquids diet per SOCK LINING STITCHER/MD recs; full assistance w/ meals; encourage PO 2. Ensure Enlive TIDWM; encourage PO 3. Continue appetite stimulant per MD 4. Would benefit from NG nutrition IF within patient's plan of care given poor PO since admit; IF TF Vital AF at 65ml/hr goal to provide 1560ml volume/day, 1264ml water, 1872 kcals, and 117g protein. 5. IF TF; additional water flush 125ml Q4H 6. bowel care per rx; routine anti-diarrheal per MD 7. weekly wts Addendum: 02/10/21 at [address] Amended: Links added.
--- NOTE | 2021-02-10 14:56 | NUR ---
TABBY TC: reviewed nutrition needs w/ family who decline artificial nutrition at this time. Will monitor for changes in code status. Rec: 1. continue regular/pureed/thin liquids diet per CARPET WEAVER/ recs; full assistance w/ meals; encourage PO 2. Ensure Enlive TIDWM; encourage PO 3. Continue appetite stimulant per MD 4. No artificial nutrition per family; monitor for changes in code status 5. bowel care per rx; routine anti-diarrheal per MD 6. weekly wts Addendum: 02/10/21 at [address] Amended: Links added.
--- NOTE | 2021-02-10 14:59 | NUR ---
Message sent to PICC group: room 4016 needs a PICC line, orders in. thank you, Mary [phone] Will continue to monitor.
[2021-02-10] MEDS ORDERED: sodium bicarbonate (8.4%) 1 mEq/ml syringe IV ONE (15:00)
[2021-02-10] MEDS ORDERED: albuterol 2.5 MG/3 ML nebule NEB ONE (15:00)
--- NOTE | 2021-02-10 15:05 | NUR ---
phone call from PICC RN, she will need to place PICC tomorrow. notified. Will continue to monitor
[2021-02-10] MEDS: dextrose 5%-water 1,000 ML IV SCH (15:55)
--- NOTE | 2021-02-10 16:22 | NUR ---
re: room 4016 please call re: order for Albuterol Nebs. Pt is not Iso. Mary O/N [phone]
--- NOTE | 2021-02-10 16:52 | NUR ---
Phone calls to [facility], state they cannot do Albuterol Nebs as ordered on this unit without Dr Thompson [place]. color control operator aware. Attempting to phone mynor Houser left on cell.
--- NOTE | 2021-02-10 16:53 | NUR ---
Phone call to House Amy re: Sodium Bicarb administration. She will send CCU RN to admin. Will continue to monitor.
--- NOTE | 2021-02-10 16:55 | NUR ---
PAGER ID: [phone] MESSAGE: re: 4016, Shi Fischer Please call re: Albuterol Nebs, Sodium Bicarb push and need consent signed for PICC which will be done tomorrow. Thank you, Mary [phone] golf ball inspector aware. Will continue to monitor.
--- NOTE | 2021-02-10 17:15 | NUR ---
telephone call with Dr Villalobos, orders received. Will continue to monitor.
[2021-02-10 18:00] VITALS: BP 124/64
--- NOTE | 2021-02-10 18:35 | NUR ---
Problems reprioritized. Patient report given, questions answered & plan of care reviewed with Tania MCNAIR.
--- NOTE | 2021-02-10 18:39 | NUR ---
Patient in room [facility]TH[facility] 4016. I have received report from TABBY TARIQ and had the opportunity to ask questions and assume patient care.
[2021-02-10] MEDS: doxazosin mesylate 2mg tablet PO SCH (21:40)
[2021-02-10 22:00] VITALS: BP 103/50
--- NOTE | 2021-02-10 22:27 | NUR ---
notified Dr Rousseau critical lab of K 6.3. received order to stop immodiium.
[2021-02-11] VITALS (8 sets, daily range): BP systolic 86–138; BP diastolic 48–79
[2021-02-11] MEDS: dextrose 5%-water 1,000 ML IV SCH ×3 (01:06→15:37)
--- NOTE | 2021-02-11 06:30 | NUR ---
Problems reprioritized. Patient report given, questions answered & plan of care reviewed with césar hebert.
[2021-02-11] MEDS: sertraline 50mg tablet PO SCH (07:24)
[2021-02-11] MEDS: dronedarone hcl 400mg tablet PO SCH ×3 (07:24→19:55)
[2021-02-11] MEDS: levoTHYROXINE 25mcg tablet PO SCH (07:24)
[2021-02-11] MEDS: modafinil 100mg tablet PO SCH (07:24)
[2021-02-11] MEDS: dexamethasone inj 6 MG in normal saline 50ml IV soln 50 ML IV SCH ×2 (07:25→19:18)
[2021-02-11] MEDS: dronabinol 2.5mg capsule PO SCH ×4 (07:25→18:14)
[2021-02-11] MEDS: carvedilol 6.25mg tablet PO SCH ×2 (07:26→19:17)
[2021-02-11] MEDS: K and/or MAG REPLACEMENT MC SCH ×2 (08:00→20:00)
[2021-02-11] MEDS: lactose-reduced food (Ensure Enlive) - 237ml bottle PO SCH ×3 (08:00→18:04)
[2021-02-11 08:59] LABS: BASOPHILS # (AUTO) 0.1 X10'3 (0-0.2); BASOPHILS % (AUTO) 1.3 % (0-1); EOSINOPHILS % (AUTO) 0.3 % (0-6); HEMOGLOBIN 9.8 g/dl (12.0-16.0); LYMPHOCYTES # (AUTO) 0.6 X10'3 (1.1-4.8); MEAN CORPUSCULAR HGB CONC 32.6 g/dL (33.0-36.5); MEAN CORPUSCULAR VOLUME 85.8 FL (78-98); MEAN PLATELET VOLUME 8.1 FL (7.4-10.4); MONOCYTES # (AUTO) 0.3 X10'3 (0-0.9); MONOCYTES % (AUTO) 7.3 % (2-12); NEUTROPHILS # (AUTO) 3.7 X10'3 (1.8-7.7); NEUTROPHILS % (AUTO) 79.1 % (42-75); PLATELET COUNT 169 X10'3 (140-440); RED CELL DISTRIBUTION WIDTH 15.5 % (11.5-14.5); WHITE BLOOD COUNT 4.6 X10'3 (4.5-11.0)
[2021-02-11 09:17] LABS: ALANINE AMINOTRANSFERASE 17 U/L (12-78); ALBUMIN 2.3 G/DL (3.4-5.0); ALBUMIN/GLOBULIN RATIO 0.6 (1.1-1.5); ALKALINE PHOSPHATASE 57 IU/L (46-116); ANION GAP 3 (8-16); ASPARTATE AMINO TRANSFERASE 12 U/L (10-37); BILIRUBIN,TOTAL 0.3 MG/DL (0.1-1.0); C-REACTIVE PROTEIN 0.58 MG/DL (0.0-0.5); CALCIUM 8.4 MG/DL (8.5-10.1); CHLORIDE 103 MMOL/L (99-107); CREATININE 3.22 MG/DL (0.40-0.90); GLUCOSE 133 MG/DL (70-104); SODIUM 137 MMOL/L (135-145); TOTAL CARBON DIOXIDE 30.9 MMOL/L (24-32); TOTAL PROTEIN 6.2 G/DL (6.4-8.2); eGFR 14 ML/MIN
[2021-02-11 09:23] LABS: D-DIMER 3.05 MG/L FEU (0-0.50)
[2021-02-11 09:38] LABS: POTASSIUM 6.3 MMOL/L (3.5-5.1)
[2021-02-11 09:39] LABS: BLOOD UREA NITROGEN 159 MG/DL (7-18); BUN/CREATININE RATIO 49.4 (6.6-38.0)
--- NOTE | 2021-02-11 09:39 | NUR ---
PAGER ID: [phone] MESSAGE: [phone] Piyush Fischer: Critical K+ 6.3. Any new orders? thank you! karlie [phone]
[2021-02-11] MEDS ORDERED: sodium polystyrene sulfonate 15gm/60ml oral suspension PO ONE (11:30)
[2021-02-11] MEDS ORDERED: insulin regular, human 10 units/0.1 ml syringe IV ONE (11:30)
[2021-02-11] MEDS ORDERED: dextrose 50%-water 50ml dispensing syringe IV ONE (11:30)
--- NOTE | 2021-02-11 12:06 | NUR ---
Page sent to PICC RN.... [phone] Piyush Fischer: Spoke with Dr. Reyes regarding PICC order. She said it is her first day back, she doesn't know why this is ordered and she will look into it. I will let you know if I hear anything more. thank you! karlie [phone]
--- NOTE | 2021-02-11 12:30 | NUR ---
Attempted IV start x2 unable to obtain. corporate accountant attempted x1. Paged PICC RN to come get access so new orders can be given.
--- NOTE | 2021-02-11 13:30 | NUR ---
PICC RN called back, said she would be up to the floor shortly to place an IV. at this time patient does not have IV access to give meds.
--- NOTE | 2021-02-11 14:11 | NUR ---
PAGER ID: [phone] MESSAGE: [phone] Piyush Fischer: Just an FYI, patient awaiting IV access to give ordered meds. PICC RN should be here shortly. thanks! karlie [phone]
--- NOTE | 2021-02-11 15:52 | NUR ---
PAGER ID: [phone] MESSAGE: [phone] Amado, S: K+ is still 6.3 after insulin and d50 given. which calcium order would you like me to put in now? thanks, karlie [phone]
[2021-02-11] MEDS ORDERED: calcium chloride 100 MG/1 ML inj IV ONE (15:55)
[2021-02-11] MEDS ORDERED: albuterol 2.5 MG/3 ML nebule CONTNEB STA (16:19)
--- NOTE | 2021-02-11 16:31 | NUR ---
Page sent to RT... [id number] Piyush Fischer: JASON.patient has new respiratory orders. thank you! [phone] Addendum: 02/11/21 at 1631 by Corinne Hernandez RN Amended: Links added.
[2021-02-11] MEDS: sodium chloride 0.45% 1,000 ML IV SCH (16:46)
--- NOTE | 2021-02-11 18:13 | NUR ---
Problems reprioritized. Patient report given, questions answered & plan of care reviewed with TABBY Carson.
[2021-02-11] MEDS: doxazosin mesylate 2mg tablet PO SCH (19:17)
[2021-02-11] MEDS: SODIUM ZIRCONIUM CYCLOSILICATE 10 GM POWD.PACK PO SCH (19:17)
[2021-02-12 02:00] VITALS: BP 122/64
[2021-02-12] MEDS: sodium chloride 0.45% 1,000 ML IV SCH ×3 (03:22→18:00)
--- NOTE | 2021-02-12 05:11 | NUR ---
pt had 2 very large loose BM's last night. incont stool and urine. does not use the call light. follows commands. unsure of patient baseline. reposition patient throughout the night. on 2L oxygen sats stable. monitoring for low BP and Heart rate.
[2021-02-12 05:30] VITALS: BP 128/56
--- NOTE | 2021-02-12 06:40 | NUR ---
Patient in room [facility]TH[facility] 4016. I have received report from TABBY Carson and had the opportunity to ask questions and assume patient care.
[2021-02-12] MEDS: lactose-reduced food (Ensure Enlive) - 237ml bottle PO SCH ×4 (07:52→18:32)
[2021-02-12] MEDS: carvedilol 6.25mg tablet PO SCH ×2 (08:00→20:00)
[2021-02-12 08:01] LABS: BASOPHILS % (AUTO) 0.3 % (0-1); EOSINOPHILS % (AUTO) 0.3 % (0-6); HEMOGLOBIN 9.3 g/dl (12.0-16.0); LYMPHOCYTES # (AUTO) 0.5 X10'3 (1.1-4.8); LYMPHOCYTES % (AUTO) 13.3 % (21-51); MEAN CORPUSCULAR HEMOGLOBIN 27.9 PG (27.0-31.0); MEAN CORPUSCULAR HGB CONC 33.1 g/dL (33.0-36.5); MEAN CORPUSCULAR VOLUME 84.2 FL (78-98); MEAN PLATELET VOLUME 9.1 FL (7.4-10.4); MONOCYTES # (AUTO) 0.2 X10'3 (0-0.9); MONOCYTES % (AUTO) 5.7 % (2-12); NEUTROPHILS # (AUTO) 3.2 X10'3 (1.8-7.7); NEUTROPHILS % (AUTO) 80.4 % (42-75); PLATELET COUNT 160 X10'3 (140-440); RED BLOOD COUNT 3.33 X10'6 (4.20-5.60); RED CELL DISTRIBUTION WIDTH 14.6 % (11.5-14.5); WHITE BLOOD COUNT 3.9 X10'3 (4.5-11.0)
[2021-02-12 08:22] LABS: ALANINE AMINOTRANSFERASE 28 U/L (12-78); ALBUMIN 2.1 G/DL (3.4-5.0); ALBUMIN/GLOBULIN RATIO 0.6 (1.1-1.5); ALKALINE PHOSPHATASE 55 IU/L (46-116); ANION GAP 8 (8-16); ASPARTATE AMINO TRANSFERASE 21 U/L (10-37); BILIRUBIN,TOTAL 0.3 MG/DL (0.1-1.0); BLOOD UREA NITROGEN 138 MG/DL (7-18); BUN/CREATININE RATIO 50.9 (6.6-38.0); C-REACTIVE PROTEIN 0.43 MG/DL (0.0-0.5); CALCIUM 8.4 MG/DL (8.5-10.1); CHLORIDE 103 MMOL/L (99-107); CREATININE 2.71 MG/DL (0.40-0.90); GLUCOSE 100 MG/DL (70-104); POTASSIUM 5.4 MMOL/L (3.5-5.1); SODIUM 139 MMOL/L (135-145); TOTAL CARBON DIOXIDE 27.7 MMOL/L (24-32); TOTAL PROTEIN 5.8 G/DL (6.4-8.2); eGFR 17 ML/MIN
[2021-02-12] MEDS: K and/or MAG REPLACEMENT MC SCH ×2 (09:57→19:27)
[2021-02-12 10:00] VITALS: BP 93/50
[2021-02-12] MEDS: levoTHYROXINE 25mcg tablet PO SCH (10:08)
[2021-02-12] MEDS: SODIUM ZIRCONIUM CYCLOSILICATE 10 GM POWD.PACK PO SCH ×3 (10:08→21:38)
[2021-02-12] MEDS: dronedarone hcl 400mg tablet PO SCH ×2 (10:08→21:38)
[2021-02-12] MEDS: dronabinol 2.5mg capsule PO SCH ×2 (10:08→12:00)
[2021-02-12] MEDS: sertraline 50mg tablet PO SCH (10:08)
[2021-02-12] MEDS: dexamethasone inj 6 MG in normal saline 50ml IV soln 50 ML IV SCH (10:08)
[2021-02-12] MEDS: modafinil 100mg tablet PO SCH (10:08)
[2021-02-12 10:59] LABS: D-DIMER 3.69 MG/L FEU (0-0.50)
[2021-02-12 14:00] VITALS: BP 93/58
[2021-02-12 18:00] VITALS: BP 115/74
--- NOTE | 2021-02-12 18:20 | NUR ---
Problems reprioritized. Patient report given, questions answered & plan of care reviewed with TABBY William.
--- NOTE | 2021-02-12 18:45 | NUR ---
Patient in room [facility]TH[facility] 4016. I have received report from Virgen MCNAIR and had the opportunity to ask questions and assume patient care.
[2021-02-12] MEDS: doxazosin mesylate 2mg tablet PO SCH (21:38)
[2021-02-12 22:00] VITALS: BP 101/77
[2021-02-13 02:00] VITALS: BP 107/56
[2021-02-13] MEDS: sodium chloride 0.45% 1,000 ML IV SCH ×2 (04:41→18:25)
--- NOTE | 2021-02-13 06:40 | NUR ---
Problems reprioritized. Patient report given, questions answered & plan of care reviewed with Brown MCNAIR.
[2021-02-13 07:37] VITALS: BP 113/66
[2021-02-13] MEDS: K and/or MAG REPLACEMENT MC SCH ×2 (09:23→20:00)
[2021-02-13] MEDS: dronedarone hcl 400mg tablet PO SCH ×2 (09:24→21:49)
[2021-02-13] MEDS: lactose-reduced food (Ensure Enlive) - 237ml bottle PO SCH ×3 (09:24→18:02)
[2021-02-13] MEDS: sertraline 50mg tablet PO SCH (09:24)
[2021-02-13] MEDS: carvedilol 6.25mg tablet PO SCH ×2 (09:24→21:50)
[2021-02-13] MEDS: SODIUM ZIRCONIUM CYCLOSILICATE 10 GM POWD.PACK PO SCH ×3 (09:24→21:50)
[2021-02-13] MEDS: levoTHYROXINE 25mcg tablet PO SCH (09:24)
[2021-02-13] MEDS: modafinil 100mg tablet PO SCH (09:24)
--- NOTE | 2021-02-13 11:52 | NUR ---
Reassessment: Pt A/O x 2 and confused per physical assessment. PO intake remains poor with average 19% PO intake of meals and average 50% PO intake of ONS given fluctuating acceptance with 100% and refusals since last RD assessment 02/10. Pt continues not meeting estimated nutrient needs however nutrition interventions are very limited at this time as patient's family declines artificial nutrition per d/w RN. Pt receiving encouragement and total assistance with meals per EMR. LBM 02/12, documented with diarrhea. Will continue to follow closely. Recommendations: 1. Continue pureed diet with thin liquids per ST recs 2. Ensure Enlive TIDWM 3. Encourage PO intake and full assistance with meals 4. Continue appetite stimulant per MD 5. No artificial nutrition per family 6. Bowel care per rx; consider anti-diarrheal 7. Weekly scaled weights Addendum: 02/13/21 at [address] Amended: Links added.
[2021-02-13 14:03] LABS: BASOPHILS % (AUTO) 0.4 % (0-1); EOSINOPHILS % (AUTO) 1.2 % (0-6); HEMATOCRIT 26.4 % (35.0-45.0); HEMOGLOBIN 8.5 g/dl (12.0-16.0); LYMPHOCYTES # (AUTO) 0.5 X10'3 (1.1-4.8); LYMPHOCYTES % (AUTO) 16.3 % (21-51); MEAN CORPUSCULAR HEMOGLOBIN 27.6 PG (27.0-31.0); MEAN CORPUSCULAR HGB CONC 32.3 g/dL (33.0-36.5); MEAN CORPUSCULAR VOLUME 85.5 FL (78-98); MEAN PLATELET VOLUME 9.2 FL (7.4-10.4); MONOCYTES # (AUTO) 0.3 X10'3 (0-0.9); MONOCYTES % (AUTO) 10.1 % (2-12); NEUTROPHILS # (AUTO) 2.2 X10'3 (1.8-7.7); PLATELET COUNT 141 X10'3 (140-440); RED BLOOD COUNT 3.09 X10'6 (4.20-5.60); RED CELL DISTRIBUTION WIDTH 14.6 % (11.5-14.5)
[2021-02-13 14:14] LABS: D-DIMER 3.61 MG/L FEU (0-0.50)
[2021-02-13 14:18] LABS: ALANINE AMINOTRANSFERASE 21 U/L (12-78); ALBUMIN 1.9 G/DL (3.4-5.0); ALBUMIN/GLOBULIN RATIO 0.6 (1.1-1.5); ALKALINE PHOSPHATASE 55 IU/L (46-116); ANION GAP 8 (8-16); ASPARTATE AMINO TRANSFERASE 14 U/L (10-37); BILIRUBIN,TOTAL 0.3 MG/DL (0.1-1.0); BLOOD UREA NITROGEN 115 MG/DL (7-18); BUN/CREATININE RATIO 51.8 (6.6-38.0); C-REACTIVE PROTEIN 0.37 MG/DL (0.0-0.5); CALCIUM 7.2 MG/DL (8.5-10.1); CHLORIDE 105 MMOL/L (99-107); CREATININE 2.22 MG/DL (0.40-0.90); GLUCOSE 78 MG/DL (70-104); POTASSIUM 4.1 MMOL/L (3.5-5.1); SODIUM 140 MMOL/L (135-145); TOTAL CARBON DIOXIDE 27.1 MMOL/L (24-32); TOTAL PROTEIN 5.2 G/DL (6.4-8.2); eGFR 21 ML/MIN
[2021-02-13 14:22] LABS: ANISOCYTOSIS 1+; PLATELET ESTIMATE DECREASED; TOTAL CELLS COUNTED 100
[2021-02-13 16:01] VITALS: BP 120/76
--- NOTE | 2021-02-13 18:40 | NUR ---
Patient in room [facility]TH[facility] 4016. I have received report from Brown MCNAIR and had the opportunity to ask questions and assume patient care. Addendum: 02/13/21 at 1849 by Val Deutsch RN Amended: Links added.
[2021-02-13 19:00] VITALS: BP 109/60
--- NOTE | 2021-02-13 20:00 | NUR ---
Pt. awake A & O at this time. Pt. denies c/o pain or SOB at this time- o2 at 2 l via n/c saturating at 95%. HOB in high fowlers to facilitate better breathing. Isolation precaution maintained. Bed in low position and call light within reach. Addendum: 02/14/21 at 0010 by Val Deutsch RN Amended: Links added.
[2021-02-13] MEDS: doxazosin mesylate 2mg tablet PO SCH (21:50)
[2021-02-13 22:00] VITALS: BP 116/61
[2021-02-14] MEDS: sodium chloride 0.45% 1,000 ML IV SCH ×2 (01:12→13:42)
[2021-02-14 02:00] VITALS: BP 107/63
[2021-02-14 06:00] VITALS: BP 98/49
--- NOTE | 2021-02-14 06:55 | NUR ---
Problems reprioritized. Patient report given, questions answered & plan of care reviewed with Nora MCNAIR. Addendum: 02/14/21 at 0656 by Val Deutsch RN Amended: Links added.
--- NOTE | 2021-02-14 07:32 | NUR ---
Patient in room [facility]TH[facility] 4016. I have received report from TABBY CORRIGAN and had the opportunity to ask questions and assume patient care.
[2021-02-14] MEDS: K and/or MAG REPLACEMENT MC SCH ×2 (08:00→20:00)
[2021-02-14] MEDS: carvedilol 6.25mg tablet PO SCH ×2 (08:00→20:07)
[2021-02-14] MEDS: sertraline 50mg tablet PO SCH (08:28)
[2021-02-14] MEDS: levoTHYROXINE 25mcg tablet PO SCH (08:28)
[2021-02-14] MEDS: modafinil 100mg tablet PO SCH (08:29)
[2021-02-14] MEDS: dronedarone hcl 400mg tablet PO SCH ×2 (08:29→20:07)
[2021-02-14] MEDS: SODIUM ZIRCONIUM CYCLOSILICATE 10 GM POWD.PACK PO SCH ×3 (08:30→20:06)
[2021-02-14] MEDS: lactose-reduced food (Ensure Enlive) - 237ml bottle PO SCH ×3 (08:43→18:00)
[2021-02-14 10:00] VITALS: BP 94/64
[2021-02-14 14:00] VITALS: BP 124/74
[2021-02-14 18:00] VITALS: BP 113/63
--- NOTE | 2021-02-14 18:55 | NUR ---
Problems reprioritized. Patient report given, questions answered & plan of care reviewed with TABBY Bhakta.
[2021-02-14] MEDS: doxazosin mesylate 2mg tablet PO SCH (20:07)
[2021-02-14 22:00] VITALS: BP 115/71
[2021-02-15 02:00] VITALS: BP 135/71
[2021-02-15 05:03] LABS: BASOPHILS % (AUTO) 0.3 % (0-1); EOSINOPHILS % (AUTO) 1.1 % (0-6); HEMATOCRIT 26.2 % (35.0-45.0); HEMOGLOBIN 8.7 g/dl (12.0-16.0); LYMPHOCYTES # (AUTO) 0.5 X10'3 (1.1-4.8); LYMPHOCYTES % (AUTO) 14.5 % (21-51); MEAN CORPUSCULAR HEMOGLOBIN 27.8 PG (27.0-31.0); MEAN CORPUSCULAR HGB CONC 33.1 g/dL (33.0-36.5); MEAN PLATELET VOLUME 8.9 FL (7.4-10.4); MONOCYTES # (AUTO) 0.3 X10'3 (0-0.9); MONOCYTES % (AUTO) 9.9 % (2-12); NEUTROPHILS # (AUTO) 2.5 X10'3 (1.8-7.7); NEUTROPHILS % (AUTO) 74.2 % (42-75); PLATELET COUNT 136 X10'3 (140-440); RED BLOOD COUNT 3.12 X10'6 (4.20-5.60); RED CELL DISTRIBUTION WIDTH 14.5 % (11.5-14.5); WHITE BLOOD COUNT 3.4 X10'3 (4.5-11.0)
[2021-02-15 05:19] LABS: ALANINE AMINOTRANSFERASE 20 U/L (12-78); ALBUMIN 1.9 G/DL (3.4-5.0); ALBUMIN/GLOBULIN RATIO 0.6 (1.1-1.5); ALKALINE PHOSPHATASE 53 IU/L (46-116); ANION GAP 6 (8-16); ASPARTATE AMINO TRANSFERASE 15 U/L (10-37); BILIRUBIN,TOTAL 0.3 MG/DL (0.1-1.0); BLOOD UREA NITROGEN 96 MG/DL (7-18); BUN/CREATININE RATIO 49.5 (6.6-38.0); C-REACTIVE PROTEIN 1.72 MG/DL (0.0-0.5); CALCIUM 7.6 MG/DL (8.5-10.1); CHLORIDE 108 MMOL/L (99-107); CREATININE 1.94 MG/DL (0.40-0.90); GLUCOSE 94 MG/DL (70-104); POTASSIUM 4.1 MMOL/L (3.5-5.1); SODIUM 140 MMOL/L (135-145); TOTAL PROTEIN 5.2 G/DL (6.4-8.2); eGFR 25 ML/MIN
[2021-02-15 06:00] VITALS: BP 144/83
--- NOTE | 2021-02-15 06:24 | NUR ---
Patient in room [facility]TH[facility] 4016. I have received report from TABBY BROWN and had the opportunity to ask questions and assume patient care.
[2021-02-15 08:00] LABS: D-DIMER 4.07 MG/L FEU (0-0.50)
[2021-02-15] MEDS: SODIUM ZIRCONIUM CYCLOSILICATE 10 GM POWD.PACK PO SCH (08:00)
[2021-02-15] MEDS: K and/or MAG REPLACEMENT MC SCH (08:00)
[2021-02-15] MEDS: lactose-reduced food (Ensure Enlive) - 237ml bottle PO SCH ×2 (08:00→13:02)
[2021-02-15] MEDS: carvedilol 6.25mg tablet PO SCH (09:09)
[2021-02-15] MEDS: sertraline 50mg tablet PO SCH (09:10)
[2021-02-15] MEDS: dronedarone hcl 400mg tablet PO SCH (09:10)
[2021-02-15] MEDS: modafinil 100mg tablet PO SCH (09:10)
[2021-02-15] MEDS: levoTHYROXINE 25mcg tablet PO SCH (09:11)
[2021-02-15 10:00] VITALS: BP 105/62
--- NOTE | 2021-02-15 13:20 | NUR ---
Page Sent PAGER ID: [phone] MESSAGE: KSENIA 5430-RE: FELICITY JARRELL 4016...PT WALKED 100 FT WITH W
[2021-02-15 14:00] VITALS: BP 106/63
[2021-02-15] MEDS ORDERED: ALBU8.5H17 INH (15:39)
[2021-02-15] MEDS ORDERED: PRED10TA23 PO (15:53)
[2021-02-15] MEDS ORDERED: predniSONE 20 mg tablet PO ONE (15:55)
--- NOTE | 2021-02-15 18:26 | NUR ---
Problems reprioritized. Patient report given, questions answered & plan of care reviewed with TABBY JASMINE.
== END 2021-02-15 20:00 | disposition home health service (06) | DRG 177 ==
LOC: ER 22:03 → ED HOLD 01-21 03:43 → PCU 3S 01-22 20:30 → ORTHO 4S 01-25 20:00
PROVIDERS: ADMIT Family Medicine; ATTEND Family Medicine
PROC: XW033E5 Introduction of Remdesivir Anti-infective into Peripheral Vein, Percutaneous Approach, New Technology Group 5 (ICD-10-PCS; principal; 2021-02-04)
DX: U07.1 COVID-19 (principal); G93.41 Metabolic encephalopathy; J12.82 Pneumonia due to coronavirus disease 2019; J96.00 Acute respiratory failure, unspecified whether with hypoxia or hypercapnia; E43 Unspecified severe protein-calorie malnutrition; I50.33 Acute on chronic diastolic (congestive) heart failure; N17.9 Acute kidney failure, unspecified; J44.0 Chronic obstructive pulmonary disease with (acute) lower respiratory infection; I13.0 Hypertensive heart and chronic kidney disease with heart failure and stage 1 through stage 4 chronic kidney disease, or unspecified chronic kidney disease; E87.1 Hypo-osmolality and hyponatremia; E87.0 Hyperosmolality and hypernatremia; E87.6 Hypokalemia; I25.10 Atherosclerotic heart disease of native coronary artery without angina pectoris; I35.0 Nonrheumatic aortic (valve) stenosis; K52.9 Noninfective gastroenteritis and colitis, unspecified; N18.30 Chronic kidney disease, stage 3 unspecified; E03.9 Hypothyroidism, unspecified; F32.9 Major depressive disorder, single episode, unspecified; G31.84 Mild cognitive impairment of uncertain or unknown etiology; M10.9 Gout, unspecified; R63.0 Anorexia; R79.89 Other specified abnormal findings of blood chemistry; R62.7 Adult failure to thrive; I48.0 Paroxysmal atrial fibrillation; Z96.659 Presence of unspecified artificial knee joint; E87.5 Hyperkalemia; D63.8 Anemia in other chronic diseases classified elsewhere; I25.2 Old myocardial infarction; Z85.528 Personal history of other malignant neoplasm of kidney; Z86.73 Personal history of transient ischemic attack (TIA), and cerebral infarction without residual deficits; Z86.711 Personal history of pulmonary embolism; Z90.710 Acquired absence of both cervix and uterus; Z87.440 Personal history of urinary (tract) infections; Z90.5 Acquired absence of kidney; Z91.81 History of falling; Z68.26 Body mass index [BMI] 26.0-26.9, adult; Z88.0 Allergy status to penicillin; Z88.2 Allergy status to sulfonamides; Z88.5 Allergy status to narcotic agent; Z86.718 Personal history of other venous thrombosis and embolism; Z79.899 Other long term (current) drug therapy
CPT/HCPCS: 36415; 36600; 70450; 70551; 71045; 71250; 76770; 76937; 80048; 80053; 80202; 80305; 80320; 81001; 81003; 82140; 82803; 82948; 83605; 83735; 83880; 84132; 84145; 84443; 84484; 85007; 85008; 85018; 85025; 85379; 85610; 85730; 86140; 87040; 87077; 87081; 87186; 87324; 87449; 87635; 92508; 92616; 93005; 93306; 93308; 94640; 94760; 96374; 97110; 97112; 97116; 97161; 97530; 97535; 99285; C9113; C9803; G0378; J0360; J1100; J1644; J1650; J1815; J1940; J1956; J2060; J2405; J3370; J3480; J7030; J7070; J7512; Q0167; U0003; U0005

== ENCOUNTER 2022-07-01 16:35 | Inpatient (IN) | payer MEDICARE, BC ==
[~2022-07-01] VITALS: Ht 152.4 cm; Wt 45.0 kg
[~2022-07-01 16:35] MED LIST changes: -CALC500T11 PO; -CHOL400T PO; -DICY10CA88 PO; +ERGO500093 PO; -FOLI1TAB16 PO; +FOLI1TAB27 PO; -LOPE2CAP PO; -MUPI22OI30 TP; -NEO/5DRO7 RIGHTEYE; -PREVCR VG; +SODI650T29 PO
[2022-07-01] MEDS ORDERED: normal saline 1000ml 1,000 ML IV PRN (16:55)
[2022-07-01 17:13] LABS: HEMOGLOBIN 8.5 g/dl (12.0-16.0); MONOCYTES # (AUTO) 0.3 X10'3 (0-0.9)
[2022-07-01 17:15] LABS: BASOPHILS # (AUTO) 0.1 X10'3 (0-0.2); BASOPHILS % (AUTO) 0.6 % (0-1); EOSINOPHILS % (AUTO) 0.5 % (0-6); HEMATOCRIT 26.6 % (35.0-45.0); LYMPHOCYTES # (AUTO) 0.9 X10'3 (1.1-4.8); MEAN CORPUSCULAR HEMOGLOBIN 30.5 PG (27.0-31.0); MEAN CORPUSCULAR HGB CONC 31.8 g/dL (33.0-36.5); MEAN CORPUSCULAR VOLUME 95.9 FL (78-98); MEAN PLATELET VOLUME 10.4 FL (7.4-10.4); MONOCYTES % (AUTO) 3.5 % (2-12); NEUTROPHILS % (AUTO) 84.4 % (42-75); RED BLOOD COUNT 2.78 X10'6 (4.20-5.60); RED CELL DISTRIBUTION WIDTH 18.4 % (11.5-14.5); WHITE BLOOD COUNT 8.3 X10'3 (4.5-11.0)
[2022-07-01] MEDS ORDERED: dextrose 50%-water 50ml dispensing syringe IV STA (17:26)
--- NOTE | 2022-07-01 17:27 | NUR ---
Dr. Bonilla made aware regarding patient's bg 56mg/dl and bp sbp 70's.Daughter at bedside.Patient is receiving NS bolus in a fluid warmer,bear hugger on, patient on trendelenberg,jones cath/temp in place.[place] care provided.We will monitor.
[2022-07-01 17:28] LABS: LACTIC SEPSIS 0.7 MMOL/L (0.4-2.0)
[2022-07-01 17:32] LABS: APTT 43 SECONDS (22-32); D-DIMER 4.34 MG/L FEU (0-0.50)
[2022-07-01 17:33] LABS: ALANINE AMINOTRANSFERASE 101 U/L (12-78); ALBUMIN 2.6 G/DL (3.4-5.0); ALBUMIN/GLOBULIN RATIO 0.8 (1.1-1.5); ALKALINE PHOSPHATASE 152 IU/L (46-116); ANION GAP 25 (8-16); ASPARTATE AMINO TRANSFERASE 171 U/L (10-37); BILIRUBIN,TOTAL 0.6 MG/DL (0.1-1.0); BLOOD UREA NITROGEN 148 MG/DL (7-18); BUN/CREATININE RATIO 14.9 (6.6-38.0); CALCIUM 8.3 MG/DL (8.5-10.1); CHLORIDE 116 MMOL/L (99-107); CREATININE 9.93 MG/DL (0.40-0.90); GLUCOSE 61 MG/DL (70-104); LIPASE 929 U/L (73-393); MAGNESIUM 2.2 MG/DL (1.5-2.4); SODIUM 150 MMOL/L (135-145); eGFR 4 ML/MIN
[2022-07-01 17:40] LABS: POTASSIUM 6.5 MMOL/L (3.5-5.1); TOTAL CARBON DIOXIDE 8.8 MMOL/L (24-32)
[2022-07-01 17:43] LABS: PLATELET COUNT 38 X10'3 (140-440)
--- NOTE | 2022-07-01 17:45 | NUR ---
Patient anuric, unable to obtain urine.
[2022-07-01 17:52] LABS: PLATELET COUNT 38 X10'3 (140-440)
[2022-07-01 17:54] LABS: ANISOCYTOSIS 2+; PLATELET ESTIMATE DECREASED; TOTAL CELLS COUNTED 100
[2022-07-01 17:55] LABS: BURR CELLS 1+; ELLIPTOCYTES FEW; SCHISTOCYTES FEW
--- NOTE | 2022-07-01 18:38 | NUR ---
Patient repositioned in bed at this time, naveen hugger was noted on top of blankets, this was corrected for patient rewarming. Family remains at bedside. Patient VS updated, patient remains on simple mask at 5L. Not enough urine output noted for UA collection at this time, scant dark urine noted in catheter tubing.
--- NOTE | 2022-07-01 19:00 | NUR ---
pt placed onto a hospital bed.
[2022-07-01] MEDS ORDERED: fentaNYL/PF 50MCG/1 ML 2ML syringe IV ONE (19:50)
[2022-07-01] MEDS ORDERED: ondansetron/PF 4mg/2ml inj IV PRN (20:05)
[2022-07-01] MEDS ORDERED: morphine ORAL 5MG/0.25 ML (Conc. morphine) oral syringe PO PRN (20:25)
[2022-07-01] MEDS ORDERED: LORazepam 2 mg/ml vial IV PRN ×2 (20:25→20:30)
[2022-07-01] MEDS ORDERED: acetaminophen 325mg tablet PO PRN (20:30)
--- NOTE | 2022-07-01 20:56 | NUR ---
Report called to Tracie on surg, patient cleared for transport to receiving unit.
[2022-07-01 21:10] VITALS: BP 100/45
--- NOTE | 2022-07-01 21:10 | NUR ---
PATIENT ADMITTED TO ROOM 351 FROM ER FOR END OF LIFE CARE AND RENAL FAILURE. PATIENT ON 5L O2 PER SIMPLE MASK. NON RESPONDING. PLACED COMFORTABLE IN BED. VITAL SIGNS TAKEN AND RECORDED.
[2022-07-02] MEDS ORDERED: morphine 10mg/0.5ml (conc. morphine) oral syringe PO PRN (01:40)
--- NOTE | 2022-07-02 06:30 | NUR ---
Problems reprioritized. Patient report given, questions answered & plan of care reviewed with DEBORAH LEOS.
--- NOTE | 2022-07-02 06:53 | NUR ---
Patient in room [facility] 351. I have received report from Alfonso MCNAIR and had the opportunity to ask questions and assume patient care. Pt is breathing on 5 LPM via face mask, mouth breathing, FLACC 0/10, pt lying supine, Altaf Hugger warmer on patient.
--- NOTE | 2022-07-02 09:25 | NUR ---
Noted pt with a low Ever of 11. Per EMR no edema and skin is intact. Pt is DNR with comfort care, recommend liberalizing to regular diet if pt to continue with a PO diet. Pt with a low BMI for geriatric age however current wt isn't scaled. Will continue to follow per LOS. Recommendations: 1) Bowel care per comfort care measures Addendum: 07/02/22 at [address] Amended: Links added.
[2022-07-02 10:00] VITALS: BP 66/17
[2022-07-02] MEDS: HYDROmorphone 1 mg/ml syringe IV PRN ×2 (12:45→17:06)
[2022-07-02] MEDS ORDERED: scopolamine 1mg/72 hr patch TD SCH (14:00)
--- NOTE | 2022-07-02 15:44 | NUR ---
COFFERDAM CONSTRUCTION SUPERVISOR documentation: I have reviewed and agree with all interventions, assessments performed and documented by Eliot Bentley LVN.
--- NOTE | 2022-07-02 17:45 | NUR ---
Pt RR 12 breaths per minute, 6 seconds of apnea.
--- NOTE | 2022-07-02 17:59 | NUR ---
PATIENT AT 175. WAITING FOR THE HOME TO ASSOCI[facility] MER[facility] THE BODY.
--- NOTE | 2022-07-02 17:59 | NUR ---
RN IS TO DOCUMENT YES TO ALL APPLICABLE AREAS Pronouncement of : 1. Time Physician Notified:1810 hrs 2. Date of :07/02/22 3. Time of : 1759hrs 4. DNR/Withdraw life support documented: Yes. DNR with Comfort care 5. Monitor strip has been placed on chart: yes 6. Assessment process is of one-minute duration and includes following criteria: a) Patient is unresponsive to all stimuli: yes, unresponsive b) Pupils fixed and non-reactive: yes, no response c) Auscultation of precordium reveals absence of heart tones:yes, no heart beat x 1 min d) Auscultation of lungs reveals absence of breath sounds: yes, no lung sounds x 1 min e) Absence of blood pressure / all vital signs: yes, absent blood pressure and vital signs f) QRS complexes are not present on monitor / EKG strip:- Asystole g) Pacer spikes without capture: none 4. Comments: Pt grieving appropriately
--- NOTE | 2022-07-02 18:00 | NUR ---
Problems reprioritized. Patient report given, questions answered & plan of care reviewed with Prudence RN.
--- NOTE | 2022-07-02 18:10 | NUR ---
Paged Page Accepted Message: [id number]- [facility]- Pt at 1759hrs. LBharat Bentley LVN Transaction number: [id number]
--- NOTE | 2022-07-02 18:41 | NUR ---
Patient in room [facility] 351. I have received report from DEBORAH LEOS and had the opportunity to ask questions and assume patient care.
--- NOTE | 2022-07-02 20:33 | NUR ---
[facility]
== END 2022-07-02 21:16 ==
LOC: ER 16:36 → ED HOLD 20:06 → SUR 3N 21:06
PROVIDERS: ADMIT Family Medicine; ATTEND Family Medicine
DX: I21.9 Acute myocardial infarction, unspecified (principal); E43 Unspecified severe protein-calorie malnutrition; N18.6 End stage renal disease; I13.2 Hypertensive heart and chronic kidney disease with heart failure and with stage 5 chronic kidney disease, or end stage renal disease; D61.818 Other pancytopenia; E87.0 Hyperosmolality and hypernatremia; E87.20 Acidosis, unspecified; K92.2 Gastrointestinal hemorrhage, unspecified; N17.9 Acute kidney failure, unspecified; N39.0 Urinary tract infection, site not specified; Z68.1 Body mass index [BMI] 19.9 or less, adult; Z66 Do not resuscitate; Z51.5 Encounter for palliative care; E87.5 Hyperkalemia; I46.9 Cardiac arrest, cause unspecified; F03.90 Unspecified dementia, unspecified severity, without behavioral disturbance, psychotic disturbance, mood disturbance, and anxiety; I95.9 Hypotension, unspecified; I25.10 Atherosclerotic heart disease of native coronary artery without angina pectoris; I35.0 Nonrheumatic aortic (valve) stenosis; I48.91 Unspecified atrial fibrillation; I50.9 Heart failure, unspecified; J44.9 Chronic obstructive pulmonary disease, unspecified; R62.7 Adult failure to thrive; Z86.711 Personal history of pulmonary embolism; Z86.73 Personal history of transient ischemic attack (TIA), and cerebral infarction without residual deficits; Z88.0 Allergy status to penicillin; Z88.2 Allergy status to sulfonamides; Z90.5 Acquired absence of kidney; Z90.710 Acquired absence of both cervix and uterus; Z86.718 Personal history of other venous thrombosis and embolism; Z79.899 Other long term (current) drug therapy
CPT/HCPCS: 36415; 71045; 80053; 82140; 82948; 83605; 83690; 83735; 83880; 84145; 84484; 85007; 85025; 85379; 85384; 85610; 85730; 87040; 87081; 96374; 96375; 99285; A4620; A6213; A6250; G0378; J1170; J3010; J3490; J7030